=== PATIENT | female | born 1975 | race Two or more races ===

== ENCOUNTER 2021-03-18 23:32 | Emergency (ER) | payer MEDICAID, SELFPAY ==
--- NOTE | ~2021-03-18 | CT_ITS ---
EXAMINATION: CT ABDOMEN AND PELVIS WITHOUT CONTRAST CLINICAL INFORMATION: Suspicion for obstruction COMPARISON: None TECHNIQUE: Multidetector volumetric imaging was performed from the superior aspect of the liver through the pubic symphysis. Sagittal and coronal reformatted images were obtained on the technologist's workstation. This CT examination was performed using dose optimization techniques as appropriate, variously including the following: *Automated exposure control *Adjustment of mA and/or kV according to patient size (this includes techniques or standardized protocols for targeted exams where dose is matched to indication/reason for exam; i.e. extremities or head) *Use of iterative reconstruction technique DLP: 469 mGy-cm FINDINGS: LUNG BASES: The visualized lung bases are unremarkable. LIVER, GALLBLADDER, AND BILIARY TREE: The liver is normal in size, shape, and attenuation. No focal hepatic lesion or biliary ductal dilatation is present. The gallbladder is unremarkable with no evidence of radiopaque gallstones, gallbladder wall thickening, or obvious pericholecystic inflammatory changes. PANCREAS: Unremarkable. SPLEEN: Unremarkable. ADRENAL GLANDS: Unremarkable. KIDNEYS AND URETERS: The kidneys are normal in size, shape, and attenuation. No hydronephrosis, hydroureter, or obstructing calculi seen. Few scattered punctate renal calculi bilaterally No perinephric stranding. BLADDER: Minimally distended and grossly unremarkable. GASTROINTESTINAL TRACT: The small and large bowel are unremarkable without evidence for obstruction or wall thickening. The appendix is unremarkable. No free fluid or free air is seen. ABDOMINAL WALL: No significant hernia is appreciated. LYMPH NODES: Normal. VASCULAR: Mild scattered atherosclerotic calcifications. PELVIC VISCERA: Uterus appears prominent, which could represent underlying fibroids. OSSEOUS STRUCTURES: Unremarkable. CT/CT abdomen pelvis wo con IMPRESSION: 1. No acute findings identified. No evidence of bowel obstruction. 2. Prominent uterus suggesting underlying fibroids, which could be further assessed with ultrasound.
[2021-03-18 23:51] VITALS: BP 131/76; PULSE 92; RESP 16; TEMP 36.6; O2SAT 99; BMI 21.7
--- NOTE | 2021-03-19 | ECG_ITS ---
Test Reason : ABDOMINAL PAIN Blood Pressure : / mmHG Vent. Rate : 078 BPM Atrial Rate : 078 BPM P-R Int : 154 ms QRS Dur : 086 ms QT Int : 382 ms P-R-T Axes : 050 038 036 degrees QTc Int : 435 ms Normal sinus rhythm RSR' or QR pattern in V1 suggests right ventricular conduction delay Otherwise normal ECG No previous ECGs available Referred By: Scarlett Lima Electronically Signed By:DION MENDOZA MD
--- NOTE | 2021-03-19 00:01 | ED_ITS ---
HPI - Abdominal Pain General Chief Complaint: Abdominal Pain Stated Complaint: Abd pain Time Seen by Provider: 03/18/21 23:34 Source: patient Mode of arrival: ambulatory Limitations: no limitations History of Present Illness HPI narrative: Patient comes to emergency room complaining of abdominal pain. Patient states she feels very distended, bloated. Patient is known to have constipation but she has never had it this severe pain. Patient complaining of nausea, burping, passing gas. Patient denies vomiting or diarrhea. Denies fever chills, no urinary symptoms. Related Data Previous Rx's Medication Instructions Recorded polyethylene glycol 3350 17 gram 17 g PO BID #30 ea 03/19/21 oral powder packet (Miralax) Allergies Allergy/AdvReac Type Severity Reaction Status Date / Time simvastatin Allergy Unknown nausea, Unverified 09/27/18 00:00 vomiting and dizziness No Known Allergies Allergy Unverified 02/12/20 18:37 [No Known Allergies*] Review of Systems Review of Systems Constitutional : No Weight loss, No Fever, No Chills, No Night Sweats, No Fatigue, No Malaise ENT/Mouth : No Hearing loss, No Ear Pain, No Nasal Congestion, No Sinus Pain, No Hoarseness, No sore throat, No Rhinorrhea, No Swallowing Difficulty Eyes: No Eye Pain, No Swelling, No Redness, No Foreign Body, No Discharge, No Vision Changes Cardiovascular : No Chest Pain, No SOB, No Dyspnea on Exertion, No Orthopnea, No Edema, No Palpitations Respiratory : No Cough, No Sputum, No Wheezing, No Smoke Exposure, No Dyspnea Gastrointestinal : Complaining of Nausea, No Vomiting, No Diarrhea, complaining of chronic constipation, abdominal distension and abdominal pressure worse in the epigastric area Genitourinary : no irregular bleeding, No Dysuria, No Urinary Frequency, No Hematuria, No Urinary Incontinence, No Urgency, No Flank Pain, No Urinary Flow Changes, No Hesitancy Musculoskeletal : No joint pain, No Myalgias, No Joint Swelling Skin : No Skin Lesions, No rash Neuro : No Weakness, No Numbness, No Paresthesias, No Loss of Consciousness, No Dizziness, No Headache Psych : No Anxiety/Panic, No Depression, No SI/HI/AH/VH, No Social Issues, Heme/Lymph: No Bruising, No Bleeding,No Lymphadenopathy Endocrine : No Polyuria, No Polydipsia, No Temperature Intolerance Physical Exam Vital Signs: Vital Signs: Last Vital Signs Temp 98.4 F 03/19/21 01:24 Pulse 82 03/19/21 01:24 Resp 18 03/19/21 01:24 BP 115/66 03/19/21 01:24 Pulse Ox 97 03/19/21 01:24 Body Mass Index 21.7 Const: Other: Appearance: Alert. Oriented X3. No acute distress. Eyes: Pupils equal, round and reactive to light. ENT: Pharynx normal. Neck: Normal inspection. Neck supple. No lymph nodes noted. No crepitus CVS: Normal heart rate and rhythm. Pulses normal. Normal S1 and S2 Respiratory: No respiratory distress. Breath sounds normal. No Wheezing. No rales Abdomen: Soft ,, diffusely mildly tender, negative Pinto sign, distended, no guarding, no rebound Skin: Skin warm and dry. Normal skin color. Normal skin turgor. Extremities: No lower extremity edema. No Lacerations. No Rash Neuro: Oriented X 3. No motor deficit. No sensory deficit. Moving all extermities. No slurred speech. Course Course Course Narrative: I discussed the labs and imaging with the patient, no acute findings, discussed with the patient that she has possibly large fibroids, instructed to follow-up with her PCP/OBGYN. Patient states she has not taking any medication for constipation. MDM - Abdominal Pain Lab Data Result diagrams: 03/19/21 00:23 03/19/21 00:23 Labs: Lab Results 03/19/21 03/19/21 03/19/21 Range/Units 00:23 00:23 00:58 WBC 6.0 (4.8-10.8) X10*3/uL RBC 4.91 (4.20-5.50) X10*6/uL Hgb 15.1 (12.0-16.0) g/dl Hct 43.5 (37-47) % MCV 88.6 (80-98) fL MCH 30.8 (27.0-33.0) pg MCHC 34.7 (31.0-35.0) g/dl RDW 11.9 (11.0-16.0) % Plt Count 199 (160-400) X10*3/uL MPV 11.2 (9.4-12.3) fL Immature Gran % (Auto) 0.2 (0.0-0.4) % Neut % (Auto) 62.8 (45-73) % Lymph % (Auto) 26.0 (20-40) % [place] % (Auto) 9.5 (2-11) % Eos % (Auto) 1.2 (0-4) % Baso % (Auto) 0.3 (0-2) % Lymph # (Auto) 1.6 (1.2-4.9) X10*3/uL [place] # (Auto) 0.6 (0.1-1.2) X10*3/uL Eos # (Auto) 0.1 (0.0-0.4) X10*3/uL Baso # (Auto) 0.0 (0.0-0.2) X10*3/uL Abs Immat Gran (auto) 0.01 (0.00-0.03) X10*3/uL Absolute Neuts (auto) 3.8 (2.0-8.3) X10*3/uL Absolute Nucleated RBC 0.000 (0.0-0.012) X10*3/uL Nucleated RBC % (auto) 0.0 (0.0-0.2) /100WBC Sodium 137 (135-145) mmol/L Potassium 3.8 (3.3-5.1) mmol/L Chloride 105 (96-108) mmol/L Carbon Dioxide 22 (22-29) mmol/L Anion Gap 14 (12-20) BUN 15 (9-16) mg/dL Creatinine 0.72 (0.5-1.4) mg/dL Estim Creat Clear Calc 105.5 Estimated GFR > 60 Random Glucose 258 H (60-115) mg/dL Calcium 9.1 (8.4-10.2) mg/dL Total Bilirubin 0.9 (0.0-1.0) mg/dL Direct Bilirubin 0.3 (0.0-0.5) mg/dL AST 24 (5-31) U/L ALT 47 H (0-31) U/L Alkaline Phosphatase 74 (39-117) U/L Total Protein 7.1 (6.5-8.0) g/dL Albumin 4.4 (3.5-5.0) g/dL Lipase 61 (8-78) U/L Urine Color DK YELLOW Urine Appearance CLEAR Urine pH 6.0 (5.0-8.0) Ur Specific [place] >= 1.030 H (1.005-1.025) Urine Protein TRACE (NEG-TRACE) MG/DL Urine Glucose (UA) >=1000 H (NEG) MG/DL Urine Ketones 15 (NEG) MG/DL Urine Blood NEG (NEG) Urine Nitrite NEG (NEG) Ur Leukocyte Esterase NEG (NEG) Acetone, Qual Negative (Negative) Imaging Data CT scan - abdomen: Radiologist's impression: FINDINGS: LUNG BASES: The visualized lung bases are unremarkable.? LIVER, GALLBLADDER, AND BILIARY TREE: The liver is normal in size, shape, and attenuation. No focal hepatic lesion or biliary ductal dilatation is present. The gallbladder is unremarkable with no evidence of radiopaque gallstones, gallbladder wall thickening, or obvious pericholecystic inflammatory changes.? PANCREAS: Unremarkable.? SPLEEN: Unremarkable.? ADRENAL GLANDS: Unremarkable.? KIDNEYS AND URETERS: The kidneys are normal in size, shape, and attenuation. No hydronephrosis, hydroureter, or obstructing calculi seen. Few scattered punctate renal calculi bilaterally No perinephric stranding. BLADDER: Minimally distended and grossly unremarkable.? GASTROINTESTINAL TRACT: The small and large bowel are unremarkable without evidence for obstruction or wall thickening. The appendix is unremarkable. No free fluid or free air is seen. ABDOMINAL WALL: No significant hernia is appreciated.? LYMPH NODES: Normal. VASCULAR: Mild scattered atherosclerotic calcifications. PELVIC VISCERA: Uterus appears prominent, which could represent underlying fibroids.? OSSEOUS STRUCTURES: Unremarkable.? CT/CT abdomen pelvis wo con IMPRESSION: 1.? No acute findings identified. No evidence of bowel obstruction. 2.? Prominent uterus suggesting underlying fibroids, which could be further assessed with ultrasound. Discharge Plan Discharge Clinical Impression: Constipation, Abdominal distension Patient Disposition: Home, Self-Care Instructions: Constipation (ED) Prescriptions: New polyethylene glycol 3350 [Miralax] 17 gram powder in packet 17 g PO BID Qty: 30 RF: 0 PMFSH Past Medical History Medical History (Updated 03/19/21 @ 01:36 by Scarlett Lima MD) Diabetes mellitus Social History Social History Advance Directives: No Advance Directives Information Provided: No Patient : No
[2021-03-19 00:28] LABS: MANUAL DIFF FLAG NO
[2021-03-19 00:29] LABS: Basophils Percent Auto 0.3 % (0-2); Eosinophils Absolute Auto 0.1 X10*3/uL (0.0-0.4); Eosinophils Percent Auto 1.2 % (0-4); Hematocrit 43.5 % (37-47); Hemoglobin 15.1 g/dl (12.0-16.0); Imm Gran Abs Auto 0.01 X10*3/uL (0.00-0.03); Imm Gran Pct Auto 0.2 % (0.0-0.4); Lymphocytes Absolute Auto 1.6 X10*3/uL (1.2-4.9); Mean Corpuscular HGB Conc 34.7 g/dl (31.0-35.0); Mean Corpuscular Hemoglobin 30.8 pg (27.0-33.0); Mean Corpuscular Volume 88.6 fL (80-98); Mean Platelet Volume 11.2 fL (9.4-12.3); Monocytes Absolute Auto 0.6 X10*3/uL (0.1-1.2); Monocytes Percent Auto 9.5 % (2-11); Neutrophils Absolute Auto 3.8 X10*3/uL (2.0-8.3); Neutrophils Percent Auto 62.8 % (45-73); Platelet Count 199 X10*3/uL (160-400); Red Blood Count 4.91 X10*6/uL (4.20-5.50); Red Cell Distribution Width 11.9 % (11.0-16.0)
[2021-03-19 00:38] LABS: Acetone, serum QL Negative (Negative)
[2021-03-19 00:50] LABS: Alanine Aminotransferase 47 U/L (0-31); Albumin Level 4.4 g/dL (3.5-5.0); Alkaline Phosphatase 74 U/L (39-117); Anion Gap 14 (12-20); Aspartate Amino Transferase 24 U/L (5-31); Bilirubin Direct 0.3 mg/dL (0.0-0.5); Bilirubin Total 0.9 mg/dL (0.0-1.0); Blood Urea Nitrogen 15 mg/dL (9-16); Calcium 9.1 mg/dL (8.4-10.2); Carbon Dioxide 22 mmol/L (22-29); Chloride 105 mmol/L (96-108); Creatinine Clr Calc Pharmacy 105.5; Estimated Glomerular Filt Rate > 60; Glucose Random 258 mg/dL (60-115); Lipase 61 U/L (8-78); Potassium 3.8 mmol/L (3.3-5.1); Sodium 137 mmol/L (135-145); Total Protein 7.1 g/dL (6.5-8.0)
[2021-03-19 01:08] LABS: Appearance Urine CLEAR; Color Urine DK YELLOW; Glucose Urine UA >=1000 MG/DL (NEG); Leukocyte Esterase Urine NEG (NEG); Nitrite Urine NEG (NEG); Specific Gravity - Urine >= 1.030 (1.005-1.025); Urine Blood NEG (NEG); Urine Ketones 15 MG/DL (NEG); Urine Protein TRACE MG/DL (NEG-TRACE)
[2021-03-19 01:24] VITALS: BP 115/66; PULSE 82; RESP 18; TEMP 36.9; O2SAT 97
[2021-03-19 01:48] LABS: Mucus Urine 3+ /LPF; RBC Urine 0-2 /HPF (0); Squamous Epithelial Cell Urine 1+ /LPF; WBC Urine 0-2 /HPF (0-4)
== END 2021-03-19 02:00 | disposition home or self-care (01) ==
PROVIDERS: Emergency Provider Emergency Medicine; PCP Internal Medicine
DX: R14.0 Abdominal distension (gaseous) (principal); K59.00 Constipation, unspecified; Z79.899 Other long term (current) drug therapy
CPT/HCPCS: 36415; 74176; 80048; 80076; 81001; 82009; 83690; 85025; 93005; 99284

== ENCOUNTER 2021-04-29 12:13 | Emergency (ER) | payer MEDICAID, SELFPAY ==
[2021-04-29 13:18] VITALS: BP 117/74; PULSE 79; RESP 20; TEMP 36.2; O2SAT 99; BMI 22.3
== END 2021-04-29 17:05 | disposition left against medical advice (07) ==
PROVIDERS: Emergency Provider Emergency Medicine; PCP Internal Medicine
DX: R31.9 Hematuria, unspecified (principal)
CPT/HCPCS: 99282; 99283

== ENCOUNTER 2021-05-13 13:05 | Outpatient (REF) | payer MEDICAID, SELFPAY ==
[2021-05-13 14:56] LABS: Hematocrit 46.2 % (37.0-47.0); Hemoglobin 15.3 g/dl (12.0-16.0); Mean Corpuscular HGB Conc 33.1 g/dl (31.0-35.0); Mean Corpuscular Hemoglobin 30.1 pg (27.0-33.0); Mean Corpuscular Volume 90.8 fL (80.0-98.0); Mean Platelet Volume 11.2 fL (9.4-12.3); Platelet Count 263 X10*3/uL (160-400); Red Blood Count 5.09 X10*6/uL (4.20-5.50); Red Cell Distribution Width 12.1 % (11.0-16.0); White Blood Count 5.9 X10*3/uL (4.8-10.8)
[2021-05-13 15:36] LABS: Thyroid Stimulating Hormone 0.74 uIU/mL (0.32-4.0)
[2021-05-15 09:51] LABS: BV Int Neg Control Negative (Negative); BV Int Pos Control Positive (Positive)
[2021-05-15 11:40] LABS: CT PCR NOT DETECTED (Not Detect.); NG PCR NOT DETECTED (Not Detect.)
[2021-05-19 04:26] LABS: HPV mRNA E6/E7 rflx Not Detected (Not Detected)
== END 2021-05-13 13:06 | disposition home or self-care (01) ==
LOC: HO.LAB 13:05
PROVIDERS: PCP Internal Medicine; Visit Provider Advanced Practice Midwife
DX: Z01.411 Encounter for gynecological examination (general) (routine) with abnormal findings (principal); Z11.51 Encounter for screening for human papillomavirus (HPV); N93.9 Abnormal uterine and vaginal bleeding, unspecified; N94.6 Dysmenorrhea, unspecified; N92.0 Excessive and frequent menstruation with regular cycle; N92.1 Excessive and frequent menstruation with irregular cycle
CPT/HCPCS: 36415; 84443; 85027; 87480; 87491; 87510; 87591; 87624; 87660; 88142

== ENCOUNTER 2021-06-07 13:53 | Outpatient (REF) | payer MEDICAID, SELFPAY ==
--- NOTE | ~2021-06-07 | US_ITS ---
EXAMINATION: US PELVIC AND TRANSVAGINAL CLINICAL INFORMATION: Excessive and frequent menstruation. COMPARISON: Previous pelvic ultrasound October [address] of the abdomen and pelvis February 2021 TECHNIQUE: Ultrasound of the pelvis is performed using both transabdominal and transvaginal transducers along with Doppler. Transvaginal imaging is performed due to inadequate visualization transabdominally. FINDINGS: The uterus is anteverted and measures 11.4 x 6.5 x 8 cm in dimension. Uterine echotexture is heterogeneous. There is a 2.2 x 1.9 x 3.4 cm hypoechoic lesion in the anterior lower uterine segment. There are 2 smaller complex cystic lesions in the anterior uterine body near the endometrium measuring 1.4 x 1.2 x 1.3 cm and 0.7 x 0.7 x 0.8 cm. Appearance is questionable for fibroids with cystic degeneration versus adenomyoma and cysts related to adenomyosis. Endometrial thickness is normal measuring 1 cm. The right ovary measures 2.8 x 1.7 x 2 cm. There is a minimally complex right ovarian cyst measuring 1.3 x 1 x 1 cm with some dependent low level echoes. The left ovary is normal-appearing and measures 2.8 x 1.5 x 2.4 cm. There is no fluid in the pelvis. US/US pelvic and transvaginal IMPRESSION: Slightly enlarged heterogeneous uterus. Three solid and cystic lesions in the anterior uterine body and lower uterine segment, question representing fibroids versus adenomyoma/adenomyosis. Small 1.3 x 1 cm minimally complex right ovarian cyst.
== END 2021-06-07 13:54 | disposition home or self-care (01) ==
LOC: HO.HMGCX 13:53
PROVIDERS: PCP Internal Medicine; Visit Provider Advanced Practice Midwife
DX: N92.0 Excessive and frequent menstruation with regular cycle (principal); N93.9 Abnormal uterine and vaginal bleeding, unspecified
CPT/HCPCS: 76830; 76856

== ENCOUNTER 2021-06-10 08:23 | Outpatient (REF) | payer MEDICAID, SELFPAY | END 2021-06-10 08:24 | disposition home or self-care (01) | LOC: HO.LAB 08:23 | PROVIDERS: PCP Internal Medicine; Visit Provider Advanced Practice Midwife | DX: N93.9 Abnormal uterine and vaginal bleeding, unspecified (principal); N83.299 Other ovarian cyst, unspecified side; Z71.2 Person consulting for explanation of examination or test findings; Z32.02 Encounter for pregnancy test, result negative | CPT/HCPCS: 58100; 81025; 88305 ==

== ENCOUNTER 2021-08-09 14:08 | Outpatient (REF) | payer MEDICAID, SELFPAY ==
--- NOTE | ~2021-08-09 | US_ITS ---
EXAMINATION: US PELVIS CLINICAL INFORMATION: History of complex cyst. COMPARISON: Ultrasound pelvis 06/07/2021. TECHNIQUE: Ultrasound of the pelvis is performed using both transabdominal and transvaginal transducers along with Doppler. Transvaginal imaging is performed due to inadequate visualization transabdominally. FINDINGS: UTERUS: The uterus is anteverted, anteflexed and measures 12.7 x 6.7 x 8.5 cm. The double wall endometrial thickness is 1.0 cm. The uterus is smooth in contour and has normal myometrial echogenicity. There are several hypoechoic lesions. The largest lesion in the posterior lower uterine segment measures 3.0 x 2.6 x 2.5 cm. Previously noted 2.2 x 1.9 x 3.4 cm. Previously visualized two cystic lesions in the body of uterus are not visualized at this time. ADNEXA: Both ovaries are visualized. There is normal color flow to the adnexa. There is no ovarian torsion. There is a small amount of free fluid in the cul-de-sac. Right ovary measures 3.4 x 3.1 x 2.8 and volume 11.4 mL. There is an anechoic resolving corpus luteal cyst measuring 1.3 x 1.5 x 1.3 cm. Left ovary measures 2.9 x 1.7 x 2.4 cm and volume 7.2 mL. US/US pelvic and transvaginal IMPRESSION: Slight increase in the known lower uterine segment heterogeneous-appearing fibroid. Two cystic lesions in the uterus are not seen at this time. There is a resolving corpus luteal cyst right ovary. Left ovary is unremarkable. There is a small amount of free fluid in the cul-de-sac.
[2021-08-15 19:27] LABS: CA 125 New Method 31 U/mL (<35); CA-125 29 U/mL (<35)
== END 2021-08-09 14:09 | disposition home or self-care (01) ==
LOC: HO.US 14:08
PROVIDERS: PCP Internal Medicine; Visit Provider Advanced Practice Midwife
DX: N83.299 Other ovarian cyst, unspecified side (principal)
CPT/HCPCS: 36415; 76830; 76856; 86304

== ENCOUNTER → 2021-08-16 12:34 | Outpatient (BNVA) | payer MEDICAID, SELFPAY | PROVIDERS: PCP Internal Medicine; Referring Provider Internal Medicine; Visit Provider Nurse Practitioner Family | DX: K21.9 Gastro-esophageal reflux disease without esophagitis (principal); K59.01 Slow transit constipation | CPT/HCPCS: 83013; 99202 ==

== ENCOUNTER 2021-08-16 15:30 | Outpatient (REF) | payer MEDICAID, SELFPAY ==
[2021-08-17 11:29] LABS: H Pylori Breath Test Positive (Negative)
== END 2021-08-16 15:31 | disposition home or self-care (01) ==
LOC: HO.LNP 15:30
PROVIDERS: Visit Provider Nurse Practitioner Family
DX: N93.9 Abnormal uterine and vaginal bleeding, unspecified (principal); N83.299 Other ovarian cyst, unspecified side; Z71.2 Person consulting for explanation of examination or test findings
CPT/HCPCS: 83013

== ENCOUNTER → 2021-08-19 08:32 | Outpatient (BNVA) | payer MEDICAID, SELFPAY | PROVIDERS: PCP Internal Medicine; Visit Provider Advanced Practice Midwife | DX: Z30.430 Encounter for insertion of intrauterine contraceptive device (principal) | CPT/HCPCS: 58300; 81025 ==

== ENCOUNTER 2021-09-27 08:24 | Outpatient (REF) | payer MEDICAID, SELFPAY ==
[2021-09-27 09:06] LABS: Estimated Average Glucose 194 mg/dL; Hemoglobin A1c % 8.4 %
[2021-10-03 14:37] LABS: Vitamin D 25-OH, D2 11 ng/mL; Vitamin D 25-OH, D3 16 ng/mL; Vitamin D 25-OH, Total 27 ng/mL (30-100)
== END 2021-09-27 08:25 | disposition home or self-care (01) ==
LOC: HO.LAB 08:24
PROVIDERS: PCP Internal Medicine; Visit Provider Nurse Practitioner Family
DX: E11.9 Type 2 diabetes mellitus without complications (principal); E55.9 Vitamin D deficiency, unspecified
CPT/HCPCS: 36415; 82306; 83036

== ENCOUNTER → 2021-09-30 10:53 | Outpatient (BNVA) | payer MEDICAID, SELFPAY | PROVIDERS: PCP Internal Medicine; Referring Provider Internal Medicine; Visit Provider Nurse Practitioner Family | DX: Z12.11 Encounter for screening for malignant neoplasm of colon (principal); K21.9 Gastro-esophageal reflux disease without esophagitis; K58.1 Irritable bowel syndrome with constipation | CPT/HCPCS: 99212 ==

== ENCOUNTER 2022-01-31 08:48 | Day surgery (SDC) | payer MEDICAID, SELFPAY ==
--- NOTE | 2022-01-27 12:33 | P.CONAN_ITS ---
Documented by User: Lisa Sanchez NP 01/27/22 12:33 HPI - Anesthesia Eval Consult details Narrative: 46yo F for Upper Endoscopy and Colonoscopy PMF Active Problems Active Problems: All Active Problems (Updated 09/30/21 @ 12:00 by Telma Lambert, [facility]) Helicobacter pylori (H. pylori) (Acute) Complex ovarian cyst (Acute) Abnormal uterine bleeding (AUB) (Acute) Heavy menses (Acute) Past Medical History Medical History Abnormal uterine bleeding (AUB) Diabetes mellitus Gastroesophageal reflux disease Heavy menses Helicobacter pylori (H. pylori) Irritable bowel syndrome Family History Family History Father Diabetes HTN (hypertension) Mother Diabetes Paternal Grandfather Diabetes Maternal Grandfather Colon cancer Surgical History Surgical History H/O LEEP Hx of colonoscopy Social History Social History (Updated 09/30/21 @ 11:26 by Olamide Fonseca) Household Members: Children Alcohol intake: never Patient Tobacco Use Status: Never used Tobacco Use of substances other than those prescribed or required for medical reasons: No Are you DNR?: No Advance Directives: No Advance Directives Information Provided: Yes Patient : No (ucg neg) Meds Allergies Allergy/AdvReac Type Severity Reaction Status Date / Time simvastatin Allergy Unknown nausea, Verified 01/25/22 10:59 vomiting and dizziness Home Medications Medication Instructions Recorded Confirmed Last Taken Type atorvastatin 40 mg tablet 40 mg PO DAILY 05/13/21 01/25/22 Unknown History dulaglutide 3 mg/0.5 mL mg subcut QWEEK 05/13/21 Unknown History subcutaneous pen injector (Trulicity) empagliflozin 25 mg tablet 25 mg PO QAM 05/13/21 01/25/22 Unknown History (Jardiance) gabapentin 300 mg capsule 300 mg PO BID 05/13/21 01/25/22 Unknown History insulin glargine 100 unit/mL 10 unit subcut QPM 05/13/21 Unknown History subcutaneous solution (Lantus U-100 Insulin) lisinopril 2.5 mg tablet 2.5 mg PO DAILY 05/13/21 01/25/22 Unknown History levonorgestrel 20 mcg/24 hours (7 vaginal DAILY 08/16/21 Unknown History yrs) 52 mg intrauterine device (Mirena) Exam Exam Date and Time: January 27, 2022 123 Assessment and Plan Assessment Anesthesia Assessment: Chart Reviewed Documented by User: Pradeep Cabrera MD 01/31/22 10:03 [facility] Past Medical History Medical History Abnormal uterine bleeding (AUB) Diabetes mellitus Gastroesophageal reflux disease Heavy menses Helicobacter pylori (H. pylori) Irritable bowel syndrome Family History Family History Father Diabetes HTN (hypertension) Mother Diabetes Paternal Grandfather Diabetes Maternal Grandfather Colon cancer Family history of problems with anesthesia: No Surgical History Surgical History H/O LEEP Hx of colonoscopy History of Problems with Anesthesia: No Social History Social History (Updated 09/30/21 @ 11:26 by Olamide Fonseca) Household Members: Children Alcohol intake: never Patient Tobacco Use Status: Never used Tobacco Use of substances other than those prescribed or required for medical reasons: No Are you DNR?: No Advance Directives: No Advance Directives Information Provided: Yes Patient : No (ucg neg) Meds Allergies Allergy/AdvReac Type Severity Reaction Status Date / Time simvastatin Allergy Unknown nausea, Verified 01/25/22 10:59 vomiting and dizziness Home Medications Medication Instructions Recorded Confirmed Last Taken Type atorvastatin 40 mg tablet 40 mg PO DAILY 05/13/21 01/25/22 Unknown History dulaglutide 3 mg/0.5 mL mg subcut QWEEK 05/13/21 Unknown History subcutaneous pen injector (Trulicity) empagliflozin 25 mg tablet 25 mg PO QAM 05/13/21 01/25/22 Unknown History (Jardiance) gabapentin 300 mg capsule 300 mg PO BID 05/13/21 01/25/22 Unknown History insulin glargine 100 unit/mL 10 unit subcut QPM 05/13/21 Unknown History subcutaneous solution (Lantus U-100 Insulin) lisinopril 2.5 mg tablet 2.5 mg PO DAILY 05/13/21 01/25/22 Unknown History levonorgestrel 20 mcg/24 hours (7 vaginal DAILY 08/16/21 Unknown History yrs) 52 mg intrauterine device (Mirena) Exam Airway Mallampati Class: II TM Dist: >3cm Neck ROM: Full Loose/Missing/Broken Teeth: No Heart: rrr Lungs: clear Assessment and Plan Final Anesthetic Review Family History of Problems with Anesthesia: No History of Problems with Anesthesia: No NPO: Yes ASA Class: II Final Preanesthetic Review: No Changes in Pt Med Stat, Meds/Allgs Chart Reviewed, Consent Obtained/Reviewed and Anes Risks/Benef Reviewed Patient Risk: Intermediate Procedure Risk: Low Anesthetic Plan Anesthetic Plan: MAC: Disposition: Standard PACU
--- NOTE | 2022-01-31 09:14 | MHC.SHP ---
Pre-Procedural Eval Section A Date of Service: 01/31/22 Section B Chief Complaint: IBS,reflux disease,screening Relevant Family History (Specify if Yes): No Relevant Social History: None Present Medications: see Short Stay Collaborative assessment Medical History: Significant History (Abnormal uterine bleeding (AUB) Diabetes mellitus Gastroesophageal reflux disease Heavy menses Helicobacter pylori (H. pylori) Irritable bowel syndrome) History of Previous Operations: Relevant previous surgery/procedure and date(s) (LEEP, colonoscopy) Allergies: Allergies Allergy/AdvReac Type Severity Reaction Status Date / Time simvastatin Allergy Unknown nausea, Verified 01/25/22 10:59 vomiting and dizziness Review of Systems Sugical H&P ROS: Negative: Constitution, Cardiovascular, Respiratory, Neurological, Psychiatric, Hem-Onc, Allergic/Immunologic, Gastrointestinal, Genitourinary, Musculoskeletal, Integumentary, Endocrine and Eyes/Ears/Nose/Throat Exam Surgical H&P Exam: Normal: HEENT, Normal: Heart, Normal: Lungs, Normal: Extremities, Normal: Abdomen, Normal: Skin and Normal: Neurological Plan Diagnosis/Plan: Unchanged I have reviewed the history and physical and performed a pertinent physical examination on my patient. No changes have occurred unless specified.
[2022-01-31 09:27] LABS: UPreg QC Valid YES; Urine Pregnancy NEGATIVE (NEGATIVE)
[2022-01-31 09:35] VITALS: BP 121/70; PULSE 88; RESP 18; TEMP 36.2; O2SAT 99; BMI 24.1
[2022-01-31 09:36] VITALS: BMI 24.1
[2022-01-31] MEDS: Lactated Ringers 1,000 ML 100 ML IVCONT (09:53)
[2022-01-31 10:00] LABS: Glucose, Whole Blood 148 mg/dL (60-115)
--- NOTE | 2022-01-31 10:03 | P.OP_ITS ---
Operative Note Operative Note Date of Service: 01/31/22 Narrative: Operative Information Procedure Description: EGD, Colonoscopy Indication: GERD, abdominal pain Anesthesia: MAC FLEXIBLE TRANSORAL UPPER GASTROINTESTINAL ENDOSCOPY AND COLONOSCOPY PROCEDURE NOTE UPPER ENDOSCOPY Consent: Indications for the procedure and potential complications of bleeding, perforation, reaction to medications and missed diagnosis were discussed with the patient and informed consent was obtained. Instrument: Olympus GIF H 190 J mid size upper endoscope Monitoring: Vital signs and clinical assessment, continuous EKG monitoring, Pulse oximetry, Carbon Dioxide monitoring and blood pressure monitoring were done throughout the procedure. Procedure: The patient was placed in the left lateral decubitis position and pre-procedure medications were administered and a bite block was placed. The endoscope was inserted into the mouth and advanced under direct vision to the third part of duodenum. A careful inspection was made as the upper endoscope was withdrawn including a retroflexed examination of the proximal stomach; Findings and interventions are described below. Findings: Larynx:normal Esophagus: GE junction at 39 cm, diaphragm hiatus at 39 cm, normal mucosa Stomach: Patchy erythema. Biopsies were obtained. Grade 2 flap valve on retroflexed examination of the cardia. Duodenum: PAtchy erythema, bx taken Intervention: Biopsies as noted above COLONOSCOPY Instrument: Olympus variable stiffness pediatric scope 190L Colonoscopy Monitoring: Vital signs and clinical assessment, continuous EKG monitoring, Pulse oximetry, Carbon Dioxide monitoring and blood pressure monitoring were done throughout the procedure. Colon withdrawal time was [] minutes. Procedure: The patient was placed in the left lateral decubitis position and pre-procedure medications were administered. After a digital rectal examination of the ano-rectum, the video colonoscope was inserted into the rectum and advanced through the colon to the cecum/TI. The colonoscope was slowly withdrawn in a retrograde panoramic fashion and the colon mucosa was carefully examined including a retroflexed view of the rectum. Findings and interventions are described below. Procedure Difficulty:moderate due to looping, pressure applied Findings: Terminal Ileum-normal, bx taken ranomd colon bx taken Cecum:normal Ascending Colon: normal Transverse Colon -normal Descending Colon:normal Sigmoid Colon: normal Rectum: Retroflexion with small internal hemorrhoids, grade I Anorectum - normal Colon preparation: [place] Bowel Preparation Scale Right colon; 1 Transverse colon: 1-2 Left colon; 1 (0 = Unprepared colon segment with mucosa not seen due to solid stool that cannot be cleared. 1 = Portion of mucosa of the colon segment seen, but other areas of the colon segment not well seen due to staining, residual stool and/or opaque liquid. 2 = Minor amount of residual staining, small fragments of stool and/or opaque liquid, but mucosa of colon segment seen well. 3 = Entire mucosa of colon segment seen well with no residual staining, small fragments of stool or opaque liquid) Impression and Post Procedure Diagnosis: Endoscopy Findings: gastritis Colonoscopy Findings: poor prep internal hemorrhoids Plan: Await Pathology results Repeat Colonoscopy in 6-12 months or earlier if clinically indicated, check for compliance with prep, if took correctly then next time 2 d of clear liquids if possible High fiber diet leaflet avoid straining at stool, epsom salts and sitz bath, anusol supps or cream Above findings were reviewed with the patient and relevant handouts were provided if indicated.
[2022-01-31 10:50] VITALS: BP 109/68; PULSE 91; RESP 16; TEMP 36.1; O2SAT 97
[2022-01-31 11:05] VITALS: BP 116/72; PULSE 85; RESP 16; O2SAT 97
[2022-01-31 11:19] VITALS: BP 108/68; PULSE 86; RESP 16; TEMP 36.2; O2SAT 96
[2022-01-31 11:34] VITALS: BP 106/68; PULSE 77; RESP 15; O2SAT 96
== END 2022-01-31 12:17 | disposition home or self-care (01) ==
PROVIDERS: Nurse Practitioner; PCP Internal Medicine; Visit Provider Internal Medicine Gastroenterology
PROC: (CPT 45380; principal; 2022-01-31 10:20)
DX: Z12.11 Encounter for screening for malignant neoplasm of colon (principal); K64.0 First degree hemorrhoids; K58.1 Irritable bowel syndrome with constipation; K21.9 Gastro-esophageal reflux disease without esophagitis; K29.50 Unspecified chronic gastritis without bleeding; B96.81 Helicobacter pylori [H. pylori] as the cause of diseases classified elsewhere; K44.9 Diaphragmatic hernia without obstruction or gangrene; N92.0 Excessive and frequent menstruation with regular cycle; E11.9 Type 2 diabetes mellitus without complications; Z79.4 Long term (current) use of insulin; Z79.899 Other long term (current) drug therapy; Z88.8 Allergy status to other drugs, medicaments and biological substances; Z86.16 Personal history of COVID-19
CPT/HCPCS: 45380; 43239; 81025; 82947; 88305; 88342

== ENCOUNTER → 2022-02-14 08:57 | Outpatient (BNVA) | payer MEDICAID, SELFPAY | PROVIDERS: PCP Internal Medicine; Visit Provider Nurse Practitioner Family | DX: K21.9 Gastro-esophageal reflux disease without esophagitis (principal); K58.1 Irritable bowel syndrome with constipation; A04.8 Other specified bacterial intestinal infections; Z98.890 Other specified postprocedural states | CPT/HCPCS: 99212 ==

== ENCOUNTER → 2022-04-04 08:54 | Outpatient (BNVA) | payer MEDICAID, SELFPAY | PROVIDERS: PCP Internal Medicine; Visit Provider Nurse Practitioner Family | DX: A04.8 Other specified bacterial intestinal infections (principal); K58.1 Irritable bowel syndrome with constipation; K21.9 Gastro-esophageal reflux disease without esophagitis | CPT/HCPCS: 99212 ==

== ENCOUNTER 2022-06-22 09:00 | Outpatient (REF) | payer MEDICAID, SELFPAY ==
[2022-06-22 10:39] LABS: Hemoglobin 14.9 g/dl (12.0-16.0); Mean Corpuscular HGB Conc 33.9 g/dl (31.0-35.0); Mean Corpuscular Hemoglobin 30.5 pg (27.0-33.0); Mean Platelet Volume 11.2 fL (9.4-12.3); Platelet Count 248 X10*3/uL (160-400); Red Blood Count 4.89 X10*6/uL (4.20-5.50); Red Cell Distribution Width 12.4 % (11.0-16.0); White Blood Count 4.4 X10*3/uL (4.8-10.8)
[2022-06-22 11:32] LABS: Thyroid Stimulating Hormone 0.68 uIU/mL (0.32-4.0)
[2022-06-22 12:20] LABS: CT PCR NOT DETECTED (Not Detect.); NG PCR NOT DETECTED (Not Detect.)
[2022-06-23 12:18] LABS: BV Int Neg Control Negative (Negative); BV Int Pos Control Positive (Positive)
[2022-06-24 09:04] LABS: CA-125 22 U/mL (<35)
== END 2022-06-22 09:01 | disposition home or self-care (01) ==
LOC: HO.LAB 09:00
PROVIDERS: PCP Nurse Practitioner Primary Care; Visit Provider Advanced Practice Midwife
DX: Z30.432 Encounter for removal of intrauterine contraceptive device (principal); N83.299 Other ovarian cyst, unspecified side; N92.1 Excessive and frequent menstruation with irregular cycle
CPT/HCPCS: 0353U; 58301; 81025; 84443; 85027; 86304; 87480; 87510; 87660

== ENCOUNTER 2022-06-22 09:40 | Outpatient (REF) | payer MEDICAID, SELFPAY | END 2022-06-22 09:41 | disposition home or self-care (01) | LOC: HO.LNP 09:40 | PROVIDERS: Visit Provider Advanced Practice Midwife | DX: Z13.89 Encounter for screening for other disorder (principal) ==

== ENCOUNTER 2022-06-25 | Outpatient (REF) | payer MEDICAID, SELFPAY | END 2022-06-25 00:01 | disposition home or self-care (01) | LOC: HO.LNP | PROVIDERS: Visit Provider Nurse Practitioner Family | DX: K21.9 Gastro-esophageal reflux disease without esophagitis (principal) | CPT/HCPCS: 87338 ==

== ENCOUNTER → 2022-06-27 08:47 | Outpatient (BNVA) | payer MEDICAID, SELFPAY | PROVIDERS: PCP Nurse Practitioner Primary Care; Visit Provider Nurse Practitioner Family | DX: K21.9 Gastro-esophageal reflux disease without esophagitis (principal); K58.1 Irritable bowel syndrome with constipation; A04.8 Other specified bacterial intestinal infections | CPT/HCPCS: 99212 ==

== ENCOUNTER 2022-12-04 10:27 | Outpatient (REF) | payer MEDICAID, SELFPAY ==
--- NOTE | ~2022-12-04 | MM_ITS ---
EXAMINATION: MM SCREENING DIGITAL BREAST TOMOSYNTHESIS, BILATERAL CLINICAL INFORMATION: Screening. Asymptomatic. The lifetime risk of breast cancer based on the Tyrer-Cuzick Model is 14%. COMPARISON: Mammography: This study is compared with prior exams dating back to 2017. TECHNIQUE: Digital breast tomosynthesis is performed in both the craniocaudal and mediolateral oblique views along with computer-aided detection (CAD). Synthesized 2D images are generated from the tomosynthesis. FINDINGS: There are scattered areas of fibroglandular density (ACR BI-RADS breast composition Category b). There are no significant masses, abnormal calcifications, or other abnormalities. MM/MM tomosynthesis screening BI IMPRESSION: No mammographic evidence of malignancy. ASSESSMENT: BI-RADS BI-RADS 1 - Negative RECOMMENDATION: Routine annual mammography screening. 1 year F/U This examination should not preclude the clinical evaluation of a suspicious palpable abnormality. This patient's information was entered into a reminder system with a target due date for their next mammogram.
== END 2022-12-04 10:28 | disposition home or self-care (01) ==
LOC: HO.MAMMO 10:27
PROVIDERS: PCP Nurse Practitioner Primary Care; Visit Provider Nurse Practitioner Primary Care
DX: Z12.31 Encounter for screening mammogram for malignant neoplasm of breast (principal)
CPT/HCPCS: 77063; 77067

== ENCOUNTER → 2022-12-04 10:30 | Outpatient (BNV) | payer MEDICAID, SELFPAY | PROVIDERS: PCP Nurse Practitioner Primary Care; Visit Provider Radiology Diagnostic Radiology | DX: Z12.31 Encounter for screening mammogram for malignant neoplasm of breast (principal) | CPT/HCPCS: 77063; 77067 ==

== ENCOUNTER 2023-04-05 08:36 | Outpatient (REF) | payer MEDICAID, SELFPAY ==
[2023-04-05 11:47] LABS: Anion Gap 11 (12-20); Blood Urea Nitrogen 15 mg/dL (9-16); Calcium 8.9 mg/dL (8.4-10.2); Carbon Dioxide 24 mmol/L (22-29); Chloride 108 mmol/L (96-108); Cholesterol 293 mg/dL (<200); Estimated Glomerular Filt Rate > 60; Glucose Random 173 mg/dL (60-115); HDL Cholesterol 55 mg/dL (>40); LDL Cholesterol Calculated 216 mg/dL (<100); Potassium 4.1 mmol/L (3.3-5.1); Sodium 139 mmol/L (135-145); Triglycerides 110 mg/dL (<150)
[2023-04-05 11:57] LABS: Creatinine Urine 84.26 mg/dL; Microalbum/Creatinine Ratio Ur 11.8 ug/mg cr (<30)
== END 2023-04-05 08:37 | disposition home or self-care (01) ==
LOC: HO.HHCL 08:36
PROVIDERS: Visit Provider Nurse Practitioner Primary Care
DX: E11.69 Type 2 diabetes mellitus with other specified complication (principal); E78.5 Hyperlipidemia, unspecified
CPT/HCPCS: 36415; 80048; 80061; 82043; 82570

== ENCOUNTER 2023-05-03 08:13 | Emergency (ER) | payer MEDICAID, SELFPAY ==
--- NOTE | ~2023-05-03 | CT_ITS ---
EXAMINATION: CT ABDOMEN AND PELVIS WITH CONTRAST CLINICAL INFORMATION: Right lower quadrant pain. COMPARISON: 03/19/2021 TECHNIQUE: Multidetector volumetric images were obtained from the superior aspect of the liver through the pubic symphysis following administration 85 mL of Omnipaque 350 intravenous contrast. Sagittal and coronal reformatted images were obtained on the technologist's workstation. Oral contrast: No This CT examination was performed using dose optimization techniques as appropriate, variously including the following: *Automated exposure control *Adjustment of mA and/or kV according to patient size (this includes techniques or standardized protocols for targeted exams where dose is matched to indication/reason for exam; i.e. extremities or head) *Use of iterative reconstruction technique DLP: 470 mGy-cm FINDINGS: LUNG BASES: The visualized lung bases are unremarkable. LIVER, GALLBLADDER, AND BILIARY TREE: The liver is decreased in attenuation. No focal hepatic lesion or biliary ductal dilatation is present. The gallbladder is unremarkable with no evidence of radiopaque gallstones, gallbladder wall thickening, or obvious pericholecystic inflammatory changes. PANCREAS: Unremarkable. SPLEEN: Unremarkable. ADRENAL GLANDS: Unremarkable. KIDNEYS AND URETERS: The kidneys are normal in size, shape, and attenuation. No hydronephrosis, hydroureter, or calculi seen. No perinephric stranding. BLADDER: Unremarkable. GASTROINTESTINAL TRACT: The small and large bowel are unremarkable. The appendix is unremarkable. ABDOMINAL WALL: No significant hernia is appreciated. LYMPH NODES: No bulky lymphadenopathy. VASCULAR: Normal caliber abdominal aorta. PELVIC VISCERA: Enlarged globular heterogeneous uterus with pedunculated fibroid measuring 3.3 x 3.5 x 3.9 cm. OSSEOUS STRUCTURES: No destructive bone lesions. CT/CT abdomen pelvis w IV con IMPRESSION: Finding suggestive of uterine adenomyosis. Further characterization with MRI pelvis is recommended. Subserosal fibroid measures 3.3 x 3.5 x 3.9 cm. Hepatic steatosis.
[2023-05-03 08:22] VITALS: BP 143/73; PULSE 103; RESP 18; TEMP 35.6; O2SAT 99; BMI 24.3
[2023-05-03 08:40] LABS: MANUAL DIFF FLAG NO
[2023-05-03 08:43] LABS: Appearance Urine Clear; Color Urine Yellow; Glucose Urine UA >=1000 mg/dL (Negative); Leukocyte Esterase Urine Negative (Negative); Nitrite Urine Negative (Negative); PH 5.5 (5.0-9.0); Specific Gravity - Urine >= 1.030 (1.005-1.025); UMIC TRIGGER UACC YES; Urine Blood Negative (Negative); Urine Ketones 40 mg/dL (Negative); Urine Protein Negative (Neg-Trace)
[2023-05-03 08:44] LABS: UPreg QC Valid YES; Urine Pregnancy NEGATIVE (NEGATIVE)
[2023-05-03 08:48] LABS: Bacteria Urine None Seen (None Seen); Hyaline Casts Urine 0-2 /LPF (0-2); RBC Urine 0-2 /HPF (0-2); WBC Urine 0-5 /HPF (0-5)
[2023-05-03 08:48] LABS: Basophils Percent Auto 0.2 % (0-2); Eosinophils Absolute Auto 0.1 X10*3/uL (0.0-0.4); Eosinophils Percent Auto 1.2 % (0-4); Hematocrit 46.4 % (37.0-47.0); Hemoglobin 15.3 g/dl (12.0-16.0); Imm Gran Abs Auto 0.01 X10*3/uL (0.00-0.03); Imm Gran Pct Auto 0.2 % (0.0-0.4); Lymphocytes Absolute Auto 0.8 X10*3/uL (1.2-4.9); Mean Corpuscular Hemoglobin 29.3 pg (27.0-33.0); Mean Corpuscular Volume 88.9 fL (80.0-98.0); Mean Platelet Volume 11.1 fL (9.4-12.3); Monocytes Absolute Auto 0.4 X10*3/uL (0.1-1.2); Monocytes Percent Auto 6.7 % (2-11); Neutrophils Absolute Auto 4.6 x10*3/uL (2.0-8.3); Neutrophils Percent Auto 78.7 % (45-73); Platelet Count 233 X10*3/uL (160-400); Red Blood Count 5.22 X10*6/uL (4.20-5.50); Red Cell Distribution Width 12.9 % (11.0-16.0); White Blood Count 5.8 X10*3/uL (4.8-10.8)
[2023-05-03 08:57] LABS: Alanine Aminotransferase 48 U/L (0-31); Albumin Level 4.3 g/dL (3.5-5.0); Alkaline Phosphatase 67 U/L (39-117); Anion Gap 12 (12-20); Aspartate Amino Transferase 44 U/L (5-31); Bilirubin Direct 0.2 mg/dL (0.0-0.5); Bilirubin Total 0.7 mg/dL (0.0-1.0); Blood Urea Nitrogen 15 mg/dL (9-16); Calcium 8.8 mg/dL (8.4-10.2); Carbon Dioxide 24 mmol/L (22-29); Chloride 106 mmol/L (96-108); Creatinine Clr Calc Pharmacy 84.7; Estimated Glomerular Filt Rate > 60; Glucose Random 196 mg/dL (60-115); Lipase 18 U/L (8-78); Potassium 3.8 mmol/L (3.3-5.1); Sodium 138 mmol/L (135-145); Total Protein 7.6 g/dL (6.5-8.0)
[2023-05-03 14:00] VITALS: PULSE 88
--- NOTE | 2023-05-03 14:11 | ED.ABDPAIN ---
HPI - Abdominal Pain General Chief Complaint: Abdominal Pain Stated Complaint: Abdominal pain Time Seen by Provider: 05/03/23 13:41 Source: patient Mode of arrival: ambulatory Limitations: language barrier (Patient's 1st language is Trinidadian, she speaks some Swedish, radio station manager used) History of Present Illness HPI narrative: 48-year-old female past medical history of diabetes, GERD, IBS, H pylori who presents emergency department for evaluation of epigastric pain x2 days. She states that the pain is been constant over the past 2 days, she does not remember if the pain came on suddenly or gradually. She states she feels bloated and she is burping up gas that smells foul. She states the pain is 8/10. She states she had similar pain in the past and was diagnosed with H pylori and was treated with antibiotics approximately 8 months prior. She is currently taking pantoprazole daily. One week prior, patient states she had an episode of room spinning suicide with nausea which lasted 24 hours and then resolved. Related Data Home Medications Medication Instructions Recorded Confirmed atorvastatin 40 mg tablet 40 mg PO DAILY 05/13/21 01/25/22 dulaglutide 3 mg/0.5 mL mg subcut QWEEK 05/13/21 subcutaneous pen injector (Trulicity) empagliflozin 25 mg tablet 25 mg PO QAM 05/13/21 01/25/22 (Jardiance) gabapentin 300 mg capsule 300 mg PO BID 05/13/21 01/25/22 insulin glargine 100 unit/mL 10 unit subcut QPM 05/13/21 subcutaneous solution (Lantus U-100 Insulin) lisinopril 2.5 mg tablet 2.5 mg PO DAILY 05/13/21 01/25/22 levonorgestrel 21 mcg/24 hours (8 vaginal DAILY 08/16/21 yrs) 52 mg intrauterine device (Mirena) Previous Rx's Medication Instructions Recorded sennosides 8.6 mg tablet (Natural 17.2 mg (2 x 8.6 mg) PO BEDTIME 02/14/22 Senna Laxative) constipation #180 tabs metronidazole 500 mg tablet 500 mg PO BID 7 days #14 tabs 06/26/22 pantoprazole 40 mg tablet,delayed 40 mg PO DAILY #90 tabs 06/27/22 release sucralfate 1 gram tablet 1 g PO BEDTIME #30 tabs 06/27/22 Allergies Allergy/AdvReac Type Severity Reaction Status Date / Time simvastatin Allergy Unknown nausea, Verified 05/03/23 08:25 vomiting and dizziness Review of Systems Review of Systems Yes all other systems are reviewed and are negative [facility] Past Medical History Medical History (Updated 05/03/23 @ 16:03 by Jaycob Zayas MD) Helicobacter pylori (H. pylori) Irritable bowel syndrome Gastroesophageal reflux disease Abnormal uterine bleeding (AUB) Heavy menses Diabetes mellitus Surgical History History of esophagogastroduodenoscopy (EGD) Hx of colonoscopy H/O LEEP Family History Family History Father Diabetes HTN (hypertension) Mother Diabetes Paternal Grandfather Diabetes Maternal Grandfather Colon cancer Social History Social History Household Members: Children Alcohol intake: never Patient Tobacco Use Status: Never used Tobacco Smoked in Last 30 Days: No Use of substances other than those prescribed or required for medical reasons: No Advance Directives: No Advance Directives Information Provided: Yes Physical Exam ED Vital Signs: Vital Signs - 24 hr 05/03/23 08:22 05/03/23 14:00 Temperature 96.0 F L Pulse Rate 103 H 88 Respiratory Rate 18 Blood Pressure 143/73 H Pulse Oximetry 99 Oxygen Delivery Method Room Air BMI result Body Mass Index 24.3 Vital signs revealed an elevated pulse of 103 otherwise unremarkable. Exam General: Awake, alert in no distress Head: Normocephalic, atraumatic EENT: PERRL, Lids normal, sclera normal, conjunctiva normal, nose normal , ears normal, throat without erythema or exudates Neck: Supple, no adenopathy, no trachea midline or C-spine tenderness Lung: breath sounds symmetric, no wheezing, rales or rhonchi Chest: symmetric movement, nontender Heart: regular rate and rhythm, normal S1, S2 no murmurs or rubs Abdomen: soft, mild epigastric tenderness, moderate right lower quadrant tenderness, normoactive bowel sounds, no rebound Back: no vertebral tenderness, no CVAT Extremities: no deformities, moves all extremities symmetrically Neuro: Awake, alert, oriented, normal speech, moves all extremities symmetrically Psych: Pleasant, cooperative Medical Decision Making Medical Decision Making [facility] Narrative: 48-year-old female past medical history of diabetes, GERD, IBS, H pylori who presents emergency department for evaluation of a of 10, con epigastric pain x2 days associated bloated sensation, burping up follows smelling gas. Patient examination revealed moderate right lower quadrant tenderness in only mild epigastric tenderness. Following evaluation was ordered: CBC, BMP, liver panel, lipase, urine test, urinalysis, CT scan of the abdomen pelvis with IV contrast Patient was treated with Toradol 15 mg IV, normal saline 1 L IV and Zofran 4 mg IV 16:01 Patient's laboratory evaluation was unremarkable. Patient did get improvement with the above treatment At the end of my shift, patient's CT scan of the abdomen pelvis with IV contrast his pending, therefore the patient's care was turned over to my colleague, Dr. Karen Roque Differential Diagnosis Differential Diagnoses: The differential diagnosis associated with the presentation includes Differential diagnosis includes was not limited to gastritis, pancreatitis, appendicitis, flare-up of IBS Admission/Observation Consideration of admission/observation: Escalation of care including admission/observation considered Lab Data [facility] Lab Attestation statement: I reviewed the patient's lab results. My interpretation patient's laboratory evaluation as follows: CBC was normal. Glucose elevated 196. AST and ALT elevated 44 and 48, lipase was normal. Urine test was negative. Urinalysis was negative. 05/03/23 08:33 05/03/23 08:33 Labs: Lab Results 05/03/23 05/03/23 Range/Units 08:33 08:35 WBC 5.8 (4.8-10.8) X10*3/uL RBC 5.22 (4.20-5.50) X10*6/uL Hgb 15.3 (12.0-16.0) g/dl Hct 46.4 (37.0-47.0) % MCV 88.9 (80.0-98.0) fL MCH 29.3 (27.0-33.0) pg MCHC 33.0 (31.0-35.0) g/dl RDW 12.9 (11.0-16.0) % Plt Count 233 (160-400) X10*3/uL MPV 11.1 (9.4-12.3) fL Immature Gran % (Auto) 0.2 (0.0-0.4) % Neut % (Auto) 78.7 H (45-73) % Lymph % (Auto) 13.0 L (20-40) % [place] % (Auto) 6.7 (2-11) % Eos % (Auto) 1.2 (0-4) % Baso % (Auto) 0.2 (0-2) % Lymph # (Auto) 0.8 L (1.2-4.9) X10*3/uL [place] # (Auto) 0.4 (0.1-1.2) X10*3/uL Eos # (Auto) 0.1 (0.0-0.4) X10*3/uL Baso # (Auto) 0.0 (0.0-0.2) X10*3/uL Abs Immat Gran (auto) 0.01 (0.00-0.03) X10*3/uL Absolute Neuts (auto) 4.6 (2.0-8.3) x10*3/uL Absolute Nucleated RBC 0.000 (0.0-0.012) X10*3/uL Nucleated RBC % (auto) 0.0 (0.0-0.2) /100WBC Sodium 138 (135-145) mmol/L Potassium 3.8 (3.3-5.1) mmol/L Chloride 106 (96-108) mmol/L Carbon Dioxide 24 (22-29) mmol/L Anion Gap 12 (12-20) BUN 15 (9-16) mg/dL Creatinine 0.73 (0.5-1.4) mg/dL Estim Creat Clear Calc 84.7 Estimated GFR > 60 Random Glucose 196 H (60-115) mg/dL Calcium 8.8 (8.4-10.2) mg/dL Total Bilirubin 0.7 (0.0-1.0) mg/dL Direct Bilirubin 0.2 (0.0-0.5) mg/dL AST 44 H (5-31) U/L ALT 48 H (0-31) U/L Alkaline Phosphatase 67 (39-117) U/L Total Protein 7.6 (6.5-8.0) g/dL Albumin 4.3 (3.5-5.0) g/dL Lipase 18 (8-78) U/L Urine Color Yellow Urine Appearance Clear Urine pH 5.5 (5.0-9.0) Ur Specific [place] >= 1.030 H (1.005-1.025) Urine Protein Negative (Neg-Trace) mg/dL Urine Glucose (UA) >=1000 H (Negative) mg/dL Urine Ketones 40 (Negative) mg/dL Urine Blood Negative (Negative) Urine Nitrite Negative (Negative) Ur Leukocyte Esterase Negative (Negative) Urine RBC 0-2 (0-2) /HPF Urine WBC 0-5 (0-5) /HPF Ur Squamous Epith Cells 3-5 (0-2) /HPF Urine Bacteria None Seen (None Seen) Hyaline Casts 0-2 (0-2) /LPF Urine Test NEGATIVE (NEGATIVE) Medications Administered Discontinued Medications Generic Name Dose Route Start Last Admin Trade Name Freq PRN Reason Stop Dose Admin Sodium Chloride 1,000 mls @ 999 mls/hr 05/03/23 14:11 05/03/23 14:27 Ns IV 05/03/23 15:11 999 mls/hr .Q1H1M STA Administration Iohexol 85 ml 05/03/23 15:40 05/03/23 15:41 Iohexol 350 Mg/Ml 100 Ml Infus..Btl IV 05/03/23 15:41 85 ml ONCE ONE Administration Ketorolac Tromethamine 15 mg 05/03/23 14:11 05/03/23 14:27 Ketorolac Tromethamine 15 Mg/Ml Vial IVPUSH 05/03/23 14:12 15 mg ONCE STA Administration Ondansetron HCl 4 mg 05/03/23 14:11 05/03/23 14:27 Ondansetron Hcl 4 Mg/2 Ml Vial IVPUSH 05/03/23 14:12 4 mg ONCE ONE Administration Discharge Plan Discharge Clinical Impression: Abdominal pain Qualifiers: Abdominal location: right lower quadrant Qualified Code(s): R10.31 - Right lower quadrant pain Patient Disposition: Still a Patient Prescriptions: No Action metronidazole 500 mg tablet 500 mg PO BID 7 Days Qty: 14 0RF Rx Instructions: Take with food, Avoid alcohol and vinegar products pantoprazole 40 mg tablet,delayed release (DR/EC) 40 mg PO DAILY Qty: 90 2RF Rx Instructions: take one tablet half an hour before breakfast sucralfate 1 gram tablet 1 g PO BEDTIME Qty: 30 4RF atorvastatin 40 mg tablet 40 mg PO DAILY lisinopril 2.5 mg tablet 2.5 mg PO DAILY gabapentin 300 mg capsule 300 mg PO BID Lantus U-100 Insulin 100 unit/mL solution 10 unit subcut QPM Trulicity 3 mg/0.5 mL pen injector subcut QWEEK Jardiance 25 mg tablet 25 mg PO QAM Mirena 20 mcg/24 hours (7 yrs) 52 mg intrauterine device vaginal DAILY sennosides [Natural Senna Laxative] 8.6 mg tablet 17.2 mg PO BEDTIME Qty: 180 3RF
[2023-05-03] MEDS: ondansetron HCL 4 MG/2 ML VIAL IVPUSH (14:27)
[2023-05-03] MEDS: 0.9 % Sodium Chloride 1,000 ML 999 ML IV (14:27)
[2023-05-03] MEDS: Ketorolac Tromethamine 15 MG/ML VIAL IVPUSH (14:27)
[2023-05-03] MEDS: iohexoL 350 MG/ML 100 ML INFUS..BTL 85 ML IV (15:41)
== END 2023-05-03 17:05 | disposition home or self-care (01) ==
PROVIDERS: Emergency Provider Emergency Medicine Emergency Medical Services; PCP Nurse Practitioner Primary Care
DX: R10.31 Right lower quadrant pain (principal); E11.9 Type 2 diabetes mellitus without complications; Z79.4 Long term (current) use of insulin; Z79.899 Other long term (current) drug therapy
CPT/HCPCS: 36415; 74177; 80048; 80076; 81001; 81025; 83690; 85025; 96374; 96375; 99284; J1885; J2405; Q9967

== ENCOUNTER 2023-09-11 09:36 | Outpatient (REF) | payer MEDICAID, SELFPAY ==
--- NOTE | ~2023-09-11 | MR_ITS ---
EXAMINATION: MR PELVIS WITHOUT AND WITH CONTRAST CLINICAL INFORMATION: Enlarged uterus, uterine leiomyoma COMPARISON: Ultrasound of pelvis on 11/18/2014, CT scan of abdomen and pelvis on 05/03/2023 EXAMINATION: MRI pelvis . INDICATION: Pelvic mass lesion. TECHNIQUE: Examination was performed in a high field strength MRI scanner. Pre-contrast multiplanar multisequence MR imaging of the pelvis was performed without IV contrast enhancement. Post-contrast axial T1 weighted fat suppressed images of the pelvis were obtained after IV injection of 7 mL Gadavist. FINDINGS: Uterus is anteflexed, with normal endometrium. However, there is abnormal thickening of the anterior and posterior junctional zones, measuring 1.7 cm in the anterior junctional zone, 1.4 cm in the posterior junctional zone. Exophytic T2 hypointense left posterior lower uterine segment mass lesion is seen measuring 2.6 cm in AP diameter, 4.0 cm in width, 2.2 cm in vertical height. Additional smaller less well defined T2 hypointense isoenhancing myometrial mass lesions are seen in the uterine fundus. No adnexal mass lesion could be identified. Urinary bladder is well filled with urine. Pelvic fat plane is clean. No pelvic ascites is seen. No abnormally enlarged iliac or inguinal lymph nodes are found. The pelvis and bilateral hips are intact. Bilateral femoral heads and necks show normal signal right anterior femoral head T2 hyperintense subcortical lesion measuring 0.9 cm in diameter No abnormal joint effusion can be seen. The visualized bony pelvis show normal signal. Bilateral sacroiliac joints also appear unremarkable. MR/MR pelvis wo/w con IMPRESSION: 1. Exophytic left posterior lower uterine segment mass lesion measuring 2.6 x 4.0 x 2.2 cm, likely representing a uterine fibroid. 2. Abnormal thickening of the anterior and posterior junctional zones, consistent with adenomyosis. 3. 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
[2023-09-11] MEDS: gadobutroL 7.5 ML VIAL IVPUSH (10:56)
== END 2023-09-11 09:37 | disposition home or self-care (01) ==
LOC: HO.MRI 09:36
PROVIDERS: PCP Nurse Practitioner Primary Care; Visit Provider Nurse Practitioner Primary Care
DX: N85.2 Hypertrophy of uterus (principal); D25.9 Leiomyoma of uterus, unspecified
CPT/HCPCS: 72197; A9585

== ENCOUNTER 2023-09-18 08:04 | Outpatient (AMB) | payer MEDICAID, SELFPAY ==
--- NOTE | 2023-09-18 08:08 | A.OFFVIS_ITS ---
Vital Signs 09/18/23 08:10 Height 5 ft 5 in Weight 146 lb BMI 24.3 BP 120/74 Intake Visit Reasons: [employer] annual exam Brick Loader Required: Yes Brick Loader Language: Baked And Graphite Inspector Name: Carissa FERRARI Information Interpreted: non-clinical & clinical Classroom Instructor: Classroom Instructor Present (Carissa FERRARI) Accompanied by: Self / Same As Patient Allergies simvastatin Allergy (Unknown, Verified 09/18/23 08:16) nausea, vomiting and dizziness Is last menstrual period known: Yes Last menstrual period: 09/11/23 HPI Comments Details: Presenting for annual exam. Complaining of heavy irregular menstrual cycles associated with passage of blood clots and pelvic cramping. Last Pap/HPV was negative in 05/17, the patient has history of LEXII 2 in 2014 status post LEEP Last Mammogram was BI-RADS 1 in 12/17 CT scan of pelvis was done emergency room in 05/19 showed the following: PELVIC VISCERA: Enlarged globular heterogeneous uterus with pedunculated fibroid measuring 3.3 x 3.5 x 3.9 cm Finding suggestive of uterine adenomyosis. Further characterization with MRI pelvis is recommended. Subserosal fibroid measures 3.3 x 3.5 x 3.9 cm MRI of pelvis was ordered and done but the report is not available Last colonoscopy was in 2021 the recommendation was to repeat in 6-12 months [facility] Medical History Helicobacter pylori (H. pylori) Irritable bowel syndrome Gastroesophageal reflux disease Abnormal uterine bleeding (AUB) Heavy menses Diabetes mellitus Surgical History History of esophagogastroduodenoscopy (EGD) Hx of colonoscopy H/O LEEP Family History Father Diabetes HTN (hypertension) Mother Diabetes Paternal Grandfather Diabetes Maternal Grandfather Colon cancer Social History Household Members: Spouse and Children Housing: House Alcohol intake: never Patient Tobacco Use Status: Never used Tobacco Current occupational status: unemployed Sexually active: Yes Sexual orientation: Straight/Heterosexual Gender identity: Female Female Reproductive History Menstrual Age of Menarche: 10 Date of last menstrual period: 09/11/23 Total pregnancies: 6 Full term: 3 Number of Living Children: 3 Ab spontaneous: 2 (one stillborn) Date of last pap smear: 05/16/21 Date of Mammogram: 12/04/22 Review of Systems Const All systems reviewed & are unremarkable except as noted in HPI and below Card Reports as per HPI Resp Reports as per HPI GI Reports as per HPI and Reports no additional complaints Reports as per HPI Physical Exam Vital Signs: BMI result Body Mass Index 24.3 Const General: cooperative, healthy appearing and comfortable Chest Chest palpation & inspection: normal inspection of the chest and normal palpation of entire chest wall Breast/axilla inspection: normal inspection of the breasts and normal inspection of the axillae Breast/axilla palpation: normal palpation of the breasts, normal palpation of the axillae and no axillary lymphadenopathy Resp Effort & Inspection: normal respiratory effort Auscultation: clear to auscultation bilaterally Percussion: percussion normal Cardio Palpation: normal PMI Rate: regular rate Rhythm: regular rhythm Heart sounds: no murmurs and no rubs Peripheral pulses: Peripheral pulses 2+ throughout GI Inspection: Yes normal to inspection Palpation (GI): Soft to palpation, nontender, no guarding, not rigid and No hepatosplenomegaly present Percussion: Yes normal to percussion Auscultation: normal bowel sounds Rectal Exam - Female: deferred General: Yes bladder normal to palpation External Female Exam: No lesion Speculum Exam - Vagina: normal appearance of the vagina, normal palpation, normal vaginal discharge and not erythematous Speculum Exam - Cervix: normal appearance of the cervix and normal palpation Bimanual exam- vagina & uterus: normal bimanual exam, normal palpation, uterine size normal, bladder normal to palpation, consistency normal and normal p alpation Bimanual Exam- Adnexa, other: normal adnexae, no masses and no tenderness Assessment & Plan Assessment & Plan (1) Well woman exam: Comment: History of LEXII 2 status post LEEP in 2014 Code(s): Z01.419 - Encounter for gynecological examination (general) (routine) without abnormal findings Category: Medical Plan: Cotesting done Instructions given the patient to schedule next screening Mammogram in 12/18. Counseled the patient about the recommended dietary allowance of 1000 mg of Calcium & 600 IU of vitamin D. The patient has a scheduled appointment with GI for repeat screening colonoscopy The patient was instructed to perform monthly self-breast exams and to schedule an annual exam in a year; All questions answered and the patient verbalized understanding. Instructed the patient to schedule annual exam in a year (2) Uterine myoma: Code(s): D25.9 - Leiomyoma of uterus, unspecified Category: Medical Plan: Discussed with the patient the results of the ultrasound and the size of the myomas. Discussed with the patient risk of myosarcoma and symptoms that are caused by myomas including but not limited to pelvic pain, pressure symptoms, abnormal uterine bleeding. In addition discussed with the patient options of treatment for myomas including: Serial ultrasounds periodically to follow-up on the size of the myoma while targeting the treatment against fibroids related symptoms ( control pills, Mirena IUD, progesterone treatment, GnRH agonist/antagonist, uterine artery embolization or endometrial ablation) versus surgical treatment including hysterectomy and or myomectomy. All pros and cons, risks and benefits of all options were discussed with the patient. The patient understands that delay in surgical treatment in case of myosarcoma can affect her prognosis, after further discussion, the patient decided to think about it and get back to us next visit (3) Abnormal uterine bleeding (AUB): Code(s): N93.9 - Abnormal uterine and vaginal bleeding, unspecified Category: Medical Plan: Co testing done, GC and chlamydia taken CBC, prolactin, FSH/LH, TSH, HCG ordered. Discussed with the patient the different causes of abnormal bleeding including thyroid disorders, uterine and ovarian pathology, endometrial hyperplasia, carcinoma and other potential causes. Discussed with the patient the work up including CBC (to r/o anemia), TSH, prolactin, FSH/LH, pelvic imaging, endometrial biopsy to r/o endometrial pathology. All questions answered and the patient verbalized understanding. Instructed the patient to schedule an appointment for an endometrial biopsy in 2 weeks. Orders: Orders HCG Quantitative Today N93.9 - Abnormal uterine and vaginal bleeding, unspecified Complete Blood Count no Diff Today N93.9 - Abnormal uterine and vaginal bleeding, unspecified TSH reflex Free T4 Today N93.9 - Abnormal uterine and vaginal bleeding, unspecified Prolactin Today N93.9 - Abnormal uterine and vaginal bleeding, unspecified MM screening mammo BI Today Z12.31 - Encounter for screening mammogram for malignant neoplasm of breast Lutenizing Hormone Today N93.9 - Abnormal uterine and vaginal bleeding, unspecified Follicle Stimulating Hormone Today N93.9 - Abnormal uterine and vaginal bleeding, unspecified
[2023-09-18 08:10] VITALS: BP 120/74; BMI 24.3
== END 2023-09-18 09:06 | disposition home or self-care (01) ==
PROVIDERS: PCP Nurse Practitioner Primary Care; Visit Provider Obstetrics & Gynecology
DX: Z01.419 Encounter for gynecological examination (general) (routine) without abnormal findings (principal); D25.9 Leiomyoma of uterus, unspecified; N93.9 Abnormal uterine and vaginal bleeding, unspecified
CPT/HCPCS: 99396

== ENCOUNTER 2023-09-18 08:04 | Outpatient (REF) | payer MEDICAID, SELFPAY ==
[2023-09-18 10:40] LABS: Hematocrit 46.1 % (37.0-47.0); Hemoglobin 15.6 g/dl (12.0-16.0); Mean Corpuscular HGB Conc 33.8 g/dl (31.0-35.0); Mean Corpuscular Hemoglobin 30.4 pg (27.0-33.0); Mean Corpuscular Volume 89.7 fL (80.0-98.0); Mean Platelet Volume 11.7 fL (9.4-12.3); Platelet Count 206 X10*3/uL (160-400); Red Blood Count 5.14 X10*6/uL (4.20-5.50); Red Cell Distribution Width 13.1 % (11.0-16.0); White Blood Count 3.8 X10*3/uL (4.8-10.8)
[2023-09-18 12:11] LABS: HCG Quantitative < 2 mIU/mL; TSH reflex Free T4 0.69 uIU/mL (0.32-4.0)
[2023-09-18 14:22] LABS: CT PCR NOT DETECTED (Not Detect.); NG PCR NOT DETECTED (Not Detect.)
[2023-09-19 10:49] LABS: Follicle Stimulating Hormone 24.4 mIU/mL; Lutenizing Hormone 11.2 mIU/mL; Prolactin 4.6 ng/mL
== END 2023-09-18 08:05 | disposition home or self-care (01) ==
LOC: HO.LAB 08:04
PROVIDERS: PCP Nurse Practitioner Primary Care; Visit Provider Obstetrics & Gynecology
DX: Z01.419 Encounter for gynecological examination (general) (routine) without abnormal findings (principal); N93.9 Abnormal uterine and vaginal bleeding, unspecified; R31.29 Other microscopic hematuria; D25.9 Leiomyoma of uterus, unspecified
CPT/HCPCS: 0353U; 83001; 83002; 84146; 84443; 84702; 85027; 87086; 87147; 87624; 88142; 99396

== ENCOUNTER 2023-09-18 08:50 | Outpatient (REF) | payer MEDICAID, SELFPAY ==
[2023-09-25 06:49] LABS: HPV mRNA E6/E7 rflx Not Detected (Not Detected)
== END 2023-09-18 08:51 | disposition home or self-care (01) ==
LOC: HO.LNP 08:50
PROVIDERS: Visit Provider Obstetrics & Gynecology
DX: Z01.419 Encounter for gynecological examination (general) (routine) without abnormal findings (principal); R31.29 Other microscopic hematuria; N93.9 Abnormal uterine and vaginal bleeding, unspecified
CPT/HCPCS: 87624; 88142

== ENCOUNTER 2023-09-19 13:37 | Outpatient (AMB) | payer MEDICAID, SELFPAY ==
[2023-09-19 13:38] VITALS: BP 138/71; PULSE 100; BMI 25.2
--- NOTE | 2023-09-19 13:38 | A.OFFVIS_ITS ---
Vital Signs 09/19/23 13:38 Height 5 ft 5 in Weight 151 lb 10.848 oz BMI 25.2 BP 138/71 Blood Pressure Location Lt brachial Position Sitting Pulse 100 Intake Visit Reasons: f/u for CIC , GERD Intake Note: Patient here for GERD. Patient c/o: abd inflammation after eating. Acid reflux pain with foods. Constipation tried duloclax (2pills) without improvement. Takes pantoprazole daily, sucralfate as needed. Combination Window Installer Required: Yes Accompanied by: Self / Same As Patient Allergies simvastatin Allergy (Unknown, Verified 09/19/23 13:44) nausea, vomiting and dizziness HPI HPI f/u for CIC , GERD: Details: LAST VISIT: Helicobacter pylori (H. pylori) History of H pylori. Current test is pending. Patient can take pantoprazole in the morning and sucralfate at bedtime. If positive will treat empirically. Will send patient also for upper endoscopy Gastroesophageal reflux disease History of H pylori. Patient continues to have epigastric burning postprandially and dyspepsia. Discussed with patient avoiding dietary triggers and late night snacking. Staying upright for minimal 3 hours after meals discussed with patient. Continue pantoprazole half an hour before breakfast and sucralfate at bedtime Irritable bowel syndrome Continue taking Senokot. Discussed with patient low FODMAP diet. List of food recommended as well as list of food to avoid given to patient. Patient had colonoscopy in January of 2022 and had suboptimal prep. We will book patient for upper endoscopy and colonoscopy. I will see patient in 2 months to discuss help to prep for the procedure and re-evaluate treatment for GERD. Patient is agreeable to this plan and verbalizes understanding of instructions. She was given the opportunity to ask questions and all questions answered. ? Thank you for allowing me to participate in her care Plan Medications Changed From pantoprazole take one tablet half an hour before breakfast 40 mg PO BID 60 tabs 2RF K21.9 To pantoprazole take one tablet half an hour before breakfast 40 mg PO DAILY 90 tabs 2RF K21.9 Refilled sucralfate 1 g PO BEDTIME 30 tabs 4RF R19.7 Discontinued docusate sodium Discontinued Reason: Patient no longer taking 100 mg PO BEDTIME 90 caps 3RF K59.00 TODAY'S VISIT Patient is here today for follow-up and to discuss going for colonoscopy and upper endoscopy. Patient had no H pylori. Takes pantoprazole in the morning and reports to have occasional postprandial epigastric pain with dyspepsia without dysphagia or odynophagia. Patient takes sucralfate on as-needed basis at bedtime. Patient is on Trulicity and Jardiance. Patient is also taking Lantus at night time. Patient denies any issues with anesthesia in the past. No history of sleep apnea. Not on any anticoagulation medication. Endoscopy and upper endoscopy was done in January 2022 and recommendation was to repeat colonoscopy in 6-12 months due to suboptimal prep PFSH Medical History Helicobacter pylori (H. pylori) Irritable bowel syndrome Gastroesophageal reflux disease Abnormal uterine bleeding (AUB) Heavy menses Diabetes mellitus Surgical History History of esophagogastroduodenoscopy (EGD) Hx of colonoscopy H/O LEEP Family History Father Diabetes HTN (hypertension) Mother Diabetes Paternal Grandfather Diabetes Maternal Grandfather Colon cancer Social History Household Members: Spouse and Children Housing: House Alcohol intake: never Patient Tobacco Use Status: Never used Tobacco Current occupational status: unemployed Sexual orientation: Straight/Heterosexual Gender identity: Female Female Reproductive History Menstrual Age of Menarche: 10 Review of Systems Const Denies weight gain and Denies weight loss ENT Reports no additional complaints, Denies dysphagia and Denies odynophagia Card Reports no additional complaints Resp Reports no additional complaints GI Reports abdominal pain (epigastric), Denies belching, Denies melena, Denies bloating, Reports constipation, Denies dysphagia, Denies excessive flatus, Reports dyspepsia, Reports heartburn, Denies diarrhea, Denies loose stools, Denies nausea, Denies odynophagia and Denies vomiting Reports no additional complaints Musc Reports no additional complaints Neuro Reports no additional complaints Psych Reports no additional complaints Endo Reports no additional complaints Physical Exam Vital Signs: Last Vital Signs Pulse 100 09/19/23 13:38 BP 138/71 09/19/23 13:38 BMI result Body Mass Index 25.2 Const General: healthy appearing, no acute distress and well developed Nutritional Appearance: well nourished Orientation/consciousness: patient oriented x3 Resp Effort & Inspection: normal respiratory effort, able to speak in complete sentences, no tracheal deviation and symmetric chest movement Auscultation: clear to auscultation bilaterally Cardio Rate: regular rate GI Inspection: Yes normal to inspection and No distended Palpation (GI): Soft to palpation, not firm, nontender and No hepatosplenomegaly present Auscultation: normal bowel sounds General: Yes no CVA tenderness Back/Spine/Pelvis Back: no CVA tenderness Skin General skin exam: elasticity normal, turgor normal and dry skin Neuro General: patient oriented x3 Psych Appearance: grossly normal Mental Status: mental status grossly normal Assessment & Plan Assessment & Plan (1) Helicobacter pylori (H. pylori): Code(s): A04.8 - Other specified bacterial intestinal infections Category: Medical (2) Gastroesophageal reflux disease: Code(s): K21.9 - Gastro-esophageal reflux disease without esophagitis Category: Medical Qualifiers: Esophagitis presence: esophagitis presence not specified Qualified Code(s): K21.9 - Gastro-esophageal reflux disease without esophagitis (3) Irritable bowel syndrome: Code(s): K58.9 - Irritable bowel syndrome without diarrhea Category: Medical Qualifiers: Irritable bowel syndrome type: with constipation Qualified Code(s): K58.1 - Irritable bowel syndrome with constipation (4) Screen for colon cancer: Code(s): Z12.11 - Encounter for screening for malignant neoplasm of colon Plan Continue pantoprazole and sucralfate at bedtime. Avoid dietary triggers and late night snacking negative for H pylori, however patient will be sent for upper endoscopy to further evaluate. She continues to have symptoms. Colonoscopy repeat due to suboptimal prep. Dulcolax tablets every evening. Patient was encouraged to increase fluid intake and activity to promote better bowel motility. Patient can take stool softener as needed. What to expect before during and after procedure discussed with patient. Discussed with her clear liquid diet and good bowel prep. I will see her after the procedure, sooner on as needed basis. Patient is agreeable to this plan and verbalizes understanding of instructions. She was given the opportunity to ask questions and all questions answered. Thank you for allowing me to participate in her care Medications: New polyethylene glycol 3350 (Miralax) As directed by gastroenterology department at [facility] 238 grams PO ONCE 238 grams 0RF Z12.11 - Encounter for screening for malignant neoplasm of colon bisacodyl (Dulcolax (bisacodyl)) 10 mg (2 x 5 mg) PO BEDTIME 180 tabs 4RF Coding Level of Care Code Est Pt Level 3 (43535) Diagnoses Helicobacter pylori (H. pylori) A04.8 Gastroesophageal reflux disease, unspecified whether esophagitis present K21.9 Esophagitis presence: esophagitis presence not specified Irritable bowel syndrome with constipation K58.1 Irritable bowel syndrome type: with constipation Screen for colon cancer Z12.11 Time Spent (min) 30 Comment 20 minutes spent with patient and additional 10 minutes spent reviewing her records
== END 2023-09-19 14:50 | disposition home or self-care (01) ==
PROVIDERS: PCP Nurse Practitioner Primary Care; Visit Provider Nurse Practitioner Family
DX: A04.8 Other specified bacterial intestinal infections (principal); K21.9 Gastro-esophageal reflux disease without esophagitis; K58.1 Irritable bowel syndrome with constipation; Z12.11 Encounter for screening for malignant neoplasm of colon
CPT/HCPCS: 99213

== ENCOUNTER → 2023-09-19 13:37 | Outpatient (BNVA) | payer MEDICAID, SELFPAY | PROVIDERS: PCP Nurse Practitioner Primary Care; Visit Provider Nurse Practitioner Family | DX: Z12.11 Encounter for screening for malignant neoplasm of colon (principal); K21.9 Gastro-esophageal reflux disease without esophagitis; K58.1 Irritable bowel syndrome with constipation; A04.8 Other specified bacterial intestinal infections | CPT/HCPCS: 99212 ==

== ENCOUNTER 2023-10-11 09:01 | Outpatient (AMB) | payer MEDICAID, SELFPAY ==
[2023-10-11 09:14] VITALS: BP 118/74; BMI 24.9
--- NOTE | 2023-10-11 09:14 | A.OFFVIS_ITS ---
Vital Signs 10/11/23 09:14 Height 5 ft 5 in Weight 149 lb 14.629 oz BMI 24.9 BP 118/74 Intake Visit Reasons: EMB/urine dip Manager Market Intelligence Required: Yes Manager Market Intelligence Language: Vascular Radiologist Name: Carissa FERRARI Information Interpreted: non-clinical & clinical Senior Marketing Manager: Senior Marketing Manager Present (Carissa FERRARI) Accompanied by: Self / Same As Patient Allergies simvastatin Allergy (Unknown, Verified 10/11/23 09:26) nausea, vomiting and dizziness Is last menstrual period known: Yes Last menstrual period: 09/18/23 HPI Comments Details: Presenting for EMB and repeat urine dip for microscopic hematuria. Urine culture grew more than 100 K GBS, the patient was treated with amoxicillin 500 mg p.o. t.i.d. for 7 days . The patient is complaining of vulvovaginal burning/itching/irritation last few days Pelvic MRI done on 09/11/2023 showed the following: IMPRESSION: 1. Exophytic left posterior lower uterine segment mass lesion measuring 2.6 x 4.0 x 2.2 cm, likely representing a uterine fibroid. 2. Abnormal thickening of the anterior and posterior junctional zones, consistent with adenomyosis. 3. 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 [facility] Medical History Helicobacter pylori (H. pylori) Irritable bowel syndrome Gastroesophageal reflux disease Abnormal uterine bleeding (AUB) Heavy menses Diabetes mellitus Surgical History History of esophagogastroduodenoscopy (EGD) Hx of colonoscopy H/O LEEP Family History Father Diabetes HTN (hypertension) Mother Diabetes Paternal Grandfather Diabetes Maternal Grandfather Colon cancer Social History Household Members: Spouse and Children Housing: House Alcohol intake: never Patient Tobacco Use Status: Never used Tobacco Current occupational status: unemployed Sexual orientation: Straight/Heterosexual Gender identity: Female Female Reproductive History Menstrual Age of Menarche: 10 Date of last menstrual period: 09/18/23 Review of Systems Const All systems reviewed & are unremarkable except as noted in HPI and below Reports as per HPI and Reports no additional complaints GI Reports no additional complaints Reports no additional complaints Physical Exam Vital Signs: BMI result Body Mass Index 24.9 Office Procedures Endometrial Biopsy Details: The patient was counseled regarding the indication and benefits of endometrial sampling to rule out endometrial pathology including not limited to endometrial hyperplasia or endometrial cancer and others; The alternatives (Either do nothing vs. hysteroscopy D&C) & the risks were discussed with the patient including but not limited: pain, uterine perforation, bleeding, infection, possible injury to bladder, bowel, ureter, possible need for blood transfusion with all its possible risks. The patient verbalized understanding all questions answered and signed consent. Urine test done in the office was negative The patient was placed into the dorsal lithotomy position; a speculum was inserted in the vagina. Using aseptic technique for the procedure, the cervix was cleansed with Betadine. The anterior lip of the cervix was grasped with a single tooth tenaculum. The uterus was sounded to 7 cm with a 4 mm Pipelle was used. Tissues samples were obtained and placed in formalin, in a patient labeled container and sent to the pathology department. At the end of the procedure, there was minimal bleeding noted The patient tolerated the procedure well and was discharged in good condition with the following instructions: Nothing in the vagina until the bleeding stops. No sex until the bleeding stops, to call if any of the following occurs: fever (>100.4), flu-like symptoms, abdominal pain, heavy bleeding, four smelling vaginal discharge. The patient was instructed to schedule a Follow up appointment in 2 weeks to discuss pathology results of the biopsy and treatment options. This note was generated with a voice recognition program. Some errors may have been overlooked during the review of this note. Sometimes these errors may affect the content or meaning of a given sentence. [id number] Biopsy Assessment & Plan Assessment & Plan (1) Abnormal uterine bleeding (AUB): Code(s): N93.9 - Abnormal uterine and vaginal bleeding, unspecified Category: Medical Plan: EMB done, see procedure note (2) Femoral abnormality: Comment: Right anterior femoral head lesion by MRI Code(s): Q74.2 - Other congenital malformations of lower limb(s), including pelvic girdle Category: Medical Plan: Discussed with the patient the finding on MRI showing a right anterior femoral head lesion, recommended to contact her PCP JENIFER for further management. A copy of the MRI report was given to the patient. All questions answered, the patient verbalized understanding and agreed with the plan (3) Microscopic hematuria: Code(s): R31.29 - Other microscopic hematuria Category: Medical Plan: Repeat urine dip showed microscopic hematuria, last CT scan was done in 05/19 will refer to Urology for further management. Instructed the patient to call our office back in case a referral appointment is not scheduled, missed or canceled so that we will assist on rescheduling another appointment, the patient verbalized understanding agreed with the plan. (4) Vulvovaginitis: Code(s): N76.0 - Acute vaginitis Category: Medical Plan: GC/CT, Bacterial Vaginosis panel taken, Terazol 0.8% q.h.s. for 3 days was sent to the patient's pharmacy. The patient was instructed to call if symptoms don't improve in 48 hours. Orders: Orders AMB Endometrial Biopsy Today N93.9 - Abnormal uterine and vaginal bleeding, unspecified Referrals Urology Referral R31.29 - Other microscopic hematuria Medications: New terconazole 0.8% 1 appful vaginal BEDTIME 3 days 20 grams 0RF Coding Level of Care Code Est Pt Level 3 (68216) Procedure Only Diagnoses Abnormal uterine bleeding (AUB) N93.9 Femoral abnormality Q74.2 Microscopic hematuria R31.29 Vulvovaginitis N76.0 CPT Codes Endometrial Biopsy - CPT: 93463-[id number] Biopsy ([id number])
== END 2023-10-11 09:38 | disposition home or self-care (01) ==
LOC: HO.HWS 09:01
PROVIDERS: PCP Nurse Practitioner Primary Care; Referring Provider Nurse Practitioner Primary Care; Visit Provider Obstetrics & Gynecology
DX: N93.9 Abnormal uterine and vaginal bleeding, unspecified (principal); Q74.2 Other congenital malformations of lower limb(s), including pelvic girdle; R31.29 Other microscopic hematuria; N76.0 Acute vaginitis
CPT/HCPCS: 58100; 99213

== ENCOUNTER 2023-10-11 09:01 | Outpatient (REF) | payer MEDICAID, SELFPAY ==
[2023-10-11 16:44] LABS: Bacterial Vaginosis PCR NEGATIVE (Negative); Candida Group PCR DETECTED (Not Detect); Candida glab krusei PCR DETECTED (Not Detect); Trichomonas vaginalis PCR NOT DETECTED (Not Detect)
[2023-10-11 17:28] LABS: CT PCR NOT DETECTED (Not Detect.); NG PCR NOT DETECTED (Not Detect.)
== END 2023-10-11 09:02 | disposition home or self-care (01) ==
LOC: HO.LNP 09:01
PROVIDERS: PCP Nurse Practitioner Primary Care; Visit Provider Obstetrics & Gynecology
DX: N93.9 Abnormal uterine and vaginal bleeding, unspecified (principal); N76.0 Acute vaginitis; Q74.2 Other congenital malformations of lower limb(s), including pelvic girdle; R31.29 Other microscopic hematuria
CPT/HCPCS: 0352U; 0353U; 58100; 81002; 88305; 99212

== ENCOUNTER → 2023-10-24 13:25 | Outpatient (RCR) | payer MEDICAID, SELFPAY | END | disposition home or self-care (01) | LOC: HO.OT 08-31 10:56 | PROVIDERS: PCP Nurse Practitioner Primary Care; Visit Provider Nurse Practitioner Primary Care | DX: M77.11 Lateral epicondylitis, right elbow (principal) | CPT/HCPCS: 97035; 97110; 97165 ==

== ENCOUNTER 2023-11-16 09:00 | Outpatient (RCR) | payer MEDICAID, SELFPAY | END 2024-09-12 08:53 | disposition home or self-care (01) | LOC: HO.PT 09:00 | PROVIDERS: PCP Nurse Practitioner Primary Care; Visit Provider Orthopaedic Surgery Orthopaedic Trauma | DX: M75.41 Impingement syndrome of right shoulder (principal); M19.011 Primary osteoarthritis, right shoulder | CPT/HCPCS: 97110; 97140; 97161; 97535 ==

== ENCOUNTER 2023-11-26 08:41 | Outpatient (AMB) | payer MEDICAID, SELFPAY ==
--- NOTE | 2023-11-26 08:41 | A.OFFVIS_ITS ---
Vital Signs 11/26/23 08:42 Height 5 ft 5 in Weight 149 lb BMI 24.8 BP 108/64 Blood Pressure Location Lt brachial Position Sitting Intake Visit Reasons: EMB Results Allergies simvastatin Allergy (Unknown, Verified 11/26/23 08:42) nausea, vomiting and dizziness HPI Comments Details: The patient is presenting for follow-up to discuss the results of her abnormal uterine bleeding workup and options of treatment. The following workup was done.: H&H= 15.6/46.1 TSH, prolactin, hCG, GC and chlamydia were negative. FSH 24.4/LH 11.2 Endometrial biopsy pathology showed the following: Mixed pattern inactive and secretory endometrium with focal pseudodecidual stromal changes; negative for atypia or hyperplasia Co testing was done was negative. Mammogram was negative. Pelvic MRI showed the following: Pelvic MRI done on 09/11/2023 showed the following: IMPRESSION: 1. Exophytic left posterior lower uterine segment mass lesion measuring 2.6 x 4.0 x 2.2 cm, likely representing a uterine fibroid. 2. Abnormal thickening of the anterior and posterior junctional zones, consistent with adenomyosis. 3. 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 Mammogram scheduled 12/10/23 [facility] Medical History Helicobacter pylori (H. pylori) Irritable bowel syndrome Gastroesophageal reflux disease Abnormal uterine bleeding (AUB) Heavy menses Diabetes mellitus Surgical History History of esophagogastroduodenoscopy (EGD) Hx of colonoscopy H/O LEEP Family History Father Diabetes HTN (hypertension) Mother Diabetes Paternal Grandfather Diabetes Maternal Grandfather Colon cancer Social History Household Members: Spouse and Children Housing: House Alcohol intake: never Patient Tobacco Use Status: Never used Tobacco Current occupational status: unemployed Sexual orientation: Straight/Heterosexual Gender identity: Female Female Reproductive History Menstrual Age of Menarche: 10 Review of Systems Const All systems reviewed & are unremarkable except as noted in HPI and below Reports as per HPI and Reports no additional complaints GI Reports no additional complaints Reports no additional complaints Physical Exam Vital Signs: Last Vital Signs BP 108/64 11/26/23 08:42 BMI result Body Mass Index 24.8 Assessment & Plan Assessment & Plan (1) Uterine myoma: Code(s): D25.9 - Leiomyoma of uterus, unspecified Category: Medical Plan: Discussed with the patient the findings on pelvic ultrasound & the risk of myosarcoma; discussed with the patient the options of treatment including expectant management versus hysterectomy; the pros and cons, risks benefits of each approach were discussed with the patient including the fact that in cases of myosarcoma, surgical treatment can lead to early diagnosis and positively affects the prognosis; after further discussion, the patient decided to proceed with expectant management. Will repeat pelvic ultrasound periodically. Instructions given to patient to call in case any of the following occurs: pressure symptoms, abnormal uterine bleeding, pelvic pain; and to schedule a six-months ultrasound (order placed) and a follow-up appointment . All questi ons answered, the patient verbalized understanding and agreed with the plan . (2) Abnormal uterine bleeding (AUB): Code(s): N93.9 - Abnormal uterine and vaginal bleeding, unspecified Category: Medical Plan: Discussed with the patient the results of the work up done and options of treatment including but not limited to BCP's, cyclic Progesterone, Mirena IUD, endometrial ablation and hysterectomy. All pros, cons, risks and benefits of each option were discussed with the patient and the patient decided to go ahead with cyclic Provera, so a more detailed discussion re: Progesterone treatment including mechanism of action, benefits (regular menses, endometrial protection form unopposed estrogen and reduction in the risk of endometrial hyperplasia and/or cancer ...), risks (Thrombosis, mood changes, weight gain, breast soreness, ? increased breast ca, others). Instructions were given to use a back- up method for contraception since this is not a method control, take the medication 1 tablet daily starting day 15-24 and to schedule a 3 months follow- up appointment; patient verbalized understanding and agreed with the plan. (3) Microscopic hematuria: Code(s): R31.29 - Other microscopic hematuria Category: Medical Plan: The patient was referred to Urology has an appointment on 12/12/2023, is aware of the appointment (4) Femoral abnormality: Comment: Right anterior femoral head lesion by MRI Code(s): Q74.2 - Other congenital malformations of lower limb(s), including pelvic girdle Category: Medical Plan: The patient has an orthopedic consultation apt on 11/27, the patient is aware. Orders: Orders US pelvic and transvaginal 6 Months N93.9 - Abnormal uterine and vaginal bleeding, unspecified Medications: New medroxyprogesterone (Provera) start Provera 1 tablet daily from day 15-24 cyclically every months, day 1 being 1st day of menses 10 mg PO DAILY 10 days 30 tabs 0RF Coding Level of Care Code Est Pt Level 3 (49057) Diagnoses Uterine myoma D25.9 Abnormal uterine bleeding (AUB) N93.9 Microscopic hematuria R31.29 Femoral abnormality Q74.2
[2023-11-26 08:42] VITALS: BP 108/64; BMI 24.8
== END 2023-11-26 09:36 | disposition home or self-care (01) ==
PROVIDERS: PCP Nurse Practitioner Primary Care; Visit Provider Obstetrics & Gynecology
DX: D25.9 Leiomyoma of uterus, unspecified (principal); N93.9 Abnormal uterine and vaginal bleeding, unspecified; R31.29 Other microscopic hematuria; Q74.2 Other congenital malformations of lower limb(s), including pelvic girdle
CPT/HCPCS: 99213

== ENCOUNTER → 2023-11-26 08:41 | Outpatient (BNVA) | payer MEDICAID, SELFPAY | PROVIDERS: PCP Nurse Practitioner Primary Care; Visit Provider Obstetrics & Gynecology | DX: D25.9 Leiomyoma of uterus, unspecified (principal); N93.9 Abnormal uterine and vaginal bleeding, unspecified; R31.29 Other microscopic hematuria; Q74.2 Other congenital malformations of lower limb(s), including pelvic girdle | CPT/HCPCS: 99212 ==

== ENCOUNTER 2023-12-12 12:44 | Outpatient (AMB) | payer MEDICAID, SELFPAY ==
--- NOTE | 2023-12-12 12:59 | A.OFFVIS_ITS ---
Intake Visit Reasons: Microscopic hematuria Intake Note: Patient is present for micoscopic hematuria Urology Medication:none Antibiotic Allergy:none Blood Thinner:none Parimutuel Ticket Checker Required: Yes Parimutuel Ticket Checker Name: Rosio-#[id number] Information Interpreted: non-clinical & clinical Allergies simvastatin Allergy (Unknown, Verified 12/12/23 13:00) nausea, vomiting and dizziness Medication List - Last Reconciled 12/12/23 by Jose A Baptiste MD atorvastatin 40 mg PO DAILY bisacodyl (Dulcolax (bisacodyl)) 10 mg (2 x 5 mg) PO BEDTIME empagliflozin (Jardiance) 25 mg PO QAM insulin glargine (Lantus U-100 Insulin) 10 units subcut QPM lisinopril 2.5 mg PO DAILY medroxyprogesterone (Provera) 10 mg PO DAILY 10 days pantoprazole 40 mg PO DAILY polyethylene glycol 3350 (Miralax) 238 grams PO ONCE sennosides (Natural Senna Laxative) 17.2 mg (2 x 8.6 mg) PO BEDTIME solifenacin (Vesicare) 10 mg PO DAILY HPI Comments Details: Radha is a 48-year-old female who is here as a new patient evaluation for microscopic hematuria. Radha was referred by Gynecology. The patient complains of urinary frequency and urgency. She has urinary leakage associated with coughing. She wears a pad daily. The patient complains of left-sided back pain. And is concerned about her kidneys. In review of her chart she had a CT abdomen and pelvis in 05/16/2023 kidneys were normal. I will check a renal ultrasound and discussed follow-up office cystoscopy. Urine will be sent for cytology. I will trial VESIcare 10 mg daily. [facility] Medical History Helicobacter pylori (H. pylori) Irritable bowel syndrome Gastroesophageal reflux disease Abnormal uterine bleeding (AUB) Heavy menses Diabetes mellitus Surgical History History of esophagogastroduodenoscopy (EGD) Hx of colonoscopy H/O LEEP Family History Father Diabetes HTN (hypertension) Mother Diabetes Paternal Grandfather Diabetes Maternal Grandfather Colon cancer Social History Household Members: Spouse and Children Housing: House Alcohol intake: never Patient Tobacco Use Status: Never used Tobacco Current occupational status: unemployed Sexual orientation: Straight/Heterosexual Gender identity: Female Female Reproductive History Menstrual Age of Menarche: 10 Review of Systems Const All systems reviewed & are unremarkable except as noted in HPI and below Reports no additional complaints Eyes Reports no additional complaints ENT Reports no additional complaints Card Reports no additional complaints Resp Reports no additional complaints GI Reports no additional complaints Reports as per HPI Musc Reports no additional complaints Skin/Breast Reports system reviewed and no additional complaints, except as documented Neuro Reports no additional complaints Psych Reports no additional complaints Endo Reports no additional complaints Edu/Lymph Reports no additional complaints Aller/Immun Reports no additional complaints Physical Exam Const General: cooperative, healthy appearing and no acute distress Orientation/consciousness: patient oriented x3 HEENT Head: Yes normal to inspection, Yes normocephalic and Yes atraumatic Eyes Conjunctivae: conjunctivae normal Neck Neck: Yes normal visual inspection and Yes trachea midline Chest Chest palpation & inspection: normal inspection of the chest Resp Effort & Inspection: normal respiratory effort Cardio Rate: regular rate GI Inspection: Yes normal to inspection Palpation (GI): Soft to palpation Skin General skin exam: no rashes or lesions noted Neuro General: patient oriented x3 Extrem General: No edema Psych Appearance: grossly normal Results AMB Urinalysis, Automated UA Leukoctes 0 [place]/uL Last Edit by LELAND North on 12/12/23 13:14 UA Nitrite Negative Last Edit by LELAND North on 12/12/23 13:14 UA Urobilinogen 0.2 mg/dL Last Edit by LELAND North on 12/12/23 13:1 4 UA Protein 0 mg/dL Last Edit by LELAND North on 12/12/23 13:14 UA pH 5.5 Last Edit by LELAND North on 12/12/23 13:14 UA Blood 0 [place]/uL Last Edit by LELAND North on 12/12/23 13:14 UA Specific [place] 1.020 Last Edit by LELAND North on 12/12/23 13: 14 UA Ketone Positive Last Edit by LELAND North on 12/12/23 13:14 UA Bilirubin 0 mg/dL Last Edit by LELAND North on 12/12/23 13:14 UA Glucose 1000 mg/dL Last Edit by LELAND North on 12/12/23 13:14 Results Reviewed Results Reviewed: Laboratory Last Values Urine pH (Auto) 5.5 12/12/23 13:13 Specific [place] (Auto) 1.020 12/12/23 13:13 Urine Protein (Auto) 0 mg/dL 12/12/23 13:13 Glucose (UA)(Auto) 1000 mg/dL 12/12/23 13:13 Urine Ketones (Auto) Positive 12/12/23 13:13 Urine Blood (Auto) 0 [place]/uL 12/12/23 13:13 Urine Nitrite (Auto) Negative 12/12/23 13:13 Urine Bilirubin (Auto) 0 mg/dL 12/12/23 13:13 Urine Urobilinogen (Auto) 0.2 mg/dL 12/12/23 13:13 Leukocyte Esterase (Auto) 0 [place]/uL 12/12/23 13:13 Date of Service: 05/03/23 CT ABDOMEN AND PELVIS WITH CONTRAST CLINICAL INFORMATION: Right lower quadrant pain. COMPARISON: 03/19/2021 TECHNIQUE: Multidetector volumetric images were obtained from the superior aspect of the liver through the pubic symphysis following administration 85 mL of Omnipaque 350 intravenous contrast. Sagittal and coronal reformatted images were obtained on the technologist's workstation. Oral contrast: No This CT examination was performed using dose optimization techniques as appropriate, variously including the following: *Automated exposure control *Adjustment of mA and/or kV according to patient size (this includes techniques or standardized protocols for targeted exams where dose is matched to indication/reason for exam; i.e. extremities or head) *Use of iterative reconstruction technique DLP: 470 mGy-cm FINDINGS: LUNG BASES: The visualized lung bases are unremarkable. LIVER, GALLBLADDER, AND BILIARY TREE: The liver is decreased in attenuation. No focal hepatic lesion or biliary ductal dilatation is present. The gallbladder is unremarkable with no evidence of radiopaque gallstones, gallbladder wall thickening, or obvious pericholecystic inflammatory changes. PANCREAS: Unremarkable. SPLEEN: Unremarkable. ADRENAL GLANDS: Unremarkable. KIDNEYS AND URETERS: The kidneys are normal in size, shape, and attenuation. No hydronephrosis, hydroureter, or calculi seen. No perinephric stranding. BLADDER: Unremarkable. GASTROINTESTINAL TRACT: The small and large bowel are unremarkable. The appendix is unremarkable. ABDOMINAL WALL: No significant hernia is appreciated. LYMPH NODES: No bulky lymphadenopathy. VASCULAR: Normal caliber abdominal aorta. PELVIC VISCERA: Enlarged globular heterogeneous uterus with pedunculated fibroid measuring 3.3 x 3.5 x 3.9 cm. OSSEOUS STRUCTURES: No destructive bone lesions. IMPRESSION: Finding suggestive of uterine adenomyosis. Further characterization with MRI pelvis is recommended. Subserosal fibroid measures 3.3 x 3.5 x 3.9 cm. Hepatic steatosis. Assessment & Plan Assessment & Plan (1) Microscopic hematuria: Code(s): R31.29 - Other microscopic hematuria Category: Medical (2) Urinary frequency: Code(s): R35.0 - Frequency of micturition Category: Medical (3) YA (stress urinary incontinence, female): Code(s): N39.3 - Stress incontinence (female) (male) Category: Medical Plan Microscopic hematuria. Urine for cytology, renal ultrasound, follow-up office cystoscopy Urinary frequency. Trial of VESIcare 10 mg daily. Orders: Orders US renal BI Today R31.29 - Other microscopic hematuria AMB Urinalysis Automated Today Z13.9 - Encounter for screening, unspecified Medications: New solifenacin (Vesicare) 10 mg PO DAILY 30 tabs 3RF urinary frequency Patient Instructions: The patient had an opportunity to ask questions regarding treatment plan. The patient expressed understanding and agreement with the above treatment plan. The patient is aware they should contact our office by phone for worsening of their current condition or the appearance of new symptoms. Compliance is encouraged with any medications and followup testing that is ordered. It is a privilege to be allowed the opportunity to participate in the urologic care of your patient. If you have any questions or concerns regarding treatment for the above conditions please do not hesitate to contact me. The office telephone contact is [phone]. This note is constructed in part using voice recognition software. While every effort has been made to ensure accuracy higher level teaching assistant errors may have been included. Yours sincerely, Jose A Baptiste MD Coding Level of Care Code New Pt Level 4 (42325) Diagnoses Microscopic hematuria R31.29 Urinary frequency R35.0 YA (stress urinary incontinence, female) N39.3
== END 2023-12-12 13:48 | disposition home or self-care (01) ==
PROVIDERS: PCP Nurse Practitioner Primary Care; Visit Provider Urology
DX: R31.29 Other microscopic hematuria (principal); R35.0 Frequency of micturition; N39.3 Stress incontinence (female) (male); Z13.9 Encounter for screening, unspecified
CPT/HCPCS: 99204

== ENCOUNTER 2023-12-12 12:44 | Outpatient (REF) | payer MEDICAID, SELFPAY ==
[2023-12-12 16:54] LABS: Urine Cytology See Pathology rpt
== END 2023-12-12 12:45 | disposition home or self-care (01) ==
LOC: CF 12:44
PROVIDERS: PCP Nurse Practitioner Primary Care; Visit Provider Urology
DX: R31.29 Other microscopic hematuria (principal); R35.0 Frequency of micturition; N39.0 Urinary tract infection, site not specified; N39.3 Stress incontinence (female) (male)
CPT/HCPCS: 81003; 88112; 99202

== ENCOUNTER 2023-12-14 11:32 | Outpatient (REF) | payer MEDICAID, SELFPAY | END 2023-12-14 11:33 | disposition home or self-care (01) | LOC: HO.MAMMO 11:32 | PROVIDERS: PCP Nurse Practitioner Primary Care; Visit Provider Obstetrics & Gynecology | DX: Z12.31 Encounter for screening mammogram for malignant neoplasm of breast (principal) | CPT/HCPCS: 77063; 77067 ==

== ENCOUNTER → 2023-12-14 11:45 | Outpatient (BNV) | payer MEDICAID, SELFPAY | PROVIDERS: PCP Nurse Practitioner Primary Care; Visit Provider Radiology Diagnostic Radiology | DX: Z12.31 Encounter for screening mammogram for malignant neoplasm of breast (principal) | CPT/HCPCS: 77063; 77067 ==

== ENCOUNTER 2024-01-11 09:37 | Outpatient (REF) | payer MEDICAID, SELFPAY ==
--- NOTE | ~2024-01-11 | US_ITS ---
EXAMINATION: US KIDNEYS BILATERAL CLINICAL INFORMATION: Other microscopic hematuria. COMPARISON: CT abdomen and pelvis 05/03/2023. CT abdomen and pelvis 03/19/2021. TECHNIQUE: Real-time imaging of the kidneys FINDINGS: RIGHT KIDNEY: 12.8 x 6.0 x 6.3 cm (SAG x AP x TRV). The kidney is normal in size, contour, and echogenicity. Renal cortical thickness is normal. No focal parenchymal lesions or hydronephrosis. Possible 2 mm nonobstructing calculus versus vascular calcification in the lower pole. LEFT KIDNEY: 13.8 x 6.0 x 4.3 cm (SAG x AP x TRV). The kidney is normal in size, contour, and echogenicity. Renal cortical thickness is normal. No focal parenchymal lesions or hydronephrosis. 0.9 cm simple cyst in the mid kidney. No imaging follow-up is recommended. There are 3 nonobstructing calculi seen in the upper, mid, and lower kidney ranging 2-4 mm in size. US/US renal BI IMPRESSION: Small nonobstructing calculi in the left kidney and possible small nonobstructing calculus versus vascular calcification in the right kidney. No hydronephrosis. Electronically signed by: Morris Garcia MD 01/30/2024 10:33 AM EDT
== END 2024-01-11 09:38 | disposition home or self-care (01) ==
LOC: HO.US 09:37
PROVIDERS: PCP Nurse Practitioner Primary Care; Visit Provider Urology
DX: R31.29 Other microscopic hematuria (principal)
CPT/HCPCS: 76775

== ENCOUNTER 2024-01-23 13:12 | Outpatient (AMB) | payer MEDICAID, SELFPAY ==
--- NOTE | 2024-01-23 13:32 | A.OFFVIS_ITS ---
Intake Visit Reasons: cysto/US(US 01/10) Intake Note: Patient is present for Cystoscopy Urology Medication:vesicare Antibiotic Allergy:simvastatin Blood Thinner:none Lot:[id number] 07/12/2026Exp: Parts Product Analyst Required: No Allergies simvastatin Allergy (Unknown, Verified 01/23/24 13:34) nausea, vomiting and dizziness Medication List - Last Reconciled 01/23/24 by Jose A Baptiste MD atorvastatin 40 mg PO DAILY bisacodyl (Dulcolax (bisacodyl)) 10 mg (2 x 5 mg) PO BEDTIME empagliflozin (Jardiance) 25 mg PO QAM insulin glargine (Lantus U-100 Insulin) 10 units subcut QPM lisinopril 2.5 mg PO DAILY medroxyprogesterone (Provera) 10 mg PO DAILY 10 days pantoprazole 40 mg PO DAILY polyethylene glycol 3350 (Miralax) 238 grams PO ONCE sennosides (Natural Senna Laxative) 17.2 mg (2 x 8.6 mg) PO BEDTIME solifenacin (Vesicare) 10 mg PO DAILY HPI Comments Details: 01/23/24--Here for cysto. Ultrasound results reviewed with the patient. Renal ultrasound 01/11/2024--images reviewed left kidney small cyst, small kidney stones left lower pole 3 mm upper pole 4 mm. The patient states she has i mprovement in urinary symptoms on the VESIcare. She states she has been taking VESIcare 10 mg every other day. Cystoscopy findings: No suspicious bladder lesions. Kidney stones are small we will continue to monitor. Follow-up in 6 months. Review of chart: 12/12/23--Radha is a 48-year-old female who is here as a new patient evaluation for microscopic hematuria. Radha was referred by Gynecology. The patient complains of urinary frequency and urgency. She has urinary leakage associated with coughing. She wears a pad daily. The patient complains of left-sided back pain. And 0 8 it is not is concerned about her kidneys. In review of her chart she had a CT abdomen and pelvis in 05/16/2023 kidneys were normal. I will check a renal ultrasound and discussed follow-up office cystos copy. Urine will be sent for cytology. I will trial VESIcare 10 mg daily. [facility] Medical History Helicobacter pylori (H. pylori) Irritable bowel syndrome Gastroesophageal reflux disease Abnormal uterine bleeding (AUB) Heavy menses Diabetes mellitus Surgical History History of esophagogastroduodenoscopy (EGD) Hx of colonoscopy H/O LEEP Family History Father Diabetes HTN (hypertension) Mother Diabetes Paternal Grandfather Diabetes Maternal Grandfather Colon cancer Social History Household Members: Spouse and Children Housing: House Alcohol intake: never Patient Tobacco Use Status: Never used Tobacco Current occupational status: unemployed Sexual orientation: Straight/Heterosexual Gender identity: Female Female Reproductive History Menstrual Age of Menarche: 10 Review of Systems Const All systems reviewed & are unremarkable except as noted in HPI and below Reports no additional complaints Eyes Reports no additional complaints ENT Reports no additional complaints Card Reports no additional complaints Resp Reports no additional complaints GI Reports no additional complaints Reports as per HPI Musc Reports no additional complaints Skin/Breast Reports system reviewed and no additional complaints, except as documented Neuro Reports no additional complaints Psych Reports no additional complaints Endo Reports no additional complaints Edu/Lymph Reports no additional complaints Aller/Immun Reports no additional complaints Office Procedures Cystoscopy Consent Discussed risk and benefit or proposed procedure with the patient. Information consent for procedure given to the patient. Discussed technical aspects, risks, benefits and alternatives in full. Addressed all of the patient's questions and concerns regarding the procedure. The patient demonstrated knowledge and understanding. They wish to proceed with this procedure. Preparation The patient was prepped in the usual manner. A senior ui developer was present and in the room. Genitalia was prepped with betadine solution in a sterile manner. Lidocaine Jelly 2% was placed into the urethra and 16Fr flexible Olympus cystoscope was inserted into the meatus after adequate lubrication. Procedure Time out per protocol performed. Bladder Inspection Bladder Inspection: The bladder was inspected in its entirety with utilization retroflexion displaying: Tumor(s): no suspicious bladder lesions visualized Trabeculation: NA Mucosal Erthema: NA Orifices: normal shape and position Urethra: normal Cystoscopy findings: WNL, no suspicious bladder lesions visualized [id number] DISPOSABLE SCOPE URO-G FLEXIBLE SCOPE Procedure code (CPT) selection complete Office Meds lidocaine HCl 2 % mucosal jelly in applicator Performing Provider: Jose A Baptiste MD [place] [facility] [facility] Administered by: Shalom Hugo LPN on 01/23/24 13:51 Dose Route Admin Location Dispensed Lot Number Expiration Date ND Rackman 10 mL intra-urethral 10 mL naproxen 500 mg tablet Performing Provider: Jose A Baptiste MD [place] [facility] [place] [facility] Administered by: Shalom Hugo LPN on 01/23/24 13:51 Dose Route Admin Location Dispensed Lot Number Expiration Date NDC Rackman 500 mg PO 1 tab ciprofloxacin HCl 500 mg tablet Performing Provider: Jose A Baptiste MD [place] [facility] [place] [facility] Administered by: Shalom Hugo LPN on 01/23/24 13:51 Dose Route Admin Location Dispensed Lot Number Expiration Date NDC Rackman 500 mg PO 1 tab Results AMB Urinalysis, Automated UA Leukoctes 0 [place]/uL Last Edit by LELAND North on 01/23/24 13:45 UA Nitrite Negative Last Edit by LELAND North on 01/23/24 13:45 UA Urobilinogen 0.2 mg/dL Last Edit by LELAND North on 01/23/24 13:4 5 UA Protein 0 mg/dL Last Edit by LELAND North on 01/23/24 13:45 UA pH 5.0 Last Edit by LELAND North on 01/23/24 13:45 UA Blood 0 [place]/uL Last Edit by LELAND North on 01/23/24 13:45 UA Specific [place] 1.015 Last Edit by LELAND North on 01/23/24 13: 45 UA Ketone Negative Last Edit by LELAND North on 01/23/24 13:45 UA Bilirubin 0 mg/dL Last Edit by LELAND North on 01/23/24 13:45 UA Glucose 1000 mg/dL Last Edit by LELAND North on 01/23/24 13:45 Results Reviewed Results Reviewed: Laboratory Last Values Urine pH (Auto) 5.0 01/23/24 13:45 Specific [place] (Auto) 1.015 01/23/24 13:45 Urine Protein (Auto) 0 mg/dL 01/23/24 13:45 Glucose (UA)(Auto) 1000 mg/dL 01/23/24 13:45 Urine Ketones (Auto) Negative 01/23/24 13:45 Urine Blood (Auto) 0 [place]/uL 01/23/24 13:45 Urine Nitrite (Auto) Negative 01/23/24 13:45 Urine Bilirubin (Auto) 0 mg/dL 01/23/24 13:45 Urine Urobilinogen (Auto) 0.2 mg/dL 01/23/24 13:45 Leukocyte Esterase (Auto) 0 [place]/uL 01/23/24 13:45 Renal ultrasound 01/11/2024--images reviewed left kidney small cyst, small kidney stones left lower pole 3 mm upper pole 4 mm Date of Service: 05/03/23 CT ABDOMEN AND PELVIS WITH CONTRAST CLINICAL INFORMATION: Right lower quadrant pain. COMPARISON: 03/19/2021 TECHNIQUE: Multidetector volumetric images were obtained from the superior aspect of the liver through the pubic symphysis following administration 85 mL of Omnipaque 350 intravenous contrast. Sagittal and coronal reformatted images were obtained on the technologist's workstation. Oral contrast: No This CT examination was performed using dose optimization techniques as appropriate, variously including the following: *Automated exposure control *Adjustment of mA and/or kV according to patient size (this includes techniques or standardized protocols for targeted exams where dose is matched to indication/reason for exam; i.e. extremities or head) *Use of iterative reconstruction technique DLP: 470 mGy-cm FINDINGS: LUNG BASES: The visualized lung bases are unremarkable. LIVER, GALLBLADDER, AND BILIARY TREE: The liver is decreased in attenuation. No focal hepatic lesion or biliary ductal dilatation is present. The gallbladder is unremarkable with no evidence of radiopaque gallstones, gallbladder wall thickening, or obvious pericholecystic inflammatory changes. PANCREAS: Unremarkable. SPLEEN: Unremarkable. ADRENAL GLANDS: Unremarkable. KIDNEYS AND URETERS: The kidneys are normal in size, shape, and attenuation. No hydronephrosis, hydroureter, or calculi seen. No perinephric stranding. BLADDER: Unremarkable. GASTROINTESTINAL TRACT: The small and large bowel are unremarkable. The appendix is unremarkable. ABDOMINAL WALL: No significant hernia is appreciated. LYMPH NODES: No bulky lymphadenopathy. VASCULAR: Normal caliber abdominal aorta. PELVIC VISCERA: Enlarged globular heterogeneous uterus with pedunculated fibroid measuring 3.3 x 3.5 x 3.9 cm. OSSEOUS STRUCTURES: No destructive bone lesions. IMPRESSION: Finding suggestive of uterine adenomyosis. Further characterization with MRI pelvis is recommended. Subserosal fibroid measures 3.3 x 3.5 x 3.9 cm. Hepatic steatosis. Assessment & Plan Assessment & Plan (1) Microscopic hematuria: Code(s): R31.29 - Other microscopic hematuria Category: Medical (2) Urinary frequency: Code(s): R35.0 - Frequency of micturition Category: Medical (3) YA (stress urinary incontinence, female): Code(s): N39.3 - Stress incontinence (female) (male) Category: Medical (4) Kidney stone on left side: Code(s): N20.0 - Calculus of kidney Category: Medical Plan The patient states she has improvement in urinary symptoms on the VESIcare. She states she has been taking VESIcare 10 mg every other day. Cystoscopy findings: No suspicious bladder lesions. Kidney stones are small we will continue to monitor. Follow-up in 6 months. Orders: Orders AMB Urinalysis Automated Today Z13.9 - Encounter for screening, unspecified AMB Cystoscopy Today N39.0 - Urinary tract infection, site not specified, N39.3 - Stress incontinence (female) (male), R31.29 - Other microscopic hematuria, R35.0 - Frequency of micturition US renal BI 6 Months N20.0 - Calculus of kidney Patient Instructions: The patient had an opportunity to ask questions regarding treatment plan. The patient expressed understanding and agreement with the above treatment plan. The patient is aware they should contact our office by phone for worsening of their current condition or the appearance of new symptoms. Compliance is encouraged with any medications and followup testing that is ordered. It is a privilege to be allowed the opportunity to participate in the urologic care of your patient. If you have any questions or concerns regarding treatment for the above conditions please do not hesitate to contact me. The office telephone contact is [phone]. This note is constructed in part using voice recognition software. While every effort has been made to ensure accuracy athletic training internship errors may have been included. Yours sincerely, Jose A Baptiste MD Coding Level of Care Code Est Pt Level 3 (34036) Diagnoses Microscopic hematuria R31.29 Urinary frequency R35.0 YA (stress urinary incontinence, female) N39.3 Kidney stone on left side N20.0 CPT Codes Cystoscopy - CPT: [id number] ([id number])
== END 2024-01-23 14:21 | disposition home or self-care (01) ==
PROVIDERS: PCP Nurse Practitioner Primary Care; Visit Provider Urology
DX: N39.3 Stress incontinence (female) (male) (principal); R35.0 Frequency of micturition; R31.29 Other microscopic hematuria; N39.0 Urinary tract infection, site not specified; N20.0 Calculus of kidney; Z13.9 Encounter for screening, unspecified
CPT/HCPCS: 52000

== ENCOUNTER → 2024-01-23 13:12 | Outpatient (BNVA) | payer MEDICAID, SELFPAY | PROVIDERS: PCP Nurse Practitioner Primary Care; Visit Provider Urology | DX: R31.29 Other microscopic hematuria (principal); R35.0 Frequency of micturition; N39.3 Stress incontinence (female) (male); N20.0 Calculus of kidney; Z79.899 Other long term (current) drug therapy | CPT/HCPCS: 52000; 81003 ==

== ENCOUNTER 2024-01-30 08:29 | Outpatient (REF) | payer MEDICAID, SELFPAY ==
[2024-01-30 11:48] LABS: Cholesterol 215 mg/dL (<200); HDL Cholesterol 52 mg/dL (>40); LDL Cholesterol Calculated 140 mg/dL (<100); Triglycerides 118 mg/dL (<150)
[2024-01-30 12:16] LABS: HIV AB/AG Nonreactive (Nonreactive); HIV Num 1 0.05 S/CO (0.00-0.99); ~HepC Num1 0.09 S/CO (0.00-0.79); ~Hepatitis C Antibody Nonreactive (Nonreactive)
[2024-01-31 19:03] LABS: Rubella IgG Antibody 1.42 Index
[2024-02-01 09:48] LABS: RPR Rapid Plasma Reagin NON-REACTIVE (NON-REACTIVE)
== END 2024-01-30 08:30 | disposition home or self-care (01) ==
LOC: HO.HHCL 08:29
PROVIDERS: Visit Provider Nurse Practitioner Primary Care
DX: Z00.00 Encounter for general adult medical examination without abnormal findings (principal); E11.69 Type 2 diabetes mellitus with other specified complication; E78.5 Hyperlipidemia, unspecified; Z11.3 Encounter for screening for infections with a predominantly sexual mode of transmission
CPT/HCPCS: 36415; 80061; 86592; 86735; 86762; 86765; 86803; 87389

== ENCOUNTER 2024-02-26 08:58 | Outpatient (AMB) | payer MEDICAID, SELFPAY ==
--- NOTE | 2024-02-26 08:59 | A.OFFVIS_ITS ---
Vital Signs 02/26/24 09:03 Height 5 ft 5 in Weight 147 lb 11.355 oz BMI 24.6 BP 98/60 Intake Visit Reasons: 3 month med follow up Technical Applications Scientist Required: Yes Technical Applications Scientist Language: Chute Greaser Services: Technical Applications Scientist Present (in person) Technical Applications Scientist Name: Carissa FERRARI Information Interpreted: non-clinical & clinical Accompanied by: Self / Same As Patient Allergies simvastatin Allergy (Unknown, Verified 02/26/24 09:06) nausea, vomiting and dizziness HPI Comments Details: Presenting for follow-up, on Provera 10 mg p.o. q.d. day 15-24 cyclicly, periods are regular light. No complaints mammogram was BI-RADS 1 in 12/18 [facility] Medical History Helicobacter pylori (H. pylori) Irritable bowel syndrome Gastroesophageal reflux disease Abnormal uterine bleeding (AUB) Heavy menses Diabetes mellitus Surgical History History of esophagogastroduodenoscopy (EGD) Hx of colonoscopy H/O LEEP Family History Father Diabetes HTN (hypertension) Mother Diabetes Paternal Grandfather Diabetes Maternal Grandfather Colon cancer Social History Household Members: Spouse and Children Housing: House Alcohol intake: never Patient Tobacco Use Status: Never used Tobacco Current occupational status: unemployed Sexual orientation: Straight/Heterosexual Gender identity: Female Female Reproductive History Menstrual Age of Menarche: 10 Review of Systems Const All systems reviewed & are unremarkable except as noted in HPI and below Reports as per HPI and Reports no additional complaints GI Reports no additional complaints Reports no additional complaints Assessment & Plan Assessment & Plan (1) Abnormal uterine bleeding (AUB): Code(s): N93.9 - Abnormal uterine and vaginal bleeding, unspecified Category: Medical Plan: Provera 10 mg p.o. q.d. day 1524 refilled. Instructions given the patient to call in case of recurrence of irregular menstrual cycles. All questions answered, the patient verbalized understanding Medications: Refilled medroxyprogesterone (Provera) start Provera 1 tablet daily from day 15-24 cyclically every months, day 1 being 1st day of menses 10 mg PO DAILY 10 days 30 tabs 3RF Coding Level of Care Code Est Pt Level 3 (19774) Diagnoses Abnormal uterine bleeding (AUB) N93.9
[2024-02-26 09:03] VITALS: BP 98/60; BMI 24.6
== END 2024-02-26 09:08 | disposition home or self-care (01) ==
PROVIDERS: PCP Nurse Practitioner Primary Care; Visit Provider Obstetrics & Gynecology
DX: N93.9 Abnormal uterine and vaginal bleeding, unspecified (principal)
CPT/HCPCS: 99213

== ENCOUNTER → 2024-02-26 08:58 | Outpatient (BNVA) | payer MEDICAID, SELFPAY | PROVIDERS: PCP Nurse Practitioner Primary Care; Visit Provider Obstetrics & Gynecology | DX: N93.9 Abnormal uterine and vaginal bleeding, unspecified (principal); Z79.899 Other long term (current) drug therapy | CPT/HCPCS: 99212 ==

== ENCOUNTER 2024-06-17 06:10 | Day surgery (SDC) | payer MEDICAID, SELFPAY ==
[2024-02-04 14:43] VITALS: BMI 25.3
--- NOTE | 2024-02-05 09:33 | HO.ANESPROP2 ---
HPI - Anesthesia Eval Consult details Narrative: 48yo F for Upper Endoscopy and Colonoscopy Anesthesia Pre-Procedure Meds Is the patient on any of the following meds?: GLP1/DPP4 and SGLT2 Inhib PMFSH Active Problems Active Problems: All Active Problems Kidney stone on left side (Acute) YA (stress urinary incontinence, female) (Acute) Urinary frequency (Acute) Vulvovaginitis (Acute) Microscopic hematuria (Acute) Femoral abnormality (Acute) UTI (urinary tract infection) (Acute) Uterine myoma (Acute) Well woman exam (Acute) Irritable bowel syndrome (Acute) Gastroesophageal reflux disease (Acute) Helicobacter pylori (H. pylori) (Acute) Complex ovarian cyst (Acute) Abnormal uterine bleeding (AUB) (Acute) Heavy menses (Acute) Past Medical History Medical History Helicobacter pylori (H. pylori) Irritable bowel syndrome Gastroesophageal reflux disease Abnormal uterine bleeding (AUB) Heavy menses Diabetes mellitus Family History Family History Father Diabetes HTN (hypertension) Mother Diabetes Paternal Grandfather Diabetes Maternal Grandfather Colon cancer Family history of problems with anesthesia: No Surgical History Surgical History History of esophagogastroduodenoscopy (EGD) Hx of colonoscopy H/O LEEP History of Problems with Anesthesia: No Social History Social History Household Members: Spouse and Children Housing: House Alcohol intake: never Patient Tobacco Use Status: Never used Tobacco Current occupational status: unemployed Sexual orientation: Straight/Heterosexual Gender identity: Female Meds Allergies Allergy/AdvReac Type Severity Reaction Status Date / Time simvastatin Allergy Unknown nausea, Verified 01/23/24 13:34 vomiting and dizziness Home Medications ?Medication ?Instructions ?Recorded ?Confirmed ?Last Taken ?Type atorvastatin 40 mg tablet 40 mg PO DAILY 05/13/21 02/04/24 Unknown History empagliflozin 25 mg tablet 25 mg PO QAM 05/13/21 02/04/24 Unknown History (Jardiance) insulin glargine 100 unit/mL 20 unit subcut QPM 05/13/21 02/04/24 Unknown History subcutaneous solution (Lantus U-100 Insulin) lisinopril 2.5 mg tablet 2.5 mg PO DAILY 05/13/21 02/04/24 Unknown History dulaglutide 4.5 mg/0.5 mL 4.5 mg subcut QWEEK 02/04/24 02/04/24 Unknown History subcutaneous pen injector (Trulicity) Exam Height,Weight and Vital Signs: Height 5 ft 5 in Weight 68.946 kg Assessment and Plan Assessment Anesthesia Assessment: Chart Reviewed Final Anesthetic Review Family History of Problems with Anesthesia: No History of Problems with Anesthesia: No
--- NOTE | 2024-06-16 09:46 | P.CONAN_ITS ---
Documented by User: Lisa Sanchez NP 06/16/24 09:47 HPI - Anesthesia Eval Consult details Narrative: 49yo F for Upper Endoscopy and Colonoscopy Anesthesia Pre-Procedure Meds Is the patient on any of the following meds?: GLP1/DPP4 and SGLT2 Inhib PMFSH Active Problems Active Problems: All Active Problems Kidney stone on left side (Acute) YA (stress urinary incontinence, female) (Acute) Urinary frequency (Acute) Vulvovaginitis (Acute) Microscopic hematuria (Acute) Femoral abnormality (Acute) UTI (urinary tract infection) (Acute) Uterine myoma (Acute) Well woman exam (Acute) Irritable bowel syndrome (Acute) Gastroesophageal reflux disease (Acute) Helicobacter pylori (H. pylori) (Acute) Complex ovarian cyst (Acute) Abnormal uterine bleeding (AUB) (Acute) Heavy menses (Acute) Past Medical History Medical History (Updated 06/17/24 @ 06:51 by Gissell Mccarty RN) Elevated cholesterol Helicobacter pylori (H. pylori) Irritable bowel syndrome Gastroesophageal reflux disease Abnormal uterine bleeding (AUB) Heavy menses Diabetes mellitus Family History Family History Father Diabetes HTN (hypertension) Mother Diabetes Paternal Grandfather Diabetes Maternal Grandfather Colon cancer Family history of problems with anesthesia: No Surgical History Surgical History History of esophagogastroduodenoscopy (EGD) Hx of colonoscopy H/O LEEP History of Problems with Anesthesia: No Social History Social History Household Members: Spouse and Children Housing: House Alcohol intake: never Patient Tobacco Use Status: Never used Tobacco Use of substances other than those prescribed or required for medical reasons: No Are you DNR?: No Advance Directives: No Advance Directives Information Provided: Yes Current occupational status: unemployed Sexual orientation: Straight/Heterosexual Gender identity: Female Meds Allergies Allergy/AdvReac Type Severity Reaction Status Date / Time simvastatin Allergy Unknown nausea, Verified 06/17/24 06:52 vomiting and dizziness Home Medications ?Medication ?Instructions ?Recorded ?Confirmed ?Last Taken ?Type atorvastatin 40 mg tablet 40 mg PO DAILY 05/13/21 06/17/24 Unknown History empagliflozin 25 mg tablet 25 mg PO QAM 05/13/21 06/17/24 06/13/24 History (Jardiance) insulin glargine 100 unit/mL 20 unit subcut QPM 05/13/21 06/17/24 Unknown History subcutaneous solution (Lantus U-100 Insulin) lisinopril 2.5 mg tablet 2.5 mg PO DAILY 05/13/21 06/17/24 Unknown History glipizide 5 mg tablet, extended 5 mg PO DAILY 06/17/24 06/17/24 06/13/24 History release 24 hr semaglutide 0.25 mg or 0.5 mg (2 0.5 mg subcut QWEEK 06/17/24 06/17/24 06/03/24 History mg/3 mL) subcutaneous pen injector (Ozempic) Exam Height,Weight and Vital Signs: Height 5 ft 5 in Weight 68.946 kg Assessment and Plan Assessment Anesthesia Assessment: Chart Reviewed Final Anesthetic Review Family History of Problems with Anesthesia: No History of Problems with Anesthesia: No Documented by User: Farhad Alanis MD 06/17/24 07:51 [facility] Past Medical History Medical History (Updated 06/17/24 @ 06:51 by Gissell Mccarty, RN) Elevated cholesterol Helicobacter pylori (H. pylori) Irritable bowel syndrome Gastroesophageal reflux disease Abnormal uterine bleeding (AUB) Heavy menses Diabetes mellitus Family History Family History Father Diabetes HTN (hypertension) Mother Diabetes Paternal Grandfather Diabetes Maternal Grandfather Colon cancer Surgical History Surgical History History of esophagogastroduodenoscopy (EGD) Hx of colonoscopy H/O LEEP Social History Social History Household Members: Spouse and Children Housing: House Alcohol intake: never Patient Tobacco Use Status: Never used Tobacco Use of substances other than those prescribed or required for medical reasons: No Are you DNR?: No Advance Directives: No Advance Directives Information Provided: Yes Current occupational status: unemployed Sexual orientation: Straight/Heterosexual Gender identity: Female Meds Allergies Allergy/AdvReac Type Severity Reaction Status Date / Time simvastatin Allergy Unknown nausea, Verified 06/17/24 06:52 vomiting and dizziness Home Medications ?Medication ?Instructions ?Recorded ?Confirmed ?Last Taken ?Type atorvastatin 40 mg tablet 40 mg PO DAILY 05/13/21 06/17/24 Unknown History empagliflozin 25 mg tablet 25 mg PO QAM 05/13/21 06/17/24 06/13/24 History (Jardiance) insulin glargine 100 unit/mL 20 unit subcut QPM 05/13/21 06/17/24 Unknown History subcutaneous solution (Lantus U-100 Insulin) lisinopril 2.5 mg tablet 2.5 mg PO DAILY 05/13/21 06/17/24 Unknown History glipizide 5 mg tablet, extended 5 mg PO DAILY 06/17/24 06/17/24 06/13/24 History release 24 hr semaglutide 0.25 mg or 0.5 mg (2 0.5 mg subcut QWEEK 06/17/24 06/17/24 06/03/24 History mg/3 mL) subcutaneous pen injector (Ozempic) Exam Airway Mallampati Class: II TM Dist: <=3cm Neck ROM: Full Loose/Missing/Broken Teeth: No Heart: ok Lungs: ok Assessment and Plan Assessment Anesthesia Assessment: Anesthesia Plan Discussed Final Anesthetic Review NPO: Yes ASA Class: II Final Preanesthetic Review: No Changes in Pt Med Stat, Meds/Allgs Chart Reviewed, Consent Obtained/Reviewed and Anes Risks/Benef Reviewed Patient Risk: Low Procedure Risk: Intermediate Anesthetic Plan Anesthetic Plan: Agree w/ Assess. and Plan and TIVA Disposition: Standard PACU
--- NOTE | 2024-06-17 06:21 | P.HPSUR_ITS ---
Pre-Procedural Eval Section A - 24 Hr Update-Section A only Date of Service: 06/17/24 Section B - Complete if H&P > 30 days Chief Complaint: gerd,screening Relevant Family History (Specify if Yes): Yes Relevant Social History: None Present Medications: see Short Stay Collaborative assessment Medical History: Significant History (Helicobacter pylori (H. pylori) Irritable bowel syndrome Gastroesophageal reflux disease Abnormal uterine bleeding (AUB) Heavy menses Diabetes mellitus) History of Previous Operations: Relevant previous surgery/procedure and date(s) (History of esophagogastroduodenoscopy (EGD) Hx of colonoscopy H/O LEEP) Allergies: Allergies Allergy/AdvReac Type Severity Reaction Status Date / Time simvastatin Allergy Unknown nausea, Verified 02/26/24 09:06 vomiting and dizziness Review of Systems Sugical H&P ROS: Negative: Constitution, Cardiovascular, Respiratory, Neurological, Psychiatric, Hem-Onc, Allergic/Immunologic, Gastrointestinal, Genitourinary, Musculoskeletal, Integumentary, Endocrine and Eyes/Ears/Nose/ Throat Exam Surgical H&P Exam: Normal: HEENT, Normal: Heart, Normal: Lungs, Normal: Extremities, Normal: Abdomen, Normal: Skin and Normal: Neurological Plan Diagnosis/Plan: Unchanged I have reviewed the history and physical and performed a pertinent physical examination on my patient. No changes have occurred unless specified. Time Spent With Patient Time: Total time managing care of this patient today ____ minutes.
[2024-06-17 06:35] LABS: UPreg QC Valid YES; Urine Pregnancy NEGATIVE (NEGATIVE)
[2024-06-17 06:39] VITALS: BP 124/66; PULSE 74; RESP 16; TEMP 36.1; O2SAT 96
[2024-06-17 06:40] LABS: Glucose, Whole Blood 168 mg/dL (60-115)
[2024-06-17] MEDS: Lactated Ringers 1,000 ML 100 ML IVCONT (06:40)
[2024-06-17 06:52] VITALS: BMI 24.5
--- NOTE | 2024-06-17 07:53 | HO.OPN-COLON ---
Colonoscopy Operative Note Operative Note Date of Service: 06/17/24 Narrative: Operative Information Procedure Description: EGD, Colonoscopy Indication: GERD adn colon cancer screening Anesthesia: MAC FLEXIBLE TRANSORAL UPPER GASTROINTESTINAL ENDOSCOPY AND COLONOSCOPY PROCEDURE NOTE UPPER ENDOSCOPY Consent: Indications for the procedure and potential complications of bleeding, perforation, reaction to medications and missed diagnosis were discussed with the patient and informed consent was obtained. Instrument: Olympus GIF H 190 J mid size upper endoscope Monitoring: Vital signs and clinical assessment, continuous EKG monitoring, Pulse oximetry, Carbon Dioxide monitoring and blood pressure monitoring were done throughout the procedure. Procedure: The patient was placed in the left lateral decubitis position and pre-procedure medications were administered and a bite block was placed. The endoscope was inserted into the mouth and advanced under direct vision to the third part of duodenum. A careful inspection was made as the upper endoscope was withdrawn including a retroflexed examination of the proximal stomach; Findings and interventions are described below. Findings: Larynx:normal Esophagus: GE junction at 37 cm, diaphragm hiatus at 37 cm, possible single island of barretts, bx taken Stomach: Patchy erythema. Biopsies were obtained. Grade 2 flap valve on retroflexed examination of the cardia. Duodenum: Normal bulb and descending duodenum, Intervention: Biopsies as noted above, COLONOSCOPY Instrument: Olympus variable stiffness pediatric scope 190L Colonoscopy Monitoring: Vital signs and clinical assessment, continuous EKG monitoring, Pulse oximetry, Carbon Dioxide monitoring and blood pressure monitoring were done throughout the procedure. Colon withdrawal time was 10 minutes. Procedure: The patient was placed in the left lateral decubitis position and pre-procedure medications were administered. After a digital rectal examination of the ano-rectum, the video colonoscope was inserted into the rectum and advanced through the colon to the cecum/TI. The colonoscope was slowly withdrawn in a retrograde panoramic fashion and the colon mucosa was carefully examined including a retroflexed view of the rectum. Findings and interventions are described below. Procedure Difficulty:moderate Findings: Terminal Ileum-normal Cecum:normal Right sided retroflexion- normal Ascending Colon: normal Transverse Colon -normal Descending Colon:normal Sigmoid Colon: normal Rectum: Retroflexion with small internal hemorrhoids, grade I Anorectum - normal Colon preparation: Lyons Bowel Preparation Scale Right colon; 2 Transverse colon: 3 Left colon; 3 (0 = Unprepared colon segment with mucosa not seen due to solid stool that cannot be cleared. 1 = Portion of mucosa of the colon segment seen, but other areas of the colon segment not well seen due to staining, residual stool and/or opaque liquid. 2 = Minor amount of residual staining, small fragments of stool and/or opaque liquid, but mucosa of colon segment seen well. 3 = Entire mucosa of colon segment seen well with no residual staining, small fragments of stool or opaque liquid) Impression and Post Procedure Diagnosis: Endoscopy Findings: gastritis Colonoscopy Findings: internal hemorrhoids Plan: Await Pathology results Repeat Colonoscopy in 10 years or earlier if clinically indicated High fiber diet leaflet avoid straining at stool, epsom salts and sitz bath, anusol supps or cream If h pylori pos then treat Above findings were reviewed with the patient and relevant handouts were provided if indicated.
[2024-06-17 08:19] VITALS: BP 87/42; PULSE 88; RESP 17; TEMP 36.1; O2SAT 96
[2024-06-17 08:35] VITALS: BP 107/65; PULSE 77; RESP 16; TEMP 36.1; O2SAT 98
== END 2024-06-17 09:07 | disposition home or self-care (01) ==
PROVIDERS: Nurse Practitioner; PCP Nurse Practitioner Primary Care; Visit Provider Internal Medicine Gastroenterology
PROC: (CPT 45378; principal; 2024-06-17 07:30)
DX: Z12.11 Encounter for screening for malignant neoplasm of colon (principal); K64.0 First degree hemorrhoids; K29.70 Gastritis, unspecified, without bleeding; K21.9 Gastro-esophageal reflux disease without esophagitis; E11.9 Type 2 diabetes mellitus without complications; E78.5 Hyperlipidemia, unspecified; K58.1 Irritable bowel syndrome with constipation; Z79.4 Long term (current) use of insulin; Z79.85 Long-term (current) use of injectable non-insulin antidiabetic drugs; Z79.02 Long term (current) use of antithrombotics/antiplatelets; Z79.899 Other long term (current) drug therapy
CPT/HCPCS: 45378; 43239; 81025; 82947; 88305; 88342; J2003; J2704; J3010

== ENCOUNTER → 2024-06-17 06:10 | Outpatient (BNV) | payer MEDICAID, SELFPAY | PROVIDERS: PCP Nurse Practitioner Primary Care; Visit Provider Internal Medicine Gastroenterology | DX: Z12.11 Encounter for screening for malignant neoplasm of colon (principal); K64.0 First degree hemorrhoids; K21.9 Gastro-esophageal reflux disease without esophagitis; K29.70 Gastritis, unspecified, without bleeding | CPT/HCPCS: 43239; 45378 ==

== ENCOUNTER → 2024-07-01 11:51 | Outpatient (BNVA) | payer MEDICAID, SELFPAY | PROVIDERS: PCP Nurse Practitioner Primary Care; Visit Provider Nurse Practitioner Family | DX: K59.01 Slow transit constipation (principal); K58.1 Irritable bowel syndrome with constipation; K21.9 Gastro-esophageal reflux disease without esophagitis; A04.8 Other specified bacterial intestinal infections | CPT/HCPCS: 99212 ==

== ENCOUNTER 2024-07-25 09:05 | Outpatient (REF) | payer MEDICAID, SELFPAY ==
--- NOTE | ~2024-07-25 | US_ITS ---
CLINICAL HISTORY: N20.0 - Calculus of kidney US renal with Color Doppler Comparison: None Findings: Right kidney normal size and echotexture, 11.7 cm length. No hydronephrosis calculus or mass. Normal color flow. Mild pelvicaliectasis. Probable vascular reflectors. Left kidney normal size and echotexture, 13.4 cm length. Mild hydronephrosis Normal color flow. Incidental parapelvic cyst midpole measuring 10 x 10 x 9 mm. Nonobstructing caliceal stones lower pole measuring 2 x 2 x 1 mm and midpole measuring 2 x 2 x 2 mm. Bilateral ureteral jets were demonstrated within the urinary bladder which excludes complete obstructive uropathy. Impression: 1. Mild pelvicaliectasis on the right without definite calculi. 2. Nephrolithiasis on the left. Mild left hydronephrosis. Incidental parapelvic cyst left kidney. 3. Ureteral jets were demonstrated in the urinary bladder which excludes complete obstructive uropathy. This document has been electronically signed by: Maximo Mora MD on 07/25/2024 11:24:39
--- OUTSIDE RECORDS SUMMARY | 2024-07-25 09:37 | XMS_ITS | Encounter Summary ---
Author Organization [employer] Address [address] [place] [address] Care Team Providers Care Roundhouse Supervisor Name Role Phone Shawn Deidre MCLAIN Primary Care Provider [phone] Reason for Visit * Reason Onset Date Comments Results 07/24/2024 Encounter Details Date Type Department Care Team ([facility] st Contact Info) Description 07/24/[address] [facility] [address] [place] [address] Marcia Villegas RN Results Social History Tobacco Use Types Packs/Day Years Used Date Smoking Tobacco: Never Passive Smoke Exposure: Never Smokeless Tobacco: Never Alcohol Use Standard Drinks/Week Comments Never 0 (1 standard drink = 0.6 oz pur e alcohol) Depression Answer Date Recorded Patient Health Questionnaire-9 Score 2 01/22/2024 Patient Health Questionnaire-9 Score 2 01/22/2024 Last PHQ-9: Questionnaire Data Not on file 0 01/22/2024 Housing Stability Answer Date Recorded What is your housing situation today? I have erik nuñez 03/26/[address] you li ve. Do you have problems with any of the following? None of the above 03/26/2023 Food Insecurity Answer Date Recorded Within the past 12 months, y ou worried that your food would run out before you got money to buy more: Never True 03/26/2023 Within the past 12 months,th e food you bought just didn't last and you didn't have enough money to get more: Never True Transportation Answer Date Recorded In the past 12 months, has l ack of transportation kept you from medical appts, meetings, work or from getting things needed for daily living? No 01/04/2024 Utilities Answer Date Recorded In the past 12 months, has t he electric, gas, oil or water company threatened to shut off services in your home? No 03/26/2023 Depression Answer Date Recorded Patient Health Questionnaire-2 Score 0 01/22/2024 Internet Access Answer Date Recorded Internet Access Q1 Yes 01/28/2024 Internet Access Q2 Not on file 01/28/2024 Comments Unknown Sex and Gender Information Value Date Recorded Sex Assigned at Female 03/27/2022 10:26 AM EDT Legal Sex Female 10:26 AM EDT Gender Identity Female 03/27/2022 10:26 AM EDT Sexual Orientation Choose not to disclose 2021 10:26 AM EDT documented as of this encounter Miscellaneous Notes * Telephone Encounter - Marcia Villegas RN - 07/24/2024 9:51 AM EST TC placed to pt with S glass technologist #[id number] to inform and advise on PCP message below. Pt confirms that she has been taking the prescribed Atorvastatin (Lipitor) 40 MG daily. Pt also educated on lifestyle recommendations and dietary changes to help with cholesterol levels. Pt agreeable and also r/sappt with PCP for DM F/U. Appt is now scheduled for 09/05/2024 at 215. ----- Message from Deidre Escobar sent at 07/23/2024 3:07 PM EST ----- Please confirm with patient that she is taking her statin medication at bedtime as recommended. Please also reinforce lifestyle changes like high-fiber diet, diet low in saturated fat, and increase exercise. She missed her March appointment for follow-up so please schedule DM follow-up if not onrecall. Thank you documented in this encounter Plan of Treatment Upcoming Encounters Date Type Department Care Team (Late st Contact Info) Description 09/05/2024 2:15 PM EDT Office Visit [facility] [address] [place] [address] Deidre Escobar ANP [address] [place] [address] documented as of this encounter Visit Diagnoses Not on filedocumented in this encounter Additional Health Concerns Assessment Noted Time PHQ-9 Depression Total Score: 2 01/22/20 24 12:03 PM EDT documented as of this encounter Care Teams Roundhouse Supervisor Relationship Specialty Start Date End Date Deidre Escobar ANP [address] [place] [address] PCP - General Family Medicine 06/01/22 documented as of this encounter
--- OUTSIDE RECORDS SUMMARY | 2024-07-25 09:37 | XMS_ITS | Clinical Summary ---
Author Organization [email or web address] Address [address] [place] [address] Care Team Providers Care Solar Sales Energy Advisor Name Role Phone Ramiro Lowe RAYNE Primary Care Provider [phone] Allergies No known active allergies Medications glucose blood (FREESTYLE LITE) test stripIndications :Hyperlipidemia associated with type 2 diabetes mellitus (CMS/HCC) (CMS/[facility]) Test blood sugar three times daily 100 each 9 022 Active TRUEplus Lancets 33G miscIndications: Type 2 diabetes mellitus with hyperlipidemia (CMS/HCC) (CMS/[facility]) TEST BLOOD SUGAR THREE TIMES DAILY 100 each 11 023 Active Blood Glucose Monitoring Suppl (FreeStyle Lite) w/Device kitIndications:T ype 2 diabetes mellitus with hyperlipidemia (CMS/HCC) (CMS/HCC) 1 each if needed in the morning, at noon, in the evening, and at bedtime (symptoms). 1 kit 023 Active omeprazole (PriLOSEC) [address] capsuleIndicatio ns:Gastroesophag eal reflux disease, unspecified whether esophagitis present TAKE 1 CAPSULE BY MOUTH EVERY DAY BEFORE A MEAL 90 capsule 023 Active ibuprofen 600 MG tabletIndication s:Acute pain of right shoulder Take 1 tablet as needed with food up to TID for pain 90 tablet 023 Active atorvastatin (Lipitor) 40 MG tabletIndication s:Type 2 diabetes mellitus with hyperlipidemia (CMS/HCC) (CMS/HCC),High cholesterol Take 1 tablet (40 mg) by mouth Once daily. 90 tablet 3 02/12/2 024 Active insulin pen needle (Pentips) 32G x 4 mm miscIndications: Type 2 diabetes mellitus with hyperlipidemia (CMS/HCC) ([facility]),Type 2 diabetes mellitus with other specified complication, with long-term current use of insulin ([facility]) USE EVERY DAY 100 each 3 Active LORazepam (Ativan) 1 MG tabletIndication s:Anxiety Take 0.5-1 tab as needed 30 minutes before procedure. May repeat once after 30 minutes if insufficient response 4 tablet Active Continuous Glucose Vocational Ed Instructor (FreeStyle Robby 2 Monroe) deviceIndication s:Type 2 diabetes mellitus with hyperlipidemia (CMS/HCC) ([facility]) Scan sensor every 8 hours 1 each Active Continuous Glucose Sensor (FreeStyle Robby 2 Sensor) miscIndications: Type 2 diabetes mellitus with hyperlipidemia (CMS/HCC) ([facility]) Apply 1 sensor every 14 days 2 each Active glucose blood (FreeStyle Precision Abdelrahman Test) test stripIndications :Type 2 diabetes mellitus with hyperlipidemia (CMS/HCC) ([facility]) Use to test blood sugar 3 times daily 100 each 12 024 2024 Active Jardiance 25 MGIndications:Ty pe 2 diabetes mellitus with hyperlipidemia (CMS/HCC) ([facility]) TAKE 1 TABLET BY MOUTH EVERY MORNING 30 tablet 5 Active solifenacin (VESIcare) 10 MG tablet Take 10 mg by mouth Once per day. Active pantoprazole (ProtoNix) 40 MG EC tablet TAKE 1 TABLET BY MOUTH EVERY DAY 30 MINUTES BEFORE BREAKFAST Active medroxyPROGESTER one (Provera) 10 MG tablet TAKE 1 TABLET BY MOUTH EVERY DAY FOR 10 DAYS STARTING ON DAY 1 OF MENSES Active dulaglutide (Trulicity) 4.5 MG/0.5ML solution pen-injector Inject under the skin 1 (one) time per week. Active glipiZIDE XL (Glucotrol XL) 5 MG 24 hr tabletIndication s:Type 2 diabetes mellitus with hyperlipidemia (CMS/HCC) ([facility]) TAKE 1 TABLET BY MOUTH ONCE DAILY WITH A MEAL DO NOT BREAK, CRUSH, DISSOLVE OR CHEW 90 tablet 1 11/25/2 024 Active Lantus SoloStar 100 UNIT/ML penIndications:T ype 2 diabetes mellitus with hyperlipidemia (CMS/HCC) (CMS/HCC) INJECT 20 UNITS SUBCUTANEOUSLY AT BEDTIME 15 mL 3 024 Active lisinopril 2.5 MG tabletIndication s:Type 2 diabetes mellitus with hyperlipidemia (CMS/HCC) (CMS/HCC),Essent ial hypertension TAKE 1 TABLET BY MOUTH EVERY DAY 90 tablet 1 024 Active Ozempic, 0.25 or 0.5 MG/DOSE, 2 MG/3ML solution pen-injectorIndi cations:Type 2 diabetes mellitus with hyperlipidemia (CMS/HCC) (CMS/HCC) INJECT 0.5 MG SUBCUTANEOUSLY EVERY 7 DAYS IN THE ABDOMEN, THIGHS, OR UPPER ARM, ROTATE INJECTION SITES. 3 mL 2 024 Active DULoxetine (Cymbalta) [address] capsuleIndicatio ns:Fibromyalgia TAKE 1 CAPSULE BY MOUTH EVERY DAY 30 capsule 1 025 Active atorvastatin (Lipitor) 40 MG tabletIndication s:High cholesterol Take 1 tablet (40 mg) by mouth in the morning. 90 tablet 023 Discontinued(R eorder (will not trigger notification to Pharmacy)) DULoxetine (Cymbalta) [address] capsuleIndicatio ns:Fibromyalgia TAKE 1 CAPSULE BY MOUTH EVERY DAY 30 capsule 1 024 2024 Discontinued Active Problems Problem Noted Date Diagnosed Date Fibromyalgia 08/15/2022 Type 2 diabetes mellitus with hyperlipidemia (CM S/HCC) 08/15/2022 Essential hypertension 06/15/2022 Encounters Date Type Department Care Team Description 07/24/2024 Telephone [facility] [address] [place] [address] Marcia Villegas RN Results 07/02/2024 Refill [facility] [address] [place], [place] [phone] Ramiro Lowe ANP Fibromyalgia 06/17/2024 Orders Only GENERIC EXTERNAL DATA DEPARTMENT Provider, Generic External Data 05/23/2024 Refill [facility] [address] [place] [address] Ramiro Lowe ANP Type 2 diabetes mellitus with hyperlipidemia (CMS/HCC) (CMS/HCC) 05/02/2024 Refill [facility] [address] [place] [address] Nina Zepeda, DO Fibromyalgia 05/02/2024 Refill [facility] [address] [place] [address] Ramiro Lowe ANP Type 2 diabetes mellitus with hyperlipidemia ([facility]/HCC) ([facility]); Essential hypertension; Fibromyalgia 04/28/2024 Refill [facility] [address] [place], [place] [phone] Ramiro Lowe ANP Type 2 diabetes mellitus with hyperlipidemia ([facility]/HCC) ([facility]) from Last 3 Months Immunizations Name Administration Dates Next Due Influenza injectable quadriv alent IIV4 with preservative 04/25/2018 Influenza injectable quadrivalent preservative f ree 02/23/2023,04/18/2021 Influenza, IIV3, injectable 05/13/2015 Moderna Covid-19 Vaccine 12+ 10/20/2020,09/23/19 21 Pneumococcal Polysaccharide PPSV23 04/25/2018 Td (adult), 5 Lf tetanus tox oid, preservative free, adsorbed 05/13/2015,05/24/2014 Social History Tobacco Use Types Packs/Day Years Used Date Smoking Tobacco: Never Passive Smoke Exposure: Never Smokeless Tobacco: Never Tobacco Cessation:Counseling Given: Not Answered Alcohol Use Standard Drinks/Week Comments Never 0 (1 standard drink = 0.6 oz pur e alcohol) Depression Answer Date Recorded Patient Health Questionnaire-9 Score 2 01/22/2024 Patient Health Questionnaire-9 Score 2 01/22/2024 Last PHQ-9: Questionnaire Data Not on file 0 01/22/2024 Housing Stability Answer Date Recorded What is your housing situation today? I have erikdave nuñez 03/26/[address] you [...] not to disclose 2021 10:26 AM EDT Last Filed Vital Signs Vital Sign Reading Time Taken Comments Blood Pressure 100/70 01/22/2024 10:40 AM EDT Pulse 89 01/22/2024 10:40 AM EDT Temperature 36.4 ??C (97.6 ??F) 01/22/2024 10:40 AM E DT Respiratory Rate 20 01/22/2024 10:40 AM EDT Oxygen Saturation 99% 01/22/2024 10:40 AM EDT Inhaled Oxygen Concentration - - Weight 67.8 kg (149 lb 6.4 oz) 01/22/2024 10:40 AM EDT Height 165.1 cm (5' 5 ) 01/22/2024 10:40 AM EDT Body Mass Index 24.86 01/22/2024 10:40 AM EDT Plan of Treatment Upcoming Encounters Date Type Department Care Team (Late st Contact Info) Description 09/05/2024 2:15 PM EDT Office Visit [facility] [address] [place] [address] Ramiro Lowe, RAYNE [address] [place] [address] Health Maintenance Due Date Last Done Comments CT Colonography 1975 FIT DNA/Cologuard 1975 FIT 1975 FOBT 1975 Sigmoidoscopy 1975 Alcohol/Substance Use Screening 1987 Family Planning (PISQ) 1990 Hepatitis B Vaccines (1 of 3 - 19+ 3-dose series) 1994 DTaP/Tdap/Td Vaccines (1 - Tdap) 05/14/2015 05/13/2015, 05/24/2014 Pneumococcal Vaccine: Pediatrics (0 to 5 Years) and At-Risk Patients (6 to 49) Years) (2 of 2 - PCV) 04/25/2019 04/25/2018 Colonoscopy 11/15/2023 11/14/2022 Colorectal Cancer Screening 11/15/2023 COVID-19 Vaccine (3 - season) 2024 10/20/2020, 09/22/2020 Influenza Vaccine (#1) 2024 , 04/18/2021, 04/25/2018, Additional history exists Diabetes: Foot Exam 02/24/2024 02/23/2023 Diabetes: Urine Protein Screening 04/05/2024 04/05/2023, 03/04/2021 Diabetes: Hemoglobin A1C 04/23/2024 024, 10/25/2023, 07/09/2023, Additional history exists Mammogram 12/13/2024 12/14/2023, 11/25, 12/04/2022 SDOH Screening 01/03/2025 01/04/2024 Depression Screening 01/21/2025 01/22/2024, 01/22/20 24 Lipid Panel 01/29/2025 01/30/2024, 11/0 01/2023, 03/04/2021 Zoster Vaccines (1 of 2) 2025 Eye Exam 02/21/2025 02/22/2024, 01/27, 02/22/2024, Additional history exists Tobacco Screening 02/27/2025 02/28/2024 Cervical Cancer Screening 05/13/2026 HPV/Cotest 05/13/2026 05/13/2021, 05/13/2021 Pap Smear 05/13/2026 05/13/2021 RSV Patients and Patients Aged 60 years or older (1 - 1-dose 75+ series) 2050 HIV Screening Completed 01/30/2024, 03/04/2021 Hepatitis C Screening Completed 01/30/2024 HIB Vaccines Aged Out No longer eligi ble based on patient's age to complete this topic HPV Vaccines Aged Out No longer eligi ble based on patient's age to complete this topic Hepatitis A Vaccines Aged Out No long er eligible based on patient's age to complete this topic IPV Vaccines Aged Out No longer eligi ble based on patient's age to complete this topic Meningococcal Vaccine Aged Out No abhilash emre eligible based on patient's age to complete this topic RSV under 20 months Aged Out No longe r eligible based on patient's age to complete this topic Rotavirus Vaccines Aged Out No longer eligible based on patient's age to complete this topic Procedures Procedure Name Priority Date/Time Associated Diagnosis Comments HEMATOXYLIN AND EOSIN STAIN Routine 06/17/2024 7:50 AM EST GLUCOSE, WHOLE BLOOD Routine 06/17/2024 6:35 AM EST HCG, QL, URINE Routine 06/17/2024 6:18 AM EST HEPATITIS C AB W/REFL TO HCV RNA, QN, PCR Routine 01/30/2024 8:38 AM EDT Routine screening for STI (sexually transmitted infection) HIV 1/2 ANTIGEN/ANTIBODY, FOURTH GENERATION W/RFL Routine 01/30/2024 8:38 AM EDT Routine screening for STI (sexually transmitted infection) LIPID PANEL, STANDARD Routine 01/30/2024 8:38 AM EDT Type 2 diabetes mellitus with hyperlipidemia (CMS/HCC) (CMS/HCC) POCT GLYCATED HEMOGLOBIN, TOTAL Routine 01/22/2024 1:51 PM EDT Type 2 diabetes mellitus with hyperlipidemia (CMS/HCC) (CMS/HCC) BI MAMMOGRAM SCREENING TOMOSYNTHESIS BILATERAL Routine 12/14/2023 11:53 AM EDT ALBUMIN, RANDOM URINE W/CREATININE Routine 04/05/2023 8:43 AM EST Type 2 diabetes mellitus with hyperlipidemia (CMS/HCC) HM COLONOSCOPY Routine 11/14/2022 2:16 PM EDT LEIGHANN HISTORICAL HPV E6/E7 RFLX PARTHA 16 18/45 Routine 05/13/2021 2:07 PM EST HM PAP/HPV Routine 05/13/2021 from Last 3 Months or Most Recently Relevant to Health Maintenance Results * Hematoxylin and Eosin Stain (06/17/2024 7:50 AM EST) 06/17/2024 7:50 AM EST 06/17/2024 8:35 AM EST Narrative [facility] - 06/19/2024 4:25 PM EST ----- ------- Name: Radha Wellington ? Age/Sex: 49/F ? : 1975 Unit#: [id number] ?? Attend Dr: Mitzy Valderrama MD ?Re06/17/24 ?Status: DEP SDC ? Location: HO.SSS ?Disch: ? ----- ------- SPEC : [id number] ?RECD: 06/17/24 ? STATUS: ??SOUT ? REQ NUM: [id number] ? HEATHER: 06/17/24 ? SUBM DR: Mitzy Valderrama MD ? ENTERED: ??06/17/24 ?SP TYPE: Surgical ? OTHR DR: RAMIRO LOWE PRODUCTION DRILLING MACHINE OPERATOR ? ORDERED: ??HE Stain/9, Gross Micro L4/3, H. pylori ? Diagnosis ?? A. ??Stomach, biopsy: ??Gastric body mucosa with minimal chronic inactive gastritis; ?? negative for H. pylori, intestinal metaplasia and dysplasia. ? B. ??Gastroesophageal junction, biopsy: ??Squamous mucosa with few submucosal glands and no ?? specific change; no columnar mucosa present. ? C. ??Esophagus, distal, biopsy: ??Squamous mucosa with no specific change; no columnar ?? mucosa present. ?Clinical History Pre-Op Dx: ??GERD, screening Post-Op Dx: Gastritis, possible short segment Hamilton's, hemorrhoids ?Microscopic Description Microscopic sections reviewed. ??Immunostain for H. pylori on A is negative with appropriate control. ? Material Received ?? A. Stomach biopsies ?? B. GE junction biopsies ?? C. Distal esophagus biopsies ? Gross Description Received in three parts. Part A: ??Received in formalin labeled ?stomach biopsies? are 3 guido irregular tissue fragments ranging from minute to 0.15 cm, submitted in toto in a cassette labeled A. Part B: ??Received in formalin labeled ?GE junction biopsies? are 2 pale, lr-guido irregular tissue fragments measuring less than 0.1 and 0.2 cm, submitted in toto in a cassette labeled B. Part C: ??Received in formalin labeled ?distal esophagus biopsies? are 2 lr-white rectangular tissue fragments each measuring 0.3 cm, submitted in toto in a cassette labeled C. CEDS ? CONTINUED ON NEXT PAGE ----- ------- Name: Radha Wellington ? Age/Sex: 49/F ? : 1975 Unit#: [id number] ?? Attend Dr: Mitzy Valderrama MD ?Re06/17/24 ?Status: DEP SDC ? Location: HO.SSS ?Disch: ? ----- ------- SPEC : [id number] ?RECD: 06/17/24-834 ? STATUS: ??SOUT ? REQ NUM: [id number] ? HEATHER: 06/17/24-0750 ? SUBM DR: Mitzy Valderrama MD ? ENTERED: ??06/17/24-844 ?SP TYPE: Surgical ? OTHR DR: RAMIRO LOWE NP ? ORDERED: ??HE Stain/9, Gross Micro L4/3, H. pylori ? Gross Description ?(Continued) Special studies ordered and performed: Immunostain for H. pylori on A1. Copies To: ?? Mitzy Valderrama MD ?? [facility] ?? [address] ?? [place] [address] ?? [phone] ?? RAMIRO LOWE NP ?? [facility] ?? [address] [place] [address] ?? [place] [address] ?? [phone] ----- ------- Signed (signature on file) Chichi Corning 06/19/24 3245 ? ----- ------- ? END OF REPORT ? us Generic External Data Provider LAB BLOOD ORDERAB LES Final Result Performing Organization Address [facility] de Phone Number [facility] [address] [place] [phone] * (ABNORMAL) Glucose, Whole Blood (06/17/2024 6:35 AM EST) Glucose, Whole Blood 168(H) 60 - 115 mg/dL [facility] Comment:METER #: [id number] 06/17/2024 6:35 AM EST 06/17/2024 6:40 AM EST Generic External Data Provider LAB BLOOD ORDERAB LES Final Result Performing Organization Address [facility] de Phone Number [facility] [address] [place] [address] [phone] * HCG, Qualitative, Urine (06/17/2024 6:18 AM EST) Urine NEGATIVE NEGATIVE [facility] Comment:This test was develo ped to detect early . Falsenegative results may occur after the 5th - 7th week ofpregnancy when using this test method. If clinicallyindicated, consider a serum hCG. 06/17/2024 6:18 AM EST 06/17/2024 6:26 AM EST Generic External Data Provider LAB URINE ORDERAB LES Final Result Performing Organization Address [facility] de Phone Number [facility] [address] [place] [address] [phone] * Hepatitis C Antibody with Reflex to HCV, RNA, Quantitative, Real-Time PCR (01/30/2024 8:38 AM EDT) [facility] Hepatitis C Antibody Nonreactive Nonreactive [facility] Comment:Antibodies to HCV no t detected; does not exclude early acuteHCV infection. Blood Venous blood specimen / Unknown 01/30/2024 8:38 AM EDT 01/30/2024 10:56 AM EDT Ramiro Lowe [facility] LAB BLOOD ORDERABLES Final Resul t Performing Organization Address [facility] Co de Phone Number [facility] [address] [place] [phone] * HIV-1/2 Antigen and Antibodies, Fourth Generation, with Reflexes (01/30/2024 8:38 AM EDT) [facility] HIV AB/AG Nonreactive Nonreactive [facility] Comment:HIV-1 p24 Ag and/or HIV-1/HIV-2 Ab not detected.A test result that is nonreactive does not exclude thepossibility of exposure to or infection with HIV-1 and/orHIV-2. Nonreactive results in this assay for individualswith prior exposure to HIV-1 and/or HIV-2 may be due toantigen and antibody levels that are below the limit ofdetection of this assay.The [employer] HIV Ag/Ab Combo assay result andsupplemental assay results should be interpreted inconjunction with the patient's clinical presentation,history and other laboratory results. If the results areinconsistent with clinical evidence, additional testing issuggested to confirm the result. Blood Venous blood specimen / Unknown 01/30/2024 8:38 AM EDT 01/30/2024 10:56 AM EDT us Ramiro Lowe [facility] LAB BLOOD ORDERABLES Final Resul t Performing Organization Address City/[facility]/ZIP Co de Phone Number [facility] [address] [place] [phone] * (ABNORMAL) Lipid Panel, Standard (01/30/2024 8:38 AM EDT) Triglycerides 118 <150 mg/dL [facility] Comment:Desirable Triglyceri de: less than 150 mg/dLBorderline High Triglyceride 150-199 mg/dLHigh Triglyceride: 200-499 mg/dLVery High Triglyceride: greater than or equal to 5OO mg/dL Cholesterol 215(H) <200 mg/dL [facility] Comment:Desirable Cholestero l: less than 200 mg/dLBorderline High Cholesterol: 200-239 mg/dLHigh Cholesterol: greater than 239 mg/dL LDL Cholesterol Calculated 140(H) <100 mg/dL [facility] Comment:Desirable LDL: less than 100 mg/dLNear Optimal/Above Optimal LDL: 110- 129 mg/dLBorderline High LDL: 130-159 mg/dLHigh LDL: 160-189 mg/dLVery High LDL: greater than or equal to 190 mg/dL HDL Cholesterol 52 >40 mg/dL [facility] Comment:Desirable HDL: great er than 40 mg/dL Note: This HDL assay may give artificially low results in patients with liver disease. Blood Venous blood specimen / Unknown 01/30/2024 8:38 AM EDT 01/30/2024 10:56 AM EDT us Ramiro MCLAIN LAB BLOOD ORDERABLES Final Resul t [facility] [address] [place] [phone] * (ABNORMAL) POCT HGB A1C (01/22/2024 1:51 PM EDT) Hemoglobin A1C 8.6(A) 4.0 - 6.0 % QC Media Lot # [id number] Lot# Expiration Date Blood 01/22/2024 1:51 PM EDT us Ramiro Lowe ANP POINT OF CARE TEST ENTER/EDIT OR DERABLES Final Result * BI Mammogram Screening Tomosynthesis Bilateral (12/14/2023 11:53 AM EDT) Anatomical Region Laterality Modality Breast Bilateral Mammography 12/14/2023 11:5 3 AM EDT Narrative 01/08/2024 2:50 PM EDT ? [facility] ? [address] ?[place] [address] ? Mammography Report ? Signed ? Patient: Amish,Radha ?MR#: [id number] ?? [id number] ? : 1975 ?Acct:[id number] ? Age/Sex: 48 / F ?ADM Date: 12/14/23 ? Loc: HO.MAMMO ? Attending Dr: Aaron De Jesus MD ? Ordering Physician: Aaron De Jesus MD ?Results: 1Negativ ?? e ? Date of Service: 12/14/23 ?Follow Up: 1 Year From Orig ?? inal Mammogram ? Procedure(s): MM tomosynthesis screening BI ?? Accession Number(s): [id number] ? cc: RAMIRO LOWE NP; Aaron De Jesus MD ? EXAMINATION: ?? MM SCREENING DIGITAL BREAST TOMOSYNTHESIS, BILATERAL ? CLINICAL INFORMATION: ? Screening. Asymptomatic. ? COMPARISON: ?? Mammography: This study is compared with prior exams dating back to ?? 2017. ? TECHNIQUE: ?? Digital breast tomosynthesis is performed in both the craniocaudal and ?? mediolateral oblique views along with computer-aided detection (CAD). ?? Synthesized 2D images are generated from the tomosynthesis. ? FINDINGS: ?? There are scattered areas of fibroglandular density (ACR BI-RADS breast ?? composition Category b). ? There are no significant masses, abnormal calcifications, or other ?? abnormalities. ? MM/MM tomosynthesis screening BI ?? IMPRESSION: ?? No mammographic evidence of malignancy. ? ASSESSMENT: ? BI-RADS BI-RADS 1 - Negative ? RECOMMENDATION: ?? Routine annual mammography screening. ? 1 year F/U ? This examination should not preclude the clinical evaluation of a ?? suspicious palpable abnormality. ? This patient's information was entered into a reminder system with a ?? target due date for their next mammogram. ? Dictated By: ?Yelena Montero MD ? Signed By: ?<Electronically signed by Yelena Montero MD in OV> ? 01/08/24 1445 ? DD/ 1153 ? TD/TT: ? Wire Stretcher: ? Procedure Note Windy, Image - 01/08/2024 [facility] [address] [place] [address] Mammography Report Signed Patient: Fe Wellington#: [id number] : 1975Acct:[id number] Age/Sex: 48 / FADM Date: 12/14/23 Loc: HO.MAMMO Attending Dr: Aaron De Jesus MD Ordering Physician: Aaron De Jesus MDResults: 1Negativ e Date of Service: 12/14/23Follow Up: 1 Year From Orig inal Mammogram Procedure(s): MM tomosynthesis screening BI Accession Number(s): [id number] cc: RAMIRO LOWE PRODUCTION DRILLING MACHINE OPERATOR; Aaron De Jesus MD EXAMINATION: MM SCREENING DIGITAL BREAST TOMOSYNTHESIS, BILATERAL CLINICAL INFORMATION: Screening. Asymptomatic. COMPARISON: Mammography: This study is compared with prior exams dating back to 2017. TECHNIQUE: Digital breast tomosynthesis is performed in both the craniocaudal and mediolateral oblique views along with computer-aided detection (CAD). Synthesized 2D images are generated from the tomosynthesis. FINDINGS: There are scattered areas of fibroglandular density (ACR BI-RADS breast composition Category b). There are no significant masses, abnormal calcifications, or other abnormalities. MM/MM tomosynthesis screening BI IMPRESSION: No mammographic evidence of malignancy. ASSESSMENT: BI-RADS BI-RADS 1 - Negative RECOMMENDATION: Routine annual mammography screening. 1 year F/U This examination should not preclude the clinical evaluation of a suspicious palpable abnormality. This patient's information was entered into a reminder system with a target due date for their next mammogram. Dictated By: Yelena Montero MD Signed By: <Electronically signed by Yelena Montero MD in OV> 01/08/24 1445 DD/ 1153 TD/TT: Wire Stretcher: [facility] External Provider IMG BI PROCEDURES Final Result * Albumin, Random Urine W/Creatinine (04/05/2023 8:43 AM EST) Creatinine, Urine 84.26 mg/dL [facility] Microalbumin Urine 10.0 mg/L [facility] Microalbum Creatinine Ratio Ur 11.8 <30 ug/mg cr [facility] Comment:Albumin/Creatinine R atio Reference Ranges: Normal: < 30 ug/mg creatinine Microalbuminuria: 30 - 300 ug/mg creatinineClinical Albuminuria: > 300 ug/mg creatinine Urine (Urine, Random) 04/05/2023 8:43 AM EST 04/05/2023 11:13 AM EST [facility] LAB URINE ORDERABLES Final Resul t [facility] [address] [place] [phone] * (ABNORMAL) Hm Colonoscopy (11/14/2022 2:16 PM EDT) Colonoscopy Abnormal(A ) Normal Historical Provider HEALTH MAINTENANCE Edited Result - Final * HPV E6/E7 RFLX PARTHA 16 18/45 (05/13/2021 2:07 PM EST) HPV mRNA E6/E7 rflx Not Detected Not Detected [facility] Comment: Methodology: [employer]-Mediated Amplification This assay detects E6/E7 viral messenger RNA (mRNA) from 14 high-risk HPV types (16,18,31,33,35,39,45,51,52,56,58,59,66,68). The analytical performance characteristics of this assay have been determined by [employer]. The modifications have not been cleared or approved by the FDA. This assay has been validated pursuant to the CLIA regulations and is used for clinical purposes. For additional information, please refer to http://education.[employer]/faq/WCD451f6 (This link if provided for information/ educational purposes only.) THIS TEST WAS PERFORMED AT: [employer] [address] [place] [address],[address] [place], [place] ??[phone] LYNETTE RICHARDS MD 05/13/2021 2:07 PM EST Ashley Sue HISTORICAL/NON ORDERABLE LABS Fi nal Result [facility] Anywhere [address] * Hm Pap Smear (05/13/2021) Historical Provider HEALTH MAINTENANCE Final Result from Last 3 Months or Most Recently Relevant to Health Maintenance [facility] [employer] [address] [place] [id number] Care Teams Solar Sales Energy Advisor Relationship Specialty Start Date End Date Ramiro Lowe ANP [address] [place] [id number] PCP - General Family Medicine 06/01/22
--- OUTSIDE RECORDS SUMMARY | 2024-07-25 09:37 | XMS_ITS | Encounter Summary ---
Author Organization [employer] Address [address] [facility] [address] [place] [address] Care Team Providers Care Weight Recorder Name Role Phone Deidre Escobar Primary Care Provider [phone] Reason for Visit * Reason Comments Med Refill Encounter Details Date Type Department Care Team ([facility] st Contact Info) Description 07/02/2024 Refill [facility] MEDICINE [address] [place], [place] [phone] Deidre Escobar ANP [address] [place] [address] Fibromyalgia Social History Tobacco Use Types Packs/Day Years [...] AM EDT documented as of this encounter Plan of Treatment Upcoming Encounters Date Type Department Care Team (Late st Contact Info) Description 09/05/2024 2:15 PM EDT Office Visit [facility] MEDICINE [address] [place] [address] Deidre Escobar ANP [address] [place] [address] documented as of this encounter Visit Diagnoses Diagnosis Fibromyalgia Unspecified myalgia and myositis documented in this encounter Additional Health Concerns Assessment Noted Time PHQ-9 Depression Total Score: 2 01/22/20 24 12:03 PM EDT documented as of this encounter Care Teams Weight Recorder Relationship Specialty Start Date End Date Deidre Escobar ANP [address] [place] [address] PCP - General Family Medicine 06/01/22 documented as of this encounter
--- OUTSIDE RECORDS SUMMARY | 2024-07-25 09:37 | XMS_ITS | Clinical Summary ---
Author Organization [facility] Address [address] [place] [address] Care Team Providers Care Gear Lapping Machine Operator Name Role Phone Unavailable Primary Care Provider Unavailabl e Social History Tobacco Use Types Packs/Day Years Used Date Smoking Tobacco: Never Assessed Sex and Gender Information Value Date Recorded Sex Assigned at Not on file Gender Identity Not on file Sexual Orientation Not on file Plan of Treatment Health Maintenance Due Date Last Done Comments Hepatitis C Virus Screening 1975 HIV Screening 02/09/1988 DTaP/Tdap/Td Vaccines (1 - Tdap) 1994 Hepatitis B Vaccines (1 of 3 - 19+ 3-dose series) 1994 COVID-19 Vaccine (2023-2 5 season) 2024 Pneumococcal Vaccine: Pediat schuyler (0-5 Years) and At-Risk Patients (6 to 49 Years) Aged Out No longer eligible b ased on patient's age to complete this topic
--- OUTSIDE RECORDS SUMMARY | 2024-07-25 09:38 | XMS_ITS | Encounter Summary ---
Author Organization [employer] Address [address] [facility] [address] [place] [address] Care Team Providers Care Shell Coremaker Name Role Phone Deidre Escobar Primary Care Provider [phone] Encounter Details Date Type Department Care Team (Late st Contact Info) Description 02/22/2023 Orders Only [facility] MEDICINE [address] [place], [place] [phone] Provider, [place] Social History Tobacco Use Types Packs/Day Years Used Date Smoking Tobacco: Never Passive Smoke Exposure: Never Smokeless Tobacco: Never Alcohol Use Standard Drinks/Week Comments Not Currently 0 (1 standard drink = 0.6 oz pur e alcohol) Depression Answer Date Recorded Patient Health Questionnaire-9 Score 10 11/16/2022 Depression Answer Date Recorded Patient Health Questionnaire-2 Score 4 11/16/2022 Comments Unknown Sex and Gender Information Value [...] Description 09/05/2024 2:15 PM EDT Office Visit [facility] MEDICINE [address] [place], [place] [phone] Deidre Escobar ANP [address] [place], [place] [phone] documented as of this encounter Procedures Procedure Name Priority Date/Time Associated Diagnosis Comments HM PAP/HPV Routine 05/13/2021 documented in this encounter Results * Hm Pap Smear (05/13/2021) us Historical Provider HEALTH MAINTENANCE Final Result documented in this encounter Visit Diagnoses Not on filedocumented in this encounter Additional Health Concerns Assessment Noted Time PHQ-9 Depression Total Score: 10 023 9:46 AM EDT documented as of this encounter Care Teams Shell Coremaker Relationship Specialty Start Date End Date Deidre Escobar ANP [address] [place] [id number] PCP - General Family Medicine 06/01/22 documented as of this encounter
== END 2024-07-25 09:06 | disposition home or self-care (01) ==
LOC: HO.US 09:05
PROVIDERS: PCP Nurse Practitioner Primary Care; Visit Provider Urology
DX: N20.0 Calculus of kidney (principal)
CPT/HCPCS: 76775

== ENCOUNTER → 2024-07-25 09:09 | Outpatient (BNV) | payer MEDICAID, SELFPAY | PROVIDERS: PCP Nurse Practitioner Primary Care; Visit Provider Radiology Diagnostic Radiology | DX: N20.0 Calculus of kidney (principal); R93.41 Abnormal radiologic findings on diagnostic imaging of renal pelvis, ureter, or bladder | CPT/HCPCS: 76775 ==

== ENCOUNTER 2024-08-21 09:37 | Outpatient (AMB) | payer MEDICAID, SELFPAY ==
--- NOTE | 2024-08-21 10:01 | A.OFFVIS_ITS ---
Intake Visit Reasons: 7m/US Intake Note: Patient presents to office today for a 7 month follow up/US Urology Medication:vesicare Antibiotic Allergy:simvastatin Blood Thinner:none Business Data Analyst Required: Yes Business Data Analyst Name: [id number]--Xmwi Information Interpreted: non-clinical & clinical Allergies simvastatin Allergy (Unknown, Verified 08/21/24 10:02) nausea, vomiting and dizziness HPI Comments Details: 08/21/24--49-year-old female presenting with a follow-up for left kidney stones. Diagnosed with small, stable stones on a renal ultrasound, the patient reports experiencing localized back pain, though not radiating to the front. UA - today, there is no hematuria or indication for urinary infection present. Pain description implies a potential musculoskeletal issue rather than discomfort directly from the stones. The patient uses Solifenacin for bladder control intermittently due to dry mouth as a side effect. Discussion with the patient confirmed the stability of the small left kidney stones, as indicated by the ultrasound. Alternatives, such as Mirabegron, were introduced as potential options without the side effect of dry mouth. A further follow-up in 10 months was agreed upon to reassess the kidney condition. Results: - Renal Ultrasound (07/22/24): Stable, small left kidney stones - Urine Analysis: No hematuria, normal findings, no signs of infection 01/23/24--Here for cysto. Ultrasound results reviewed with the patient. Renal ultrasound 01/11/2024--images reviewed left kidney small cyst, small kidney stones left lower pole 3 mm upper pole 4 mm. The patient states she has improvement in urinary symptoms on the VESIcare. She states she has been taking VESIcare 10 mg every other day. Cystoscopy findings: No suspicious bladder lesions. Kidney stones are small we will continue to monitor. Follow-up in 6 months. 12/12/23--Radha is a 48-year-old female who is here as a new patient evaluation for microscopic hematuria. Radha was referred by Gynecology. The patient complains of urinary frequency and urgency. She has urinary leakage associated with coughing. She wears a pad daily. The patient complains of left-sided back pain. And 0 8 it is not is concerned about her kidneys. In review of her chart she had a CT abdomen and pelvis in 05/16/2023 kidneys were normal. I will check a renal ultrasound and discussed follow-up office cystoscopy. Urine will be sent for cytology. I will trial VESIcare 10 mg daily. PFSH Medical History Elevated cholesterol Helicobacter pylori (H. pylori) Irritable bowel syndrome Gastroesophageal reflux disease Abnormal uterine bleeding (AUB) Heavy menses Diabetes mellitus Surgical History History of esophagogastroduodenoscopy (EGD) Hx of colonoscopy H/O LEEP Family History Father Diabetes HTN (hypertension) Mother Diabetes Paternal Grandfather Diabetes Maternal Grandfather Colon cancer Social History Household Members: Spouse and Children Housing: House Alcohol intake: never Patient Tobacco Use Status: Never used Tobacco Current occupational status: unemployed Sexual orientation: Straight/Heterosexual Gender identity: Female Female Reproductive History Menstrual Age of Menarche: 10 Review of Systems Const All systems reviewed & are unremarkable except as noted in HPI and below Reports no additional complaints Eyes Reports no additional complaints ENT Reports no additional complaints Card Reports no additional complaints Resp Reports no additional complaints GI Reports no additional complaints Reports as per HPI Musc Reports no additional complaints Skin/Breast Reports system reviewed and no additional complaints, except as documented Neuro Reports no additional complaints Psych Reports no additional complaints Endo Reports no additional complaints Edu/Lymph Reports no additional complaints Aller/Immun Reports no additional complaints Results AMB Urinalysis, Automated UA Leukoctes 0 [place]/uL Last Edit by Macy Ibarra on 08/21/24 10:56 UA Nitrite Negative Last Edit by Macy Ibarra on 08/21/24 10:56 UA Urobilinogen 0.2 mg/dL Last Edit by Macy Ibarra on 08/21/24 10:56 UA Protein 0 mg/dL Last Edit by Macy Ibarra on 08/21/24 10:56 UA pH 6.0 Last Edit by Macy Ibarra on 08/21/24 10:56 UA Blood 0 Destin/uL Last Edit by Macy Ibarra on 08/21/24 10:56 UA Specific Loco 1.010 Last Edit by Macy Ibarra on 08/21/24 10:56 UA Ketone Negative Last Edit by Macy Ibarra on 08/21/24 10:56 UA Bilirubin 0 mg/dL Last Edit by Macy Ibarra on 08/21/24 10:56 UA Glucose 1000 mg/dL Last Edit by Macy Ibarra on 08/21/24 10:56 Results Reviewed Results Reviewed: Laboratory Last Values Urine pH (Auto) 6.0 08/21/24 10:41 Specific Loco (Auto) 1.010 08/21/24 10:41 Urine Protein (Auto) 0 mg/dL 08/21/24 10:41 Glucose (UA)(Auto) 1000 mg/dL 08/21/24 10:41 Urine Ketones (Auto) Negative 08/21/24 10:41 Urine Blood (Auto) 0 [place]in/uL 08/21/24 10:41 Urine Nitrite (Auto) Negative 08/21/24 10:41 Urine Bilirubin (Auto) 0 mg/dL 08/21/24 10:41 Urine Urobilinogen (Auto) 0.2 mg/dL 08/21/24 10:41 Leukocyte Esterase (Auto) 0 [place]/uL 08/21/24 10:41 Date of Service: 07/25/24 US renal with Color Doppler Comparison: None Findings: Right kidney normal size and echotexture, 11.7 cm length. No hydronephrosis calculus or mass. Normal color flow. Mild pelvicaliectasis. Probable vascular reflectors. Left kidney normal size and echotexture, 13.4 cm length. Mild hydronephrosis Normal color flow. Incidental parapelvic cyst midpole measuring 10 x 10 x 9 mm. Nonobstructing caliceal stones lower pole measuring 2 x 2 x 1 mm and midpole measuring 2 x 2 x 2 mm. Bilateral ureteral jets were demonstrated within the urinary bladder which excludes complete obstructive uropathy. Impression: 1. Mild pelvicaliectasis on the right without definite calculi. 2. Nephrolithiasis on the left. Mild left hydronephrosis. Incidental parapelvic cyst left kidney. 3. Ureteral jets were demonstrated in the urinary bladder which excludes complete obstructive uropathy. Renal ultrasound 01/11/2024--images reviewed left kidney small cyst, small kidney stones left lower pole 3 mm upper pole 4 mm Date of Service: 05/03/23 CT ABDOMEN AND PELVIS WITH CONTRAST CLINICAL INFORMATION: Right lower quadrant pain. COMPARISON: 03/19/2021 TECHNIQUE: Multidetector volumetric images were obtained from the superior aspect of the liver through the pubic symphysis following administration 85 mL of Omnipaque 350 intravenous contrast. Sagittal and coronal reformatted images were obtained on the technologist's workstation. Oral contrast: No This CT examination was performed using dose optimization techniques as appropriate, variously including the following: *Automated exposure control *Adjustment of mA and/or kV according to patient size (this includes techniques or standardized protocols for targeted exams where dose is matched to indication/reason for exam; i.e. extremities or head) *Use of iterative reconstruction technique DLP: 470 mGy-cm FINDINGS: LUNG BASES: The visualized lung bases are unremarkable. LIVER, GALLBLADDER, AND BILIARY TREE: The liver is decreased in attenuation. No focal hepatic lesion or biliary ductal dilatation is present. The gallbladder is unremarkable with no evidence of radiopaque gallstones, gallbladder wall thickening, or obvious pericholecystic inflammatory changes. PANCREAS: Unremarkable. SPLEEN: Unremarkable. ADRENAL GLANDS: Unremarkable. KIDNEYS AND URETERS: The kidneys are normal in size, shape, and attenuation. No hydronephrosis, hydroureter, or calculi seen. No perinephric stranding. BLADDER: Unremarkable. GASTROINTESTINAL TRACT: The small and large bowel are unremarkable. The appendix is unremarkable. ABDOMINAL WALL: No significant hernia is appreciated. LYMPH NODES: No bulky lymphadenopathy. VASCULAR: Normal caliber abdominal aorta. PELVIC VISCERA: Enlarged globular heterogeneous uterus with pedunculated fibroid measuring 3.3 x 3.5 x 3.9 cm. OSSEOUS STRUCTURES: No destructive bone lesions. IMPRESSION: Finding suggestive of uterine adenomyosis. Further characterization with MRI pelvis is recommended. Subserosal fibroid measures 3.3 x 3.5 x 3.9 cm. Hepatic steatosis. Assessment & Plan Assessment & Plan (1) Urinary frequency: Code(s): R35.0 - Frequency of micturition Category: Medical (2) YA (stress urinary incontinence, female): Code(s): N39.3 - Stress incontinence (female) (male) Category: Medical (3) Kidney stone on left side: Code(s): N20.0 - Calculus of kidney Category: Medical (4) OAB (overactive bladder): Code(s): N32.81 - Overactive bladder Category: Medical Plan Plan - Continue current management for kidney stones and monitor for new symptoms. - Take Mirabegron 50 mg as directed once obtained for bladder control. To replace vesicare - Report any difficulties in obtaining medication to nurse. - Schedule follow-up appointment in 10 months for kidney reevaluation. Renal US prior - Contact the office if you experience any changes in symptoms or additional concerns. Orders: Orders AMB Urinalysis Automated Today Z13.9 - Encounter for screening, unspecified Medications: New mirabegron ER (Myrbetriq) 50 mg PO DAILY 30 tabs 3RF Patient Instructions: The patient had an opportunity to ask questions regarding treatment plan. The patient expressed understanding and agreement with the above treatment plan. The patient is aware they should contact our office by phone for worsening of their current condition or the appearance of new symptoms. Compliance is encouraged with any medications and followup testing that is ordered. It is a privilege to be allowed the opportunity to participate in the urologic care of your patient. If you have any questions or concerns regarding treatment for the above conditions please do not hesitate to contact me. The office telephone contact is [phone]. This note is constructed in part using voice recognition software. While every effort has been made to ensure accuracy campaign specialist errors may have been included. Yours sincerely, Jose A Baptiste MD Scribe Plan - Not visible on output: Patient was informed and verbally consented to the use of an ambient scribe for clinic note documentation during this visit. Coding Level of Care Code Est Pt Level 4 (35623) Diagnoses Urinary frequency R35.0 YA (stress urinary incontinence, female) N39.3 Kidney stone on left side N20.0 OAB (overactive bladder) N32.81
== END 2024-08-21 10:42 | disposition home or self-care (01) ==
LOC: HO.HUSH 09:38
PROVIDERS: PCP Nurse Practitioner Primary Care; Visit Provider Urology
DX: R35.0 Frequency of micturition (principal); N39.3 Stress incontinence (female) (male); N20.0 Calculus of kidney; N32.81 Overactive bladder; Z13.9 Encounter for screening, unspecified
CPT/HCPCS: 99214

== ENCOUNTER → 2024-08-21 09:37 | Outpatient (BNVA) | payer MEDICAID, SELFPAY | PROVIDERS: PCP Nurse Practitioner Primary Care; Visit Provider Urology | DX: N32.81 Overactive bladder (principal); N39.3 Stress incontinence (female) (male); N20.0 Calculus of kidney | CPT/HCPCS: 81003; 99212 ==

== ENCOUNTER 2024-09-29 15:52 | Outpatient (AMB) | payer MEDICAID, SELFPAY ==
[2024-09-29 15:57] VITALS: BP 114/66; PULSE 90; O2SAT 99; BMI 25.3
--- NOTE | 2024-09-29 15:57 | A.OFFVIS_ITS ---
Vital Signs 09/29/24 15:57 Height 5 ft 5 in Weight 152 lb BMI 25.3 BP 114/66 Blood Pressure Location Rt brachial Position Sitting Pulse 90 Pulse Source Pulse Oximeter Pulse Oximetry (%) 99 Oxygen Delivery Method Room Air Intake Visit Reasons: 3 mo f/u Intake Note: ESTABLISHED PATIENT for GERD, constipation, epigastric pain mgmt. 3 mos FUV. Chief Complaint; Pt denies any GI sx or concerns at this time. Pt does request refill of PPI at this time. NO additional concerns. Casting House Laborer Required: Yes Casting House Laborer Services: Casting House Laborer Present Casting House Laborer Name: [place] [id number] Information Interpreted: clinical only Accompanied by: Self / Same As Patient Allergies simvastatin Allergy (Unknown, Verified 09/29/24 16:03) nausea, vomiting and dizziness Medication List - Last Reconciled 09/29/24 by SIGIFREDO GuzmánP- atorvastatin 40 mg PO DAILY bisacodyl 10 mg PO BEDTIME blood sugar diagnostic (FreeStyle Precision Abdelrahman Strips) As directed duloxetine 20 mg PO DAILY empagliflozin (Jardiance) 25 mg PO QAM famotidine (Pepcid) 20 mg PO BEDTIME flash glucose sensor (FreeStyle Robby 2 Sensor kit) As directed glipizide ER 5 mg PO DAILY insulin glargine (Lantus Solostar U-100 Insulin) 20 units subcut BEDTIME lisinopril 2.5 mg PO DAILY medroxyprogesterone (Provera) 10 mg PO DAILY 10 days mirabegron ER (Myrbetriq) 50 mg PO DAILY pantoprazole 40 mg PO DAILY pen needle, diabetic (Pentips Pen Needle) As directed sennosides (Natural Senna Laxative) 17.2 mg (2 x 8.6 mg) PO BEDTIME solifenacin (Vesicare) 10 mg PO DAILY HPI HPI 3 mo f/u : Details: LAST VISIT: Helicobacter pylori (H. pylori) Gastroesophageal reflux disease Irritable bowel syndrome Constipation Plan Patient will continue taking pantoprazole and will start taking famotidine at bedtime. Avoid dietary triggers and late night snacking. Staying upright for minimum 3 hours after meals discussed with patient. Patient will continue taking senna. Patient was encouraged to take it daily or every other day. Discontinue or stop for day or 2 if diarrhea. Patient was encouraged to take fiber with pre and probiotics to regulate her bowels. Colonoscopy in 10 years in asymptomatic adult, sooner if clinically necessary. Patient will follow-up in 3 months. She will call us if she will have worsening symptoms. Patient is agreeable to this plan and verbalizes understanding of instructions. She was given the opportunity to ask questions and all questions answered. ? Thank you for allowing me to participate in her care Medications New famotidine (Pepcid) 20 mg PO BEDTIME 30 tabs 3RF K21.9 Refilled sennosides (Natural Senna Laxative) 17.2 mg (2 x 8.6 mg) PO BEDTIME 180 tabs 3RF constipation K59.00 TODAY'S VISIT: Patient is here today for follow-up. Patient reports that she has been doing well since last visit. Patient reports that she is taking pantoprazole in the morning half an hour before breakfast and famotidine at bedtime. Patient denies any acid reflux, dyspepsia, dysphagia or odynophagia. Patient reports that she had to stop taking Ozempic as it was causing epigastric pain. Patient currently is on Lantus Jardiance and glipizide. Patient reports that she is moving her bowels well. Patient takes Senokot daily and states that she moves her bowels well. Occasionally maybe once a week she will take additional 1 Dulcolax to help her empty better. Patient denies melena, hematochezia, unintentional weight loss or ribbon like stools. Denies any GI concerning symptoms today. Patient reports to have good appetite. [facility] Medical History Elevated cholesterol Helicobacter pylori (H. pylori) Irritable bowel syndrome Gastroesophageal reflux disease Abnormal uterine bleeding (AUB) Heavy menses Diabetes mellitus Surgical History History of esophagogastroduodenoscopy (EGD) Hx of colonoscopy H/O LEEP Family History Father Diabetes HTN (hypertension) Mother Diabetes Paternal Grandfather Diabetes Maternal Grandfather Colon cancer Social History Household Members: Spouse and Children Housing: House Alcohol intake: never Patient Tobacco Use Status: Never used Tobacco Current occupational status: unemployed Sexual orientation: Straight/Heterosexual Gender identity: Female Female Reproductive History Menstrual Age of Menarche: 10 Assessment & Plan Assessment & Plan (1) Gastroesophageal reflux disease: Code(s): K21.9 - Gastro-esophageal reflux disease without esophagitis Category: Medical Qualifiers: Esophagitis presence: esophagitis presence not specified Qualified Code(s): K21.9 - Gastro-esophageal reflux disease without esophagitis (2) Irritable bowel syndrome: Code(s): K58.9 - Irritable bowel syndrome, unspecified Category: Medical Qualifiers: Irritable bowel syndrome type: with constipation Qualified Code(s): K58.1 - Irritable bowel syndrome with constipation (3) Constipation: Code(s): K59.00 - Constipation, unspecified Qualifiers: Constipation type: slow transit constipation Qualified Code(s): K59.01 - Slow transit constipation (4) History of Helicobacter pylori infection: Code(s): Z86.19 - Personal history of other infectious and parasitic diseases Plan Patient reports symptoms of acid reflux are suppressed. Continue taking pantoprazole and famotidine. Avoid dietary triggers and late night snacking. Staying upright for minimum 3 hours after meals discussed with patient. Continue taking senna. Increase fluid intake and activity to promote better bowel motility. Patient will follow-up in 6 months, sooner on as needed basis. She is agreeable to this plan and verbalizes understanding of instructions. She was given the opportunity to ask questions and all questions answered. Thank you for allowing me to participate in her care Medications: Refilled famotidine (Pepcid) 20 mg PO BEDTIME 90 tabs 3RF K21.9 - Gastro-esophageal reflux disease without esophagitis pantoprazole take one tablet half an hour before breakfast 40 mg PO DAILY 90 tabs 3RF K21.9 - Gastro-esophageal reflux disease without esophagitis Coding Level of Care Code Est Pt Level 3 (33870) Diagnoses Gastroesophageal reflux disease, unspecified whether esophagitis present K21.9 Esophagitis presence: esophagitis presence not specified Irritable bowel syndrome with constipation K58.1 Irritable bowel syndrome type: with constipation Slow transit constipation K59.01 Constipation type: slow transit constipation History of Helicobacter pylori infection Z86.19 Time Spent (min) 25 Comment 15 minutes spent with patient and additional 10 minutes spent reviewing her records
--- OUTSIDE RECORDS SUMMARY | 2024-09-29 17:19 | XMS_ITS | Clinical Summary ---
Author Organization [facility] Address [address] [place] [address] Care Team Providers Care Business Intelligence Reporting Analyst Name Role Phone Unavailable Primary Care Provider Unavailabl e Social History Tobacco Use Types Packs/Day Years Used Date Smoking Tobacco: Never Assessed Comments Unknown Sex and Gender Information Value Date Recorded Sex Assigned at Not on file Legal Sex Female 9:25 AM EDT Gender Identity Not on file Sexual Orientation [...]
--- OUTSIDE RECORDS SUMMARY | 2024-09-29 17:19 | XMS_ITS | Encounter Summary ---
Author Organization [employer] Address [address] [facility] [address] [place] [address] Care Team Providers Care Rn Occupational Name Role Phone Shawn Deidre MCLAIN Primary Care Provider [phone] Encounter Details Date Type Department Care Team ([facility] st Contact Info) Description 02/22/2023 Orders Only [facility] [address] [place] [address] Provider, Historical, Social History Tobacco Use Types Packs/Day Years [...] as of this encounter Plan of Treatment Not on file documented as of this encounter Procedures Procedure [...] documented as of this encounter Care Teams Rn Occupational Relationship Specialty Start Date End Date Deidre Escobar ANP [address] [place] [address] PCP - General Family Medicine 06/01/22 documented as of this encounter
--- OUTSIDE RECORDS SUMMARY | 2024-09-29 17:19 | XMS_ITS | Clinical Summary ---
Author Organization [employer] Address [address] [facility] 7t [place] [address] Care Team Providers Care Refuse And Recycling Worker Name Role Phone Ramiro Lowe RAYNE Primary Care Provider [phone] Allergies No known active allergies Medications glucose blood (FREESTYLE LITE) test stripIndications :Hyperlipidemia associated with type 2 diabetes mellitus (CMS/HCC) Test blood sugar three times daily 100 each 9 022 Active TRUEplus Lancets 33G miscIndications: Type 2 diabetes mellitus with hyperlipidemia (CMS/HCC) (CMS/[facility]) TEST BLOOD SUGAR THREE TIMES DAILY 100 each 11 023 Active Blood Glucose Monitoring Suppl (FreeStyle Lite) w/Device kitIndications:T ype 2 diabetes mellitus with hyperlipidemia (CMS/HCC) (CMS/[facility]) 1 each if needed in the morning, at noon, in the evening, and at bedtime (symptoms). 1 kit 023 Active omeprazole (PriLOSEC) [address] Mullen ns:Gastroesophag eal reflux disease, unspecified whether esophagitis present TAKE 1 CAPSULE BY MOUTH EVERY DAY BEFORE A MEAL 90 capsule 023 Active ibuprofen 600 MG tabletIndication s:Acute pain of right shoulder Take 1 tablet as needed with food up to TID for pain 90 tablet 023 Active LORazepam (Ativan) 1 MG tabletIndication s:Anxiety Take 0.5-1 tab as needed 30 minutes before procedure. May repeat once after 30 minutes if insufficient response 4 tablet 024 Active Continuous Glucose Project Estimator (FreeStyle Robby 2 Phelps) deviceIndication s:Type 2 diabetes mellitus with hyperlipidemia (CMS/HCC) ([facility]) Scan sensor every 8 hours 1 each Active Continuous Glucose Sensor (FreeStyle Robby 2 Sensor) miscIndications: Type 2 diabetes mellitus with hyperlipidemia (CMS/HCC) ([facility]) Apply 1 sensor every 14 days 2 each Active glucose blood (FreeStyle Precision Abdelrahman Test) test stripIndications :Type 2 diabetes mellitus with hyperlipidemia (CMS/HCC) ([facility]) Use to test blood sugar 3 times daily 100 each 12 024 2024 Active Jardiance 25 MGIndications:Ty pe 2 diabetes mellitus with hyperlipidemia ([facility]/HCC) ([facility]) TAKE 1 TABLET BY MOUTH EVERY MORNING [...] tabletIndication s:Type 2 diabetes mellitus with hyperlipidemia ([facility]/HCC) ([facility]) TAKE 1 TABLET BY MOUTH ONCE DAILY WITH A MEAL DO NOT BREAK, CRUSH, DISSOLVE OR CHEW 90 tablet 1 Active Lantus SoloStar 100 UNIT/ML penIndications:T ype 2 diabetes mellitus with hyperlipidemia ([facility]/HCC) ([facility]) INJECT 20 UNITS SUBCUTANEOUSLY AT BEDTIME 15 mL 3 Active lisinopril 2.5 MG tabletIndication s:Type 2 diabetes mellitus with hyperlipidemia (CMS/HCC) ([facility]),Essent ial hypertension TAKE 1 TABLET BY MOUTH EVERY DAY 90 tablet 1 024 Active Ozempic, 0.25 or 0.5 MG/DOSE, 2 MG/3ML solution pen-injectorIndi cations:Type 2 diabetes mellitus with hyperlipidemia (CMS/HCC) (CMS/[facility]) INJECT 0.5 MG SUBCUTANEOUSLY EVERY 7 DAYS IN THE ABDOMEN, THIGHS, OR UPPER ARM, ROTATE INJECTION SITES. 3 mL 2 024 Active Pentips Generic Pen [place] 32G X 4 MM miscIndications: Type 2 diabetes mellitus with hyperlipidemia (CMS/HCC) (CMS/HCC),Type 2 diabetes mellitus with other specified complication, with long-term current use of insulin (CMS/[facility]) USE EVERY DAY 100 each 5 025 Active atorvastatin (Lipitor) 40 MG tabletIndication s:Type 2 diabetes mellitus with hyperlipidemia (CMS/HCC) (CMS/HCC),High cholesterol TAKE 1 TABLET BY MOUTH ONCE DAILY 90 tablet 3 025 Active DULoxetine (Cymbalta) [address] capsuleIndicatio ns:Fibromyalgia TAKE 1 CAPSULE BY MOUTH EVERY DAY 30 capsule 1 025 Active atorvastatin (Lipitor) 40 MG tabletIndication s:High cholesterol Take 1 tablet (40 mg) by mouth in the morning. 90 tablet 023 Discontinued(R eorder (will not trigger notification to Pharmacy)) atorvastatin (Lipitor) 40 MG tabletIndication s:Type 2 diabetes mellitus with hyperlipidemia (CMS/HCC) (CMS/[facility]),High cholesterol Take 1 tablet (40 mg) by mouth Once daily. 90 tablet 3 024 2024 Discontinued insulin pen needle (Pentips) 32G x 4 mm miscIndications: Type 2 diabetes mellitus with hyperlipidemia (CMS/HCC) (CMS/HCC),Type 2 diabetes mellitus with other specified complication, with long-term current use of insulin ([facility]) USE EVERY DAY 100 each 3 024 2024 Discontinued DULoxetine (Cymbalta) [address] capsuleIndicatio ns:Fibromyalgia TAKE 1 CAPSULE BY MOUTH EVERY DAY 30 capsule 1 025 2024 Discontinued Active Problems Problem Noted Date Diagnosed Date Fibromyalgia 08/15/2022 Type 2 diabetes mellitus with hyperlipidemia (CM S/HCC) 08/15/2022 Essential hypertension 06/15/2022 Encounters Date Type Department Care Team Description 09/05/2024 Telephone [facility] [address] [place] [phone] Ramiro Lowe ANP No Show 09/04/2024 Telephone [facility] [address] [place] [address] Atiya Nava MA chart prep 09/04/2024 Refill [facility] [address] [place] [address] Ramiro Lowe ANP Fibromyalgia 08/31/2024 Refill [facility] [address] [place] [address] Ramiro Lowe ANP Type 2 diabetes mellitus with hyperlipidemia (CMS/HCC) (CMS/HCC); Type 2 diabetes mellitus with other specified complication, with long-term current use of insulin (CMS/HCC); High cholesterol 08/13/2024 7:00 PM EDT Office Visit [facility] [address] [place] [phone] Desean Colorado MD Influenza (Primary Dx); Cough in adult patient 08/08/2024 Population Health Risk Score [facility] () Department [address] [place] [phone] Provider, Population Health Generic 07/25/2024 Orders Only [facility] External Provider, [facility] 07/24/2024 Telephone [facility] [address] [place] [address] Marcia Villegas, REED Results 07/02/2024 Refill [facility] [address] [place] [address] Ramiro Lowe ANP Fibromyalgia from Last 3 Months Immunizations Name Administration [...] Sign Reading Time Taken Comments Blood Pressure 136/78 08/13/2024 6:30 PM EDT Pulse 103 08/13/2024 6:30 PM EDT Temperature 36.4 ??C (97.6 ??F) 08/13/2024 6:30 PM ED T Respiratory Rate 20 08/13/2024 6:30 PM EDT Oxygen Saturation 99% 08/13/2024 6:30 PM EDT Inhaled Oxygen Concentration - - Weight 68.8 kg (151 lb 9.6 oz) 08/13/2024 6:30 P M EDT Height 165.1 cm (5' 5 ) 08/13/2024 6:30 PM EDT Body Mass Index 25.23 08/13/2024 6:30 PM EDT Plan of Treatment Health Maintenance Due Date [...] 11/14/2022 Colorectal Cancer Screening 11/15/2023 COVID-19 Vaccine ( season) 2024 10/20/2020, 09/22/2020 Influenza Vaccine (#1) 2024 , 04/18/2021, 04/25/2018, Additional history exists Diabetes: Foot Exam 02/24/2024 02/23/2023 Diabetes: Urine Protein Screening 04/05/2024 04/05/2023, 03/04/2021 Diabetes: Hemoglobin A1C 04/23/20242 024, 10/25/2023, 07/09/2023, Additional history exists Mammogram 12/13/2024 12/14/2023, 0701/2024, 12/04/2022 SDOH Screening 01/03/2025 01/04/2024 Depression Screening [...] Procedure Name Priority Date/Time Associated Diagnosis Comments POCT INFLUENZA B Routine 08/13/2024 6:41 PM EDT Cough in adult patient POCT INFLUENZA A Routine 08/13/2024 6:41 PM EDT Cough in adult patient POCT RAPID COVID ANTIGEN Routine 08/13/2024 6:41 PM EDT Cough in adult patient US RENAL BI Routine 07/25/2024 11:24 AM EST HEPATITIS C AB W/REFL TO [...] HM COLONOSCOPY Routine 11/14/2022 2:16 PM EDT ZZZ HISTORICAL HPV E6/E7 RFLX PARTHA 16 18/45 Routine 05/13/2021 2:07 PM EST HM PAP/HPV Routine 05/13/2021 from Last 3 Months or Most Recently Relevant to Health Maintenance Results * POCT Rapid COVID Ag (08/13/2024 6:41 PM EDT) Rapid COVID Ag Negative QC Media Lot # [id number] Lot# Expiration Date Swab 08/13/2024 6:41 PM EDT Desean Brunson MD POINT OF CARE TEST ENTER/EDIT ORDERABLES Final Result * (ABNORMAL) POCT Influenza B manually resulted (08/13/2024 6:41 PM EDT) Rapid Influenza B Ag Positive( A) Negative, Indeterminate QC Media Lot # [id number] Lot# Expiration Date 6 Swab 08/13/2024 6:41 PM EDT Desean Brunson MD POINT OF CARE TEST ENTER/EDIT ORDERABLES Final Result * POCT Influenza A manually resulted (08/13/2024 6:41 PM EDT) Rapid Influenza A Ag Negative Negative, Indeterminate QC Media Lot # [id number] Lot# Expiration Date ,026 Swab Nasopharyngeal structure / Unknown 08/13/2024 6:41 PM EDT Desean Brunson MD POINT OF CARE TEST ENTER/EDIT ORDERABLES Final Result * US RENAL BI (07/25/2024 11:24 AM EST) Anatomical Region Laterality Modality Abdomen Ultrasound 07/25/2024 11:2 4 AM EST Narrative 07/25/2024 11:27 AM EST ? [facility] ?[address] ?[place] [address] ? Ultrasound Report ? Signed ? Patient: Wellington,Radha ?MR#: [id number] ?? [id number] ? : 1975 ?Acct:[id number] ? Age/Sex: 49 / F ?ADM Date: 07/25/24 ? Loc: HO.US ? Attending Dr: Jose A Baptiste MD ? Ordering Physician: Jose A Baptiste MD ?? Date of Service: 07/25/24 ?? Procedure(s): US renal BI ?? Accession Number(s): [id number] ? cc: Jose A Baptiste MD; RAMIRO LOWE NP ? CLINICAL HISTORY: N20.0 - Calculus of kidney ? US renal with Color Doppler ? Comparison: None ? Findings: ?? Right kidney normal size and echotexture, 11.7 cm length. No ?? hydronephrosis calculus or mass. Normal color flow. Mild pelvicaliectasis. ?? Probable vascular reflectors. ?? Left kidney normal size and echotexture, 13.4 cm length. Mild ?? hydronephrosis Normal color flow. Incidental parapelvic cyst midpole ?? measuring 10 x 10 x 9 mm. Nonobstructing caliceal stones lower pole ?? measuring 2 x 2 x 1 mm and midpole measuring 2 x 2 x 2 mm. ? Bilateral ureteral jets were demonstrated within the urinary bladder which ?? excludes complete obstructive uropathy. ? Impression: ?? 1. Mild pelvicaliectasis on the right without definite calculi. ?? 2. Nephrolithiasis on the left. Mild left hydronephrosis. Incidental ?? parapelvic cyst left kidney. ?? 3. Ureteral jets were demonstrated in the urinary bladder which excludes ?? complete obstructive uropathy. ? This document has been electronically signed by: Maximo [place] MD on ?? 07/25/2024 11:24:39 ? Dictated By: ?Maximo [place] MD ? Signed By: ?<Electronically signed by Maximo [place] MD in OV> ?07/25/24 1126 ? DD/ 1124 ? TD/TT: 07/25/24 1124 ? Adult Neuropsychologist: ? Procedure Note Donrhettelmer, Image - 07/25/2024 [place] [id number] Ultrasound Report Signed Patient: Radha WellingtonMR#: [id number] : 1975Acct:[id number] Age/Sex: 49 / FADM Date: 07/25/24 Loc: HO.US Attending Dr: Jose A Baptiste MD Ordering Physician: Jose A Baptiste MD Date of Service: 07/25/24 Procedure(s): US renal BI Accession Number(s): [id number] cc: Jose A Baptiste MD; RAMIRO LOWE NP CLINICAL HISTORY: N20.0 - Calculus of kidney US renal with Color Doppler Comparison: None Findings: Right kidney normal size and echotexture, 11.7 cm length. No hydronephrosis calculus or mass. Normal color flow. Mild pelvicaliectasis. Probable vascular reflectors. Left kidney normal size and echotexture, 13.4 cm length. Mild hydronephrosis Normal color flow. Incidental parapelvic cyst midpole measuring 10 x 10 x 9 mm. Nonobstructing caliceal stones lower pole measuring 2 x 2 x 1 mm and midpole measuring 2 x 2 x 2 mm. Bilateral ureteral jets were demonstrated within the urinary bladder which excludes complete obstructive uropathy. Impression: 1. Mild pelvicaliectasis on the right without definite calculi. 2. Nephrolithiasis on the left. Mild left hydronephrosis. Incidental parapelvic cyst left kidney. 3. Ureteral jets were demonstrated in the urinary bladder which excludes complete obstructive uropathy. This document has been electronically signed by: Maximo oMra MD on 07/25/2024 11:24:39 Dictated By: Maximo [place] MD Signed By: <Electronically signed by Maximo [place] MD in OV> 07/25/24 1126 DD/ 1124 TD/TT: 07/25/24 1124 Adult Neuropsychologist: [facility] External Provider IMG US PROCEDURES Final Result * Hepatitis C Antibody with Reflex to HCV, RNA, Quantitative, Real-Time PCR (01/30/2024 8:38 AM EDT) Hepatitis C Antibody Nonreactive Nonreactive [facility] Comment:Antibodies to HCV no t detected; does not exclude early acuteHCV infection. Blood Venous blood specimen / Unknown 01/30/2024 8:38 AM EDT 01/30/2024 10:56 AM EDT Result [facility] LAB BLOOD ORDERABLES Final Resul t [facility] [address] [place] [phone] * HIV-1/2 Antigen and Antibodies, Fourth Generation, with Reflexes (01/30/2024 8:38 AM EDT) HIV AB/AG Nonreactive Nonreactive [facility] Comment:HIV-1 p24 Ag and/or HIV-1/HIV-2 Ab not detected.A test result that is nonreactive does not exclude thepossibility of exposure to or infection with HIV-1 and/orHIV-2. Nonreactive results in this assay for individualswith prior exposure to HIV-1 and/or HIV-2 may be due toantigen and antibody levels that are below the limit ofdetection of this assay.The [employer] HIV Ag/Ab Combo assay result andsupplemental assay results should be interpreted inconjunction with the patient's clinical presentation,history and other laboratory results. If the results areinconsistent with clinical evidence, additional testing issuggested to confirm the result. Blood Venous blood specimen / Unknown 01/30/2024 8:38 AM EDT 01/30/2024 10:56 AM EDT Ramiro Lowe [facility] LAB BLOOD ORDERABLES Final Resul t [facility] [address] [place] [address] [phone] * (ABNORMAL) Lipid Panel, Standard (01/30/2024 8:38 AM EDT) Triglycerides 118 <150 mg/dL [facility] Comment:Desirable Triglyceri de: less than 150 mg/dLBorderline High Triglyceride 150-199 mg/dLHigh Triglyceride: 200-499 mg/dLVery High Triglyceride: greater than or equal to 5OO mg/dL Cholesterol 215(H) <200 mg/dL [facility] Comment:Desirable Cholestero l: less than 200 mg/dLBorderline High Cholesterol: 200-239 mg/dLHigh Cholesterol: greater than 239 mg/dL LDL Cholesterol Calculated 140(H) <100 mg/dL [facility] Comment:Desirable LDL: less than 100 mg/dLNear Optimal/Above Optimal LDL: 110- 129 mg/dLBorderline High LDL: 130-159 mg/dLHigh LDL: 160-189 mg/dLVery High LDL: greater than or equal to 190 mg/dL HDL Cholesterol 52 >40 mg/dL [facility] Comment:Desirable HDL: great er than 40 mg/dL Note: This HDL assay may give artificially low results in patients with liver disease. Blood Venous blood specimen / Unknown 01/30/2024 8:38 AM EDT 01/30/2024 10:56 AM EDT Ramiro Lowe ANP LAB BLOOD ORDERABLES Final Resul t [facility] [address] [place] [phone] [phone] * (ABNORMAL) POCT HGB A1C (01/22/2024 1:51 PM EDT) Hemoglobin A1C 8.6(A) 4.0 - 6.0 % QC Media Lot # [id number] Lot# Expiration Date Blood 01/22/2024 1:51 PM EDT us Ramiro Lowe RAYNE POINT OF CARE TEST ENTER/EDIT OR DERABLES Final Result * BI Mammogram Screening Tomosynthesis Bilateral (12/14/2023 11:53 AM EDT) Anatomical Region Laterality Modality Breast Bilateral Mammography 12/14/2023 11:5 3 AM EDT Narrative 01/08/2024 2:50 PM EDT ? [facility] ? [address] ?[place] [address] ? Mammography Report ? Signed ? Patient: Wellington,Radha ?MR#: [id number] ?? [id number] ? : 1975 ?Acct:[id number] ? Age/Sex: 48 / F ?ADM Date: //24 ? Loc: HO.MAMMO ? Attending Dr: Aaron De Jesus MD ? Ordering Physician: Aaron De Jesus MD ?Results: 1Negativ ?? e ? Date of Service: 12/13/ ?Follow Up: 1 Year From Orig ?? inal Mammogram ? Procedure(s): MM tomosynthesis screening BI ?? Accession Number(s): [id number] ? cc: RAMIRO LOWE NP; Aaron De [...] 1445 ? DD/ 1153 ? TD/TT: ? Adult Neuropsychologist: ? Procedure Note Windy, Dirk - 01/08/2024 [place] [address] [place] [address] Mammography Report Signed Patient: Radha Wellington#: [id number] : 1975Acct:[id number] Age/Sex: 48 / FADM Date: 12/14/23 Loc: KWASI Attending Dr: Aaron De Jesus MD Ordering Physician: Aaron De Jesus MDResults: 1Negativ e Date of Service: 12/14/23Follow Up: 1 Year From Orig ina Mammogram Procedure(s): MM tomosynthesis screening BI Accession Number(s): [id number] cc: RAMIRO LOWE [employer]; Aaron De Jesus MD EXAMINATION: MM SCREENING [...] in OV> 01/08/24 1445 DD/ 1153 TD/TT: Adult Neuropsychologist: us [facility] External Provider IMG BI PROCEDURES Final Result * Albumin, Random Urine W/Creatinine (04/05/2023 8:43 AM EST) Creatinine, Urine 84.26 mg/dL [facility] Microalbumin Urine 10.0 mg/L [facility] Microalbum Creatinine Ratio Ur 11.8 <30 ug/mg cr [facility] Comment:Albumin/Creatinine R atio Reference Ranges: Normal: < 30 ug/mg creatinine Microalbuminuria: 30 - 300 ug/mg creatinineClinical Albuminuria: > 300 ug/mg creatinine Urine (Urine, Random) 04/05/2023 8:43 AM EST 04/05/2023 11:13 AM EST Ramiro Lowe ANP LAB URINE ORDERABLES Final Resul t [facility] [address] [place] [phone] * (ABNORMAL) Hm Colonoscopy (11/14/2022 2:16 PM EDT) Colonoscopy Abnormal(A ) Normal Historical Provider HEALTH MAINTENANCE Edited Result - Final * HPV E6/E7 RFLX PARTHA 16 18/45 (05/13/2021 2:07 PM EST) HPV mRNA E6/E7 rflx Not Detected Not Detected [facility] Comment: Methodology: Acct Exec-Mediated Amplification This assay detects E6/E7 viral messenger RNA (mRNA) from 14 high-risk HPV types (16,18,31,33,35,39,45,51,52,56,58,59,66,68). The analytical performance characteristics of this assay have been determined by [employer]. The modifications have not been cleared or approved by the FDA. This assay has been validated pursuant to the CLIA regulations and is used for clinical purposes. For additional information, please refer to http://education.Hadapt/faq/EXJ587s8 (This link if provided for information/ educational purposes only.) THIS TEST WAS PERFORMED AT: [employer] [address] [place] [address] [address] [place], [place] ??[phone] LYNETTE RICHARDS MD 05/13/2021 2:07 PM EST Ashley Sue HISTORICAL/NON ORDERABLE LABS Fi nal Result Performing Organization Address City/[facility]/ZIP Co de Phone Number [facility] [address] * Hm Pap Smear (05/13/2021) us Historical Provider HEALTH MAINTENANCE Final Result from Last 3 Months or Most Recently Relevant to Health Maintenance [id number] Care Teams Refuse And Recycling Worker Relationship Specialty Start Date End Date Ramiro Lowe ANP [address] [place] [phone] PCP - General Family Medicine 06/01/22
== END 2024-09-29 16:24 | disposition home or self-care (01) ==
LOC: HO.HGI 15:52
PROVIDERS: PCP Nurse Practitioner Primary Care; Visit Provider Nurse Practitioner Family
DX: K21.9 Gastro-esophageal reflux disease without esophagitis (principal); K58.1 Irritable bowel syndrome with constipation; K59.01 Slow transit constipation; Z86.19 Personal history of other infectious and parasitic diseases
CPT/HCPCS: 99213

== ENCOUNTER → 2024-09-29 15:52 | Outpatient (BNVA) | payer MEDICAID, SELFPAY | PROVIDERS: PCP Nurse Practitioner Primary Care; Visit Provider Nurse Practitioner Family | DX: K21.9 Gastro-esophageal reflux disease without esophagitis (principal); K58.1 Irritable bowel syndrome with constipation; K59.01 Slow transit constipation; Z86.19 Personal history of other infectious and parasitic diseases | CPT/HCPCS: 99212 ==

== ENCOUNTER 2024-10-28 18:51 | Emergency (ER) | payer MEDICAID, SELFPAY ==
--- NOTE | ~2024-10-28 | CT_ITS ---
CLINICAL HISTORY: frontal headache CT head without contrast Comparison: None Findings: No intra-axial mass, midline shift, hydrocephalus, or acute hemorrhage. No significant atrophy-like change or white matter disease. There is complete opacification of the frontal sinuses and partial opacification of the ethmoid air cells. The orbits are within normal limits. There is no acute fracture. IMPRESSION: 1. No acute intracranial findings. 2. Severe frontal sinus disease. Moderate ethmoid sinus disease. This document has been electronically signed by: Chris Villegas MD on 10/28/2024 20:42:01
[2024-10-28 18:55] VITALS: BP 118/68; PULSE 89; RESP 16; TEMP 36.5; O2SAT 99; BMI 25.0
--- NOTE | 2024-10-28 18:56 | ED_ITS ---
HPI - General Adult General Chief complaint: Headache Stated complaint: Headache Time Seen by Provider: 10/28/24 23:08 History of Present Illness ED Provider: Irasema CATHERINE narrative: the patient is a 49-year-old woman who says that she has had a headache for 16 days. She says that when the headache began there was nothing particularly remarkable about it. It was not a sudden onset headache. For the 1st few days she thought it was just a regular headache. However the headache has persisted and is becoming more and more bothersome. She feels the headache primarily in the front of her head and to some degree around the left eye. She sometimes feels the eyelids of her left eye are fluttering. She has had no fever, sweats, chills. Possibly she may have some mild nasal discharge. She admits to an she may have an occasional cough. Some mild sore throat. No sense of neck Related Data Home Medications ?Medication ?Instructions ?Recorded ?Confirmed atorvastatin 40 mg tablet 40 mg PO DAILY 05/13/21 09/29/24 empagliflozin 25 mg tablet 25 mg PO QAM 05/13/21 09/29/24 (Jardiance) lisinopril 2.5 mg tablet 2.5 mg PO DAILY 05/13/21 09/29/24 glipizide 5 mg tablet, extended 5 mg PO DAILY 06/17/24 09/29/24 release 24 hr blood sugar diagnostic (FreeStyle #10 ea 07/01/24 09/29/24 Precision Abdelrahman Strips) duloxetine 20 mg capsule,delayed 20 mg PO DAILY 07/01/24 09/29/24 release flash glucose sensor (FreeStyle #1 ea 07/01/24 09/29/24 Robby 2 Sensor kit) pen needle, diabetic 32 gauge x #1,200 ea 07/01/24 09/29/24 (Pentips Pen Needle) bisacodyl 5 mg tablet,delayed 10 mg PO BEDTIME 09/29/24 09/29/24 release insulin glargine 100 unit/mL (3 20 unit subcut BEDTIME 09/29/24 09/29/24 mL) subcutaneous pen (Lantus Solostar U-100 Insulin) Previous Rx's ?Medication ?Instructions ?Recorded medroxyprogesterone 10 mg tablet 10 mg PO DAILY 10 days #30 tabs 02/26/24 (Provera) solifenacin 10 mg tablet (Vesicare) 10 mg PO DAILY urinary frequency 04/23/24 #30 tabs sennosides 8.6 mg tablet (Natural 17.2 mg (2 x 8.6 mg) PO BEDTIME 07/01/24 Senna Laxative) constipation #180 tabs mirabegron 50 mg tablet,extended 50 mg PO DAILY #30 tabs 08/21/24 release 24 hr (Myrbetriq) famotidine 20 mg tablet (Pepcid) 20 mg PO BEDTIME #90 tabs 09/29/24 pantoprazole 40 mg tablet,delayed 40 mg PO DAILY #90 tabs 09/29/24 release Allergies Allergy/AdvReac Type Severity Reaction Status Date / Time simvastatin Allergy Unknown nausea, Verified 10/28/24 18:58 vomiting and dizziness Review of Systems 2 Review of Systems: Yes all other systems are reviewed and are negative [facility] Past Medical History Medical History Elevated cholesterol Helicobacter pylori (H. pylori) Irritable bowel syndrome Gastroesophageal reflux disease Abnormal uterine bleeding (AUB) Heavy menses Diabetes mellitus Surgical History History of esophagogastroduodenoscopy (EGD) Hx of colonoscopy H/O LEEP Family History Family History Father Diabetes HTN (hypertension) Mother Diabetes Paternal Grandfather Diabetes Maternal Grandfather Colon cancer Social History Social History Household Members: Spouse and Children Housing: House Alcohol intake: never Patient Tobacco Use Status: Never used Tobacco Advance Directives: No Advance Directives Information Provided: No Patient : No Current occupational status: unemployed Sexual orientation: Straight/Heterosexual Gender identity: Female Physical Exam ED Vital Signs: Vital Signs - 24 hr 10/28/24 18:55 10/28/24 21:15 10/29/24 00:56 Temperature 97.7 F 98 F 98.2 F Pulse Rate 89 80 69 Respiratory Rate 16 18 18 Blood Pressure 118/68 116/70 110/52 L Pulse Oximetry 99 98 99 Oxygen Delivery Method Room Air Room Air Room Air BMI result Body Mass Index 25.0 Const Other: The patient is awake and alert. She seems to have a normal mental status. She does not seem acutely toxic or obviously acutely ill although she looks somewhat fatigued. Orientation/consciousness: patient oriented x3 HENMT Other: Face is symmetrical. Mucous membranes moist. The pharynx is unremarkable. The posterior pharynx is normal. Eyes General: appearance normal, both eyes and all related structures Conjunctivae: conjunctivae normal Pupils: Equal, round and reactive pupils present EOM: EOMs intact bilaterally Neck Other: the neck is supple, no lymphadenopathy. Neck: Yes no meningeal signs Resp Effort & Inspection: normal respiratory effort Auscultation: clear to auscultation bilaterally Cardio Rate: regular rate Rhythm: regular rhythm Heart sounds: S1 normal heart sound present and S2 normal heart sound present Skin General skin exam: no rashes or lesions noted Neuro General: patient oriented x3, tone normal, moves all extremities, no meningeal signs, no focal motor deficits and CN's II-XI intact bilaterally Cranial nerves: Yes Equal, round and reactive pupils present Extrem General: Yes no pedal edema and Yes no calf tenderness Course Course Course Narrative: RME, this is a rapid medical exam performed by Manjit Clayton please refer to primary provider for complete H&P- 49-year-old female with past medical history significant for overactive bladder, remote history of migraines presents for evaluation of a headache for the last 16 days. She reports a primarily frontal headache. she reports that she has never had imaging of her brain. Plan for CT scan, basic labs with an ESR. Medications Administered Discontinued Medications Generic Name Dose Route Start Last Admin Trade Name Julián PRN Reason Stop Dose Admin Diphenhydramine HCl 25 mg 10/28/24 23:30 10/29/24 00:30 Diphenhydramine Hcl 50 Mg/Ml Vial IVPUSH 10/28/24 23:31 25 mg ONCE ONE Administration Sodium Chloride 1,000 mls @ 999 mls/hr 10/28/24 23:30 10/29/24 00:29 Ns IV 10/29/24 00:30 999 mls/hr .Q1H1M JAROCHO Administration Ketorolac Tromethamine 10 mg 10/28/24 23:30 10/29/24 00:30 Ketorolac Tromethamine 15 Mg/Ml Vial IVPUSH 10/28/24 23:31 10 mg ONCE ONE Administration Metoclopramide HCl 10 mg 10/28/24 23:30 10/29/24 00:30 Metoclopramide Hcl 10 Mg/2 Ml Vial IVPUSH 10/28/24 23:31 10 mg ONCE ONE Administration Medical Decision Making Medical Decision Making [facility] Narrative: The patient is a very pleasant 49-year-old who presents for evaluation of a headache that has been bothering her for 16 days. She does not appear obviously acutely ill. She has had no fevers. A noncontrast head CT was ordered at triage which shows no acute intracranial process. The frontal sinuses were read as completely opacified. I do not think her history is highly suggestive of acute sinusitis. She was treated with metoclopramide, diphenhydramine, ketorolac, and IV fluids. She seemed to feel much better with resolution of her headache. I think that this was probably a migraine headache rather than a more dangerous headache. I think she may be discharged to follow up with the regular doctor. Lab Data 10/28/24 19:05 10/28/24 19:05 Labs: Lab Results 10/28/24 Range/Units 19:05 WBC 5.4 (4.8-10.8) X10*3/uL RBC 5.02 (4.20-5.50) X10*6/uL Hgb 15.4 (12.0-16.0) g/dl Hct 45.4 (37.0-47.0) % MCV 90.4 (80.0-98.0) fL MCH 30.7 (27.0-33.0) pg MCHC 33.9 (31.0-35.0) g/dl RDW 13.0 (11.0-16.0) % Plt Count 228 (160-400) X10*3/uL MPV 11.4 (9.4-12.3) fL Immature Gran % (Auto) 0.6 H (0.0-0.4) % Neut % (Auto) 68.7 (45-73) % Lymph % (Auto) 20.3 (20-40) % [place] % (Auto) 7.8 (2-11) % Eos % (Auto) 2.0 (0-4) % Baso % (Auto) 0.6 (0-2) % Lymph # (Auto) 1.1 L (1.2-4.9) X10*3/uL [place] # (Auto) 0.4 (0.1-1.2) X10*3/uL Eos # (Auto) 0.1 (0.0-0.4) X10*3/uL Baso # (Auto) 0.0 (0.0-0.2) X10*3/uL Abs Immat Gran (auto) 0.03 (0.00-0.03) X10*3/uL Absolute Neuts (auto) 3.7 (2.0-8.3) x10*3/uL Absolute Nucleated RBC 0.000 (0.0-0.012) X10*3/uL Nucleated RBC % (auto) 0.0 (0.0-0.2) /100WBC ESR 19 (0-20) MM/HR Sodium 140 (135-145) mmol/L Potassium 3.3 (3.3-5.1) mmol/L Chloride 106 (96-108) mmol/L Carbon Dioxide 27 (22-29) mmol/L Anion Gap 10 L (12-20) BUN 15 (9-16) mg/dL Creatinine 0.65 (0.5-1.4) mg/dL Estim Creat Clear Calc 94.2 Estimated GFR > 60 Random Glucose 140 H (60-115) mg/dL Calcium 9.3 (8.4-10.2) mg/dL C-Reactive Protein 0.35 (< or = 0.50) mg/dL Beta HCG, Quant < 2 mIU/mL Discharge Plan Discharge Clinical Impression: Headache Patient Disposition: Home, Self-Care Additional Instructions: Your tests are all reassuring. Your headache seems to have improved with medications which are usually helpful with a migraine headache. Please rest and take it easy tonight. Please contact your regular doctor's office in the morning to arrange a follow up appointment soon to discuss this episode of a headache. Return to the emergency room if you feel significantly worse. Prescriptions: No Action solifenacin [Vesicare] 10 mg tablet 10 mg PO DAILY Qty: 30 5RF glipizide 5 mg tablet extended release 24hr 5 mg PO DAILY atorvastatin 40 mg tablet 40 mg PO DAILY lisinopril 2.5 mg tablet 2.5 mg PO DAILY Jardiance 25 mg tablet 25 mg PO QAM mirabegron [Myrbetriq] 50 mg tablet extended release 24 hr 50 mg PO DAILY Qty: 30 3RF (DME) FreeStyle Robby 2 Sensor Kit See Rx Instructions .ROUTE Q2W Qty: 1 Rx Instructions: As directed (DME) pen needle, diabetic [Pentips Pen Needle] 32 gauge x 5/32 needle See Rx Instructions .ROUTE DAILY Qty: 1200 Rx Instructions: As directed duloxetine 20 mg capsule,delayed release(DR/EC) 20 mg PO DAILY (DME) FreeStyle Precision Abdelrahman Strips Strip See Rx Instructions .ROUTE TID Qty: 10 Rx Instructions: As directed sennosides [Natural Senna Laxative] 8.6 mg tablet 17.2 mg PO BEDTIME Qty: 180 3RF bisacodyl 5 mg tablet,delayed release (DR/EC) 10 mg PO BEDTIME insulin glargine [Lantus Solostar U-100 Insulin] 100 unit/mL (3 mL) insulin pen 20 unit subcut BEDTIME famotidine [Pepcid] 20 mg tablet 20 mg PO BEDTIME Qty: 90 3RF pantoprazole 40 mg tablet,delayed release (DR/EC) 40 mg PO DAILY Qty: 90 3RF Rx Instructions: take one tablet half an hour before breakfast medroxyprogesterone [Provera] 10 mg tablet 10 mg PO DAILY 10 Days Qty: 30 3RF Rx Instructions: start Provera 1 tablet daily from day 15-24 cyclically every months, day 1 being 1st day of menses Referrals: Deidre Escobar [employer] [Primary Care Provider] - ( Headache) Print Language: Panamanian
[2024-10-28 19:12] LABS: MANUAL DIFF FLAG NO
[2024-10-28 19:27] LABS: Anion Gap 10 (12-20); Blood Urea Nitrogen 15 mg/dL (9-16); Calcium 9.3 mg/dL (8.4-10.2); Carbon Dioxide 27 mmol/L (22-29); Chloride 106 mmol/L (96-108); Creatinine Clr Calc Pharmacy 94.2; Estimated Glomerular Filt Rate > 60; Glucose Random 140 mg/dL (60-115); Potassium 3.3 mmol/L (3.3-5.1); Sodium 140 mmol/L (135-145)
[2024-10-28 19:37] LABS: HCG Quantitative < 2 mIU/mL
[2024-10-28 19:53] LABS: Basophils Percent Auto 0.6 % (0-2); Eosinophils Absolute Auto 0.1 X10*3/uL (0.0-0.4); Hematocrit 45.4 % (37.0-47.0); Hemoglobin 15.4 g/dl (12.0-16.0); Imm Gran Abs Auto 0.03 X10*3/uL (0.00-0.03); Imm Gran Pct Auto 0.6 % (0.0-0.4); Lymphocytes Absolute Auto 1.1 X10*3/uL (1.2-4.9); Lymphocytes Percent Auto 20.3 % (20-40); Mean Corpuscular HGB Conc 33.9 g/dl (31.0-35.0); Mean Corpuscular Hemoglobin 30.7 pg (27.0-33.0); Mean Corpuscular Volume 90.4 fL (80.0-98.0); Mean Platelet Volume 11.4 fL (9.4-12.3); Monocytes Absolute Auto 0.4 X10*3/uL (0.1-1.2); Monocytes Percent Auto 7.8 % (2-11); Neutrophils Absolute Auto 3.7 x10*3/uL (2.0-8.3); Neutrophils Percent Auto 68.7 % (45-73); Platelet Count 228 X10*3/uL (160-400); Red Blood Count 5.02 X10*6/uL (4.20-5.50); White Blood Count 5.4 X10*3/uL (4.8-10.8)
[2024-10-28 20:13] LABS: Erythrocyte Sedimentation Rate 19 MM/HR (0-20)
[2024-10-28 21:15] VITALS: BP 116/70; PULSE 80; RESP 18; TEMP 36.6; O2SAT 98
--- NOTE | 2024-10-28 22:37 | PC.NURSE ---
pt awaiting provider evaluation at this time labs and CT complete.
[2024-10-28 23:25] LABS: C Reactive Protein 0.35 mg/dL (< or = 0.50)
[2024-10-29] MEDS: 0.9 % Sodium Chloride 1,000 ML 999 ML IV (00:29)
[2024-10-29] MEDS: Ketorolac Tromethamine 15 MG/ML VIAL 10 MG IVPUSH (00:30)
[2024-10-29] MEDS: Metoclopramide HCl 10 MG/2 ML VIAL IVPUSH (00:30)
[2024-10-29] MEDS: diphenhydrAMINE HCL 50 MG/ML VIAL 25 MG IVPUSH (00:30)
--- NOTE | 2024-10-29 00:37 | PC.NURSE ---
medicated per mar.
[2024-10-29 00:56] VITALS: BP 110/52; PULSE 69; RESP 18; TEMP 36.8; O2SAT 99
--- NOTE | 2024-10-29 01:41 | PC.NURSE ---
pt medicated per mar, pt reports feeling much better.
--- NOTE | 2024-10-29 02:20 | PC.NURSE ---
Iv removed, reviewed discharge instructions with pt. pt verbalized understanding, no sign of distress.
[2024-10-29 02:23] VITALS: BP 110/52; PULSE 69; RESP 18; TEMP 36.8; O2SAT 99
== END 2024-10-29 02:23 | disposition home or self-care (01) ==
PROVIDERS: Physician Assistant; Emergency Provider Emergency Medicine; PCP Nurse Practitioner Primary Care
DX: R51.9 Headache, unspecified (principal)
CPT/HCPCS: 36415; 70450; 80048; 84702; 85025; 85652; 86140; 96361; 96374; 96375; 99284; 99285; J1200; J1885; J2765

== ENCOUNTER → 2024-10-28 18:56 | Outpatient (BNV) | payer MEDICAID, SELFPAY | PROVIDERS: PCP Nurse Practitioner Primary Care; Visit Provider Radiology Vascular & Interventional Radiology | DX: J34.89 Other specified disorders of nose and nasal sinuses (principal) | CPT/HCPCS: 70450 ==

== ENCOUNTER 2024-11-26 16:24 | Outpatient (REF) | payer MEDICAID, SELFPAY ==
--- NOTE | ~2024-11-26 | US_ITS ---
CLINICAL HISTORY: N93.9 - Abnormal uterine and vaginal bleeding, unspecified Ultrasound of the female pelvis Comparison: US/VA/SR - US PELVIC AND TRANSVAGINAL - 08/09/21 14:23 EDT Technique: Grayscale ultrasound with assistance of color Doppler. Transabdominal scanning performed for overall anatomy. Transvaginal scanning performed for better anatomic delineation. Findings: Anteverted uterus is enlarged, 10.0 x 6.0 x 6.7 cm, previously 12.7 x 6.7 x 8.5 cm. Heterogeneous myometrium, anterior lower uterine segment fibroid 2.6 x 2.0 x 2.1 cm, previously 3.0 x 2.6 x 2.5 cm; intramural fibroid in the left posterior uterine body 3.5 x 3.5 x 3.8 cm, not seen before. The endometrium is not well seen, grossly unremarkable, 5 mm in thickness. Nabothian cysts noted. Normal right ovary, 4.0 x 2.8 x 2.3 cm. No abnormal vascular flow. Dominant follicle 2.9 cm. Normal left ovary, 1.9 x 1.3 x 1.5 cm. No abnormal vascular flow. No free fluid. Impression: Uterine fibroids. This document has been electronically signed by: Sasha Hodges MD on 11/27/2024 14:12:45
--- OUTSIDE RECORDS SUMMARY | 2024-11-26 16:26 | XMS_ITS | Clinical Summary ---
Author Organization [employer] Address [address] [place] [address] 7 [place] [address] Care Team Providers Care Production Worker Name Role Phone Ramiro Lowe RAYNE Primary Care Provider [phone] Allergies No known active allergies Medications glucose blood (FREESTYLE LITE) test stripIndications :Hyperlipidemia associated with type 2 diabetes mellitus (CMS/HCC) Test blood sugar three times daily 100 each 9 022 Active TRUEplus Lancets 33G miscIndications: Type 2 diabetes mellitus with hyperlipidemia (CMS/HCC) (CMS/[facility]) TEST BLOOD SUGAR THREE TIMES DAILY 100 each 11 023 Active Blood Glucose Monitoring Suppl (FreeStyle Lite) w/Device kitIndications:T ype 2 diabetes mellitus with hyperlipidemia (CMS/HCC) (CMS/[facility]) 1 each if needed in the morning, [...] response 4 tablet 024 Active Continuous Glucose Manager Motor (FreeStyle Robby 2 [place]) deviceIndication s:Type 2 diabetes mellitus with hyperlipidemia (CMS/HCC) ([facility]) Scan sensor every 8 hours 1 each 024 Active Continuous Glucose Sensor (FreeStyle Robby 2 Sensor) miscIndications: Type 2 diabetes mellitus with hyperlipidemia (CMS/HCC) ([facility]) Apply 1 sensor every 14 days 2 each 11 024 Active solifenacin (VESIcare) 10 MG tablet Take 10 mg by mouth Once per day. 024 Active pantoprazole (ProtoNix) 40 MG EC tablet TAKE 1 TABLET BY MOUTH EVERY DAY 30 MINUTES BEFORE BREAKFAST 024 Active medroxyPROGESTER one (Provera) 10 MG tablet TAKE 1 TABLET BY MOUTH EVERY DAY FOR 10 DAYS STARTING ON DAY 1 OF MENSES 024 Active dulaglutide (Trulicity) 4.5 MG/0.5ML solution pen-injector Inject under the skin 1 (one) time per week. Active Lantus SoloStar 100 UNIT/ML penIndications:T ype 2 diabetes mellitus with hyperlipidemia (CMS/HCC) ([facility]) INJECT 20 UNITS SUBCUTANEOUSLY AT BEDTIME 15 mL 3 024 Active Pentips Generic Pen Moclips 32G X 4 MM miscIndications: Type 2 diabetes mellitus with hyperlipidemia (CMS/HCC) ([facility]),Type 2 diabetes mellitus with other specified complication, with long-term current use of insulin ([facility]) USE EVERY DAY 100 each 5 025 Active atorvastatin (Lipitor) 40 MG tabletIndication s:Type 2 diabetes mellitus with hyperlipidemia (CMS/HCC) ([facility]),High cholesterol TAKE 1 TABLET BY MOUTH ONCE DAILY 90 tablet 3 025 Active DULoxetine (Cymbalta) [address] capsuleIndicatio ns:Fibromyalgia TAKE 1 CAPSULE BY MOUTH EVERY DAY 30 capsule 1 025 Active Ozempic, 0.25 or 0.5 MG/DOSE, 2 MG/3ML solution pen-injectorIndi cations:Type 2 diabetes mellitus with hyperlipidemia (CMS/HCC) ([facility]) INJECT 0.5 MG SUBCUTANEOUSLY EVERY 7 DAYS IN THE ABDOMEN, THIGHS, OR UPPER ARM, ROTATE INJECTION SITES. 3 mL 2 025 Active Jardiance 25 MGIndications:Ty pe 2 diabetes mellitus with hyperlipidemia (CMS/HCC) (CMS/HCC) TAKE 1 TABLET BY MOUTH EVERY MORNING 30 tablet 5 025 Active lisinopril 2.5 MG tabletIndication s:Type 2 diabetes mellitus with hyperlipidemia (CMS/HCC) (CMS/HCC),Essent ial hypertension TAKE 1 TABLET BY MOUTH EVERY DAY 90 tablet 025 Active glipiZIDE XL (Glucotrol XL) 5 MG 24 hr tabletIndication s:Type 2 diabetes mellitus with hyperlipidemia (CMS/HCC) (CMS/HCC) TAKE 1 TABLET BY MOUTH EVERY DAY WITH A MEAL. DO NOT BREAK, CRUSH, DISSOLVE OR CHEW. 90 tablet 025 Active atorvastatin (Lipitor) 40 MG tabletIndication s:High cholesterol Take 1 tablet (40 mg) by mouth in the morning. 90 tablet 023 Discontinued(R eorder (will not trigger notification to Pharmacy)) glipiZIDE XL (Glucotrol XL) 5 MG 24 hr tabletIndication s:Type 2 diabetes mellitus with hyperlipidemia (CMS/HCC) (CMS/[facility]) TAKE 1 TABLET BY MOUTH ONCE DAILY WITH A MEAL DO NOT BREAK, CRUSH, DISSOLVE OR CHEW 90 tablet 1 024 2024 Discontinued lisinopril 2.5 MG tabletIndication s:Type 2 diabetes mellitus with hyperlipidemia (CMS/HCC) (CMS/HCC),Essent ial hypertension TAKE 1 TABLET BY MOUTH EVERY DAY 90 tablet 1 024 2024 Discontinued Active Problems Problem Noted Date Diagnosed Date Fibromyalgia 08/15/2022 Type 2 diabetes mellitus with hyperlipidemia (CM S/HCC) 08/15/2022 Essential hypertension 06/15/2022 Encounters Date Type Department Care Team Description 11/03/2024 Refill [facility] MEDICINE [address] [place] [address] Ramiro Lowe ANP Type 2 diabetes mellitus with hyperlipidemia (CMS/HCC) (CMS/HCC); Essential hypertension; Type 2 diabetes mellitus with hyperlipidemia (CMS/HCC) (CMS/HCC) 10/28/2024 Orders Only GENERIC EXTERNAL DATA DEPARTMENT Provider, Generic External Data 10/24/2024 Refill [facility] MEDICINE [address] [place] [address] Ramiro Lowe ANP Type 2 diabetes mellitus with hyperlipidemia ([facility]/HCC) ([facility]) 10/22/2024 Refill [facility] MEDICINE [address] [place] [address] Ramiro Lowe ANP Type 2 diabetes mellitus with hyperlipidemia ([facility]/HCC) ([facility]) 09/30/2024 Telephone [facility] MEDICINE [address] [place] [address] Ramiro Lowe ANP [place] recall 09/05/2024 Telephone [facility] MEDICINE [address] [place] [address] Ramiro Lowe ANP No Show 09/04/2024 Telephone [facility] WALK-IN CENTER [address] [place] [address] Atiya Nava MA chart prep 09/04/2024 Refill [facility] MEDICINE [address] [place] [address] Ramiro Lowe ANP Fibromyalgia 08/31/2024 Refill [facility] MED[facility]INE [address] [place] [address] Ramiro Lowe ANP Type 2 diabetes mellitus with hyperlipidemia ([facility]/HCC) ([facility]); Type 2 diabetes mellitus with other specified complication, with long-term current use of insulin ([facility]); High cholesterol from Last 3 Months Immunizations Immunization Administration Dates Next Due Influenza injectable quadriv [...] 103 08/13/2024 6:30 PM EDT Temperature 36.4 C (97.6 F) 08/13/2024 6:30 PM EDT Respiratory Rate 20 08/13/2024 6:30 PM EDT Oxygen Saturation 99% 08/13/2024 6:30 PM EDT Inhaled Oxygen Concentration - - Weight 68.8 kg (151 lb 9.6 oz) 08/13/2024 6:30 P M EDT Height 165.1 cm (5' 5 ) 08/13/2024 6:30 PM EDT Body Mass Index 25.23 08/13/2024 6:30 PM EDT Plan of Treatment Upcoming Encounters Date Type Department Care Team (Late st Contact Info) Description 01/22/2025 2:30 PM EDT Office Visit [facility] MEDICINE [address] [place] [address] Ramiro Lowe ANP [address] [place] [address] Health Maintenance Due Date Last Done Comments CT Colonography 1975 FIT DNA/Cologuard 1975 FIT 1975 FOBT 1975 Sigmoidoscopy 1975 Disability Screening 1975 Alcohol/Substance Use Screening 1987 Family Planning (PISQ) 1990 Hepatitis B Vaccines (1 of 3 - 19+ 3-dose series) 1994 DTaP/Tdap/Td Vaccines (1 - Tdap) 05/14/2015 05/13/2015, 05/24/2014 Pneumococcal Vaccine: Pediatrics (0 to 5 Years) and At-Risk Patients (6 to 49) Years (2 of 2 - PCV) 04/25/2019 04/25/2018 Colonoscopy 11/15/2023 11/14/2022 Colorectal Cancer Screening 11/15/2023 COVID-19 Vaccine ( season) 2024 10/20/2020, 09/22/2020 Diabetes: Foot Exam 02/24/2024 02/23/2023 Diabetes: Urine Protein Screening 04/05/2024 04/05/2023, 03/04/2021 Diabetes: Hemoglobin A1C 04/23/20242 024, 10/25/2023, 07/09/2023, Additional history exists Mammogram 12/13/2024 12/14/2023, 11/25, 12/04/2022 SDOH Screening 01/03/2025 01/04/2024 Depression Screening 01/21/2025 01/22/2024, 01/22/20 24 Influenza Vaccine (#1) 2025 , 04/18/2021, 04/25/2018, Additional history exists Lipid Panel 01/29/2025 01/30/2024, 1101/2023, 03/04/2021 Zoster Vaccines (1 of 2) 2025 [...] patient's age to complete this topic Meningococcal B Vaccine Aged Out No l onger eligible based on patient's age to complete [...] Procedure Name Priority Date/Time Associated Diagnosis Comments CT HEAD WO CONTRAST Routine 10/28/2024 8 :42 PM EDT C-REACTIVE PROTEIN Routine 10/28/2024 7: 05 PM EDT SED RATE BY MODIFIED WESTERGREN Routine 10/28/2024 7:05 PM EDT CBC WITH AUTO DIFFERENTIAL Routine 10/28/2024 7:05 PM EDT HCG, TOTAL, QN Routine 10/28/2024 7:05 PM EDT BASIC METABOLIC PANEL Routine 10/28/2024 7:05 PM EDT HEPATITIS C AB W/REFL TO HCV RNA, [...] Recently Relevant to Health Maintenance Results * CT Head w/o Contrast (10/28/2024 8:42 PM EDT) Anatomical Region Laterality Modality Head, Neck Computed Tomogra phy 10/28/2024 8:42 PM EDT Narrative 10/28/2024 8:43 PM EDT [address] [address] [address] Scan Report Signed Patient: Radha Wellington MR#: [id number] : 1975 Acct:[id number] Age/Sex: 49 / F ADM Date: 10/28/24 Loc: HO.ED Attending Dr: Ordering Physician: Ousmane Clayton Date of Service: 10/28/24 Procedure(s): CT head/brain wo IV con Accession Number(s): [id number] cc: Ousmane Clayton; RAMIRO LOWE TENTER FRAME BACK TENDER Report Number: [id number]: Total DLP = 694.00 mGy-cm CLINICAL HISTORY: frontal headache CT head without contrast Comparison: None Findings: No intra-axial mass, midline shift, hydrocephalus, or acute hemorrhage. No significant atrophy-like change or white matter disease. There is complete opacification of the frontal sinuses and partial opacification of the ethmoid air cells. The orbits are within normal limits. There is no acute fracture. IMPRESSION: 1. No acute intracranial findings. 2. Severe frontal sinus disease. Moderate ethmoid sinus disease. This document has been electronically signed by: Chris Villegas MD on 10/28/2024 20:42:01 Dictated By: Chris Villegas MD Signed By: <Electronically signed by Chris Villegas MD in OV> 10/28/242041 DD/ 41 TD/TT: 10/28/242041 Apartment Community Assistant Manager: Procedure Note Donotuseinterpreter, Image - 10/28/[address] [place] [address] [address] Scan Report Signed Patient: Radha WellingtonMR#: [id number] : 1975Acct:[id number] Age/Sex: 49 / FADM Date: 10/28/24 Loc: .ED Attending Dr: Ordering Physician: Ousmane Clayton Date of Service: 10/28/24 Procedure(s): CT head/brain wo IV con Accession Number(s): [id number] cc: Ousmane Clayton; RAMIRO LOWE TENTER FRAME BACK TENDER Report Number: [id number]: Total DLP = 694.00 mGy-cm CLINICAL HISTORY: frontal headache CT head without contrast Comparison: None Findings: No intra-axial mass, midline shift, hydrocephalus, or acute hemorrhage. No significant atrophy-like change or white matter disease. There is complete opacification of the frontal sinuses and partial opacification of the ethmoid air cells. The orbits are within normal limits. There is no acute fracture. IMPRESSION: 1. No acute intracranial findings. 2. Severe frontal sinus disease. Moderate ethmoid sinus disease. This document has been electronically signed by: Chris Villegas MD on 10/28/2024 20:42:01 Dictated By: Chris Villegas MD Signed By: <Electronically signed by Chris Villegas MD in OV> 10/28/242041 DD/ 41 TD/TT: 10/28/242041 Apartment Community Assistant Manager: [facility] External Provider IMG CT PROCEDURES Edited Result - Final * (ABNORMAL) CBC auto differential (10/28/2024 7:05 PM EDT) White Blood Count 5.4 4.8 - 10.8 X10*3/uL [facility] Red Blood Count 5.02 4.20 - 5.50 X10*6/uL [facility] Hemoglobin 15.4 12.0 - 16.0 g/dl [facility] Hematocrit 45.4 37.0 - 47.0 % [facility] Mean Corpuscular Volume 90.4 80.0 - 98.0 fL [facility] Mean Corpuscular Hemoglobin 30.7 27.0 - 33.0 pg [facility] Mean Corpuscular HGB Conc 33.9 31.0 - 35.0 g/dl [facility] Red Cell Distribution Width 13.0 11.0 - 16.0 % [facility] Platelet Count 228 160 - 400 X10*3/uL [facility] Mean Platelet Volume 11.4 9.4 - 12.3 fL [facility] Neutrophils Percent Auto 68.7 45 - 73 % [facility] Imm Gran Pct Auto 0.6(H) 0.0 - 0.4 % [facility] Lymphocytes Percent Auto 20.3 20 - 40 % [facility] Monocytes Percent Auto 7.8 2 - 11 % [facility] Eosinophils Percent Auto 2.0 0 - 4 % [facility] Basophils Percent Auto 0.6 0 - 2 % [facility] NRBC Pct Auto 0.0 0.0 - 0.2 /100WBC [facility] Neutrophils Absolute Auto 3.7 2.0 - 8.3 x10*3/uL [facility] Imm Gran Abs Auto 0.03 0.00 - 0.03 X10*3/uL [facility] Lymphocytes Absolute Auto 1.1(L) 1.2 - 4.9 X10*3/uL [facility] Monocytes Absolute Auto 0.4 0.1 - 1.2 X10*3/uL [facility] Eosinophils Absolute Auto 0.1 0.0 - 0.4 X10*3/uL [facility] Basophils Absolute Auto 0.0 0.0 - 0.2 X10*3/uL [facility] NRBC Abs Auto 0.000 0.0 - 0.012 X10*3/uL [facility] 10/28/2024 7:05 PM EDT 10/28/2024 7:11 PM EDT us Generic External Data Provider LAB BLOOD ORDERAB LES Final Result Performing Organization Address [facility]/ZIP Co de Phone Number [facility] [address] [place] [phone] * Sed Rate by Modified Meagan (10/28/2024 7:05 PM EDT) Erythrocyte Sedimentation Rate 19 0 - 20 MM/HR [facility] Comment:Patients with polycy themia and many hemoglobin abnormalitiesmay have depressed sed rates whereas patients with anemiamay have elevated sed rates. 10/28/2024 7:05 PM EDT 10/28/2024 7:11 PM EDT us Generic External Data Provider LAB BLOOD ORDERAB LES Final Result Performing Organization Address [facility]/ZIP Co de Phone Number [facility] [address] [place] [phone] * C-reactive Protein (10/28/2024 7:05 PM EDT) C Reactive Protein 0.35 < or = 0.50 mg/dL [facility] 10/28/2024 7:05 PM EDT 10/28/2024 7:11 PM EDT Generic External Data Provider LAB BLOOD ORDERAB LES Final Result Performing Organization Address [facility] Co de Phone Number [facility] [address] [place] [phone] * hCG, Total, Quantitative (10/28/2024 7:05 PM EDT) HCG Quantitative <2 mIU/mL [facility] Comment:Weeks post LMP Appr oximate hCG(Last Menstrual Period) Range (mIU/ml)3 - 4 weeks 9 - 1304 - 5 weeks 75 - 2,6005 - 6 weeks 850 - 20,8006 - 7 weeks 4000 - 100,2007 - 12 weeks 11,500 - 289,30733 - 16 weeks 18,300 - 137,26726 - 29 weeks (2nd trimester) 1,400 - 53,92433 - 41 weeks (3rd trimester) 940 - 60,000The Lee B- hCG assay is used for the early detection ofpregnancy; it cannot be used to diagnose any conditionunrelated to . If a B-hCG level is not supportedby the clinical evidence, results should be confirmed by analternative method (qualitative urine hCG, for example). 10/28/2024 7:05 PM EDT 10/28/2024 7:11 PM EDT us Generic External Data Provider LAB BLOOD ORDERAB LES Final Result Performing Organization Address [facility]/ZIP Co de Phone Number [facility] [address] [facility] [place] [address] [phone] * (ABNORMAL) Basic Metabolic Panel (10/28/2024 7:05 PM EDT) Sodium 140 135 - 145 mmol/L [facility] Potassium 3.3 3.3 - 5.1 mmol/L [facility] Chloride 106 96 - 108 mmol/L [facility] Carbon Dioxide 27 22 - 29 mmol/L [facility] Anion Gap 10(L) 12 - 20 [facility] Urea Nitrogen (BUN) 15 9 - 16 mg/dL [facility] Creatinine, Serum 0.65 0.5 - 1.4 mg/dL [facility] Creatinine Clr Calc Pharmacy 94.2 [facility] Comment:Provided height and weight: 165.1 cm,68.039 kg.eGFR (calculated from the MDRD study equation) and eCrCl(calculated from the Cockcroft-Gault equation) are based ondifferent parameters and may not yield comparable results.If eCrCl result is absurd, please check patient'sheight/weight. Estimated Glomerular Filt Rate >60 [facility] Comment:Chronic Kidney Disea se: Estimated GFR < 60 mL/min/1.20i1Xncklw Kidney Disease: Estimated GFR < 15 mL/min/1.73m2 Glucose 140(H) 60 - 115 mg/dL [facility] Calcium 9.3 8.4 - 10.2 mg/dL [facility] 10/28/2024 7:05 PM EDT 10/28/2024 7:11 PM EDT us Generic External Data Provider LAB BLOOD ORDERAB LES Final Result [facility] [address] [place] [phone] [phone] * Hepatitis C Antibody with Reflex to HCV, RNA, Quantitative, Real-Time PCR (01/30/2024 8:38 AM EDT) Hepatitis C Antibody Nonreactive Nonreactive [facility] Comment:Antibodies to HCV no t detected; does not exclude early acuteHCV infection. Blood Venous blood specimen / Unknown 01/30/2024 8:38 AM EDT 01/30/2024 10:56 AM EDT Ramiro Lowe [facility] LAB BLOOD ORDERABLES Final Resul t Performing Organization Address [facility] Co de Phone Number [facility] [address] [place] [phone] * HIV-1/2 Antigen and Antibodies, Fourth Generation, with Reflexes (01/30/2024 8:38 AM EDT) Pathologist [facility] HIV AB/AG Nonreactive Nonreactive [facility] Comment:HIV-1 p24 Ag and/or HIV-1/HIV-2 Ab not detected.A test result that is nonreactive does not exclude thepossibility of exposure to or infection with HIV-1 and/orHIV-2. Nonreactive results in this assay for individualswith prior exposure to HIV-1 and/or HIV-2 may be due toantigen and antibody levels that are below the limit ofdetection of this assay.The Qoniac HIV Ag/Ab Combo assay result andsupplemental assay results should be interpreted inconjunction with the patient's clinical presentation,history and other laboratory results. If the results areinconsistent with clinical evidence, additional testing issuggested to confirm the result. Blood Venous blood specimen / Unknown 01/30/2024 8:38 AM EDT 01/30/2024 10:56 AM EDT Ramiro Lowe [facility] LAB BLOOD ORDERABLES Final Resul t Performing Organization Address [facility] Co de Phone Number [facility] [address] [place] [phone] [phone] * (ABNORMAL) Lipid Panel, Standard (01/30/2024 8:38 AM EDT) Triglycerides 118 <150 mg/dL [facility] Comment:Desirable Triglyceri de: less than 150 mg/dLBorderline High Triglyceride 150-199 mg/dLHigh Triglyceride: 200-499 mg/dLVery High Triglyceride: greater than or equal to 5OO mg/dL Cholesterol 215(H) <200 mg/dL [facility] Comment:Desirable Cholestero l: less than 200 mg/dLBorderline High Cholesterol: 200-239 mg/dLHigh Cholesterol: greater than 239 mg/dL LDL Cholesterol Calculated 140(H) <100 mg/dL [facility] Comment:Desirable LDL: less than 100 mg/dLNear Optimal/Above Optimal LDL: 110- 129 mg/dLBorderline High LDL: 130-159 mg/dLHigh LDL: 160-189 mg/dLVery High LDL: greater than or equal to 190 mg/dL HDL Cholesterol 52 >40 mg/dL [facility] Comment:Desirable HDL: great er than 40 mg/dL Note: This HDL assay may give artificially low results in patients with liver disease. Blood Venous blood specimen / Unknown 01/30/2024 8:38 AM EDT 01/30/2024 10:56 AM EDT us Ramiro MCLAIN LAB BLOOD ORDERABLES Final Resul t [facility] [address] [place] [phone] * (ABNORMAL) POCT HGB A1C (01/22/2024 [...] AM EDT Narrative 01/08/2024 2:50 PM EDT [address] [place] [address] Mammography Report Signed Patient: Radha Wellington MR#: [id number] : 1975 Acct:[id number] Age/Sex: 48 / F ADM Date: 12/14/23 Loc: KWASI Attending Dr: Aaron De Jesus MD Ordering Physician: Aaron De Jesus MD Results: 1Negativ e Date of Service: 12/14/23 Follow Up: 1 Year From Orig ina Mammogram Procedure(s): MM tomosynthesis screening BI Accession Number(s): [id number] cc: RAMIRO LOWE NP; Aaron De Jesus MD EXAMINATION: MM SCREENING [...] in OV> 01/08/24 1445 DD/ 1153 TD/TT: Apartment Community Assistant Manager: Procedure Note Donotuseinterpreter, Image - [facility]/08/[facility] [address] [place], [place] [address] Mammography Report Signed Patient: Radha WellingtonMR#: [id number] : 1975Acct:[id number] Age/Sex: 48 / FADM Date: 12/14/23 Loc: KWASI Attending Dr: Aaron De Jesus MD Ordering Physician: Aaron De Jesus MDResults: 1Negativ e Date of Service: 12/14/23Follow Up: 1 Year From Orig ina Mammogram Procedure(s): MM tomosynthesis screening BI Accession Number(s): [id number] cc: RAMIRO LOWE TENTER FRAME BACK TENDER; Aaron De Jesus MD EXAMINATION: MM SCREENING [...] in OV> 01/08/24 1445 DD/ 1153 TD/TT: Apartment Community Assistant Manager: [facility] External Provider IMG BI PROCEDURES Final Result * Albumin, Random Urine W/Creatinine (04/05/2023 8:43 AM EST) Creatinine, Urine 84.26 mg/dL [facility] Microalbumin Urine 10.0 mg/L [facility] Microalbum Creatinine Ratio Ur 11.8 <30 ug/mg cr [facility] Comment:Albumin/Creatinine R atio Reference Ranges: Normal: < 30 ug/mg creatinine Microalbuminuria: 30 - 300 ug/mg creatinineClinical Albuminuria: > 300 ug/mg creatinine Urine (Urine, Random) 04/05/2023 8:43 AM EST 04/05/2023 11:13 AM EST Ramiro Lowe [facility] URINE ORDERABLES Final Resul t Performing Organization Address City/[facility]/ZIP Co de Phone Number [facility] [address] [place] [address] [phone] * (ABNORMAL) Hm Colonoscopy (11/14/2022 2:16 PM EDT) Colonoscopy Abnormal(A ) Normal Historical Provider HEALTH MAINTENANCE Edited Result - Final * HPV E6/E7 RFLX PARTHA 16 18/45 (05/13/2021 2:07 PM EST) HPV mRNA E6/E7 rflx Not Detected Not Detected [facility] Comment: Methodology: Satin Finisher-Mediated Amplification This assay detects E6/E7 viral messenger RNA (mRNA) from 14 high-risk HPV types (16,18,31,33,35,39,45,51,52,56,58,59,66,68). The analytical performance characteristics of this assay have been determined by [employer]. The modifications have not been cleared or approved by the FDA. This assay has been validated pursuant to the CLIA regulations and is used for clinical purposes. For additional information, please refer to http://education.WebSafety/faq/IIL626f5 (This link if provided for information/ educational purposes only.) THIS TEST WAS PERFORMED AT: [facility] [address] [place] [address],[place] [address] LYNETTE RICHARDS MD 05/13/2021 2:07 PM EST Ashley Sue HISTORICAL/NON ORDERABLE LABS Fi nal Result Performing Organization Address City/[facility]/ZIP Co de Phone Number [facility] [employer] [address] * Hm Pap Smear (05/13/2021) Historical Provider HEALTH MAINTENANCE Final Result from Last 3 Months or Most Recently Relevant to Health Maintenance Insurance [facility] C3 Care Teams Production Worker Relationship Specialty Start Date End Date Ramiro Lowe ANP [address] [place] [id number] PCP - General Family Medicine 06/01/22
--- OUTSIDE RECORDS SUMMARY | 2024-11-26 16:26 | XMS_ITS | Clinical Summary ---
Author Organization [facility] Address [address] [place] [address] Care Team Providers Care Locker Room Clerk Name Role Phone Unavailable Primary Care Provider [...]
== END 2024-11-26 16:25 | disposition home or self-care (01) ==
LOC: HO.US 16:24
PROVIDERS: PCP Nurse Practitioner Primary Care; Visit Provider Obstetrics & Gynecology
DX: N93.9 Abnormal uterine and vaginal bleeding, unspecified (principal)
CPT/HCPCS: 76830; 76856

== ENCOUNTER → 2024-11-26 16:26 | Outpatient (BNV) | payer MEDICAID, SELFPAY | PROVIDERS: PCP Nurse Practitioner Primary Care; Visit Provider Radiology Diagnostic Radiology | DX: D25.9 Leiomyoma of uterus, unspecified (principal) | CPT/HCPCS: 76830; 76856 ==

== ENCOUNTER 2024-12-10 13:38 | Outpatient (AMB) | payer MEDICAID, SELFPAY ==
--- NOTE | 2024-12-10 13:38 | A.OFFVIS_ITS ---
Intake Visit Reasons: Ultrasound follow up [employer] Required: Yes [employer] Language: Respiratory Therapy Assistant Services: [employer] Present (in office ) [employer] Name: VONDA Ruvalcaba Information Interpreted: non-clinical & clinical Allergies simvastatin Allergy (Unknown, Verified 10/28/24 18:58) nausea, vomiting and dizziness HPI Comments Details: The patient is schedule telehealth visit for follow-up regarding pelvic ultrasound. The patient is having heavy menstrual cycles in spite of cyclic Provera use, and the last 2 months missed her menstrual cycle. Pelvic ultrasound done in 12/19 showed the following: Anteverted uterus is enlarged, 10.0 x 6.0 x 6.7 cm, previously 12.7 x 6.7 x 8.5 cm. Heterogeneous myometrium, anterior lower uterine segment fibroid 2.6 x 2.0 x 2.1 cm, previously 3.0 x 2.6 x 2.5 cm; intramural fibroid in the left posterior uterine body 3.5 x 3.5 x 3.8 cm, not seen before. The endometrium is not well seen, grossly unremarkable, 5 mm in thickness. Nabothian cysts noted. Normal right ovary, 4.0 x 2.8 x 2.3 cm. No abnormal vascular flow. Dominant follicle 2.9 cm. Normal left ovary, 1.9 x 1.3 x 1.5 cm. No abnormal vascular flow. No free fluid. Impression: Uterine fibroids. Last EMB was in 12/18 was negative endometrial hyperplasia and/or malignancy Last co testing was negative in 09/18 [facility] Medical History Elevated cholesterol Helicobacter pylori (H. pylori) Irritable bowel syndrome Gastroesophageal reflux disease Abnormal uterine bleeding (AUB) Heavy menses Diabetes mellitus Surgical History History of esophagogastroduodenoscopy (EGD) Hx of colonoscopy H/O LEEP Family History Father Diabetes HTN (hypertension) Mother Diabetes Paternal Grandfather Diabetes Maternal Grandfather Colon cancer Social History Household Members: Spouse and Children Housing: House Alcohol intake: never Patient Tobacco Use Status: Never used Tobacco Current occupational status: unemployed Sexual orientation: Straight/Heterosexual Gender identity: Female Female Reproductive History Menstrual Age of Menarche: 10 Review of Systems Const All systems reviewed & are unremarkable except as noted in HPI and below Reports as per HPI and Reports no additional complaints GI Reports no additional complaints Reports no additional complaints Telehealth Telehealth Telehealth Platform: [employer] Education Location of provider rendering services: practice address Location of patient: address on file Patient Identification confirmed using: Name, : Yes Telehealth method: video Patient verbally consented to treatment: Yes Patient verbally consented to billing insurance company: Yes Patient informed of any privacy concerns related to visit: Yes Minutes spent on Phone/Video with Pt.: 5 Assessment & Plan Assessment & Plan (1) Uterine myoma: Code(s): D25.9 - Leiomyoma of uterus, unspecified Category: Medical Plan: Discussed with the patient the findings on pelvic ultrasound & the risk of myosarcoma; in addition reviewed with the patient that malignancy and pre malignancy cannot be ruled out without hysterectomy for pathological evaluation ; furthermore, explained to the patient the limitation of pelvic ultrasound and endometrial biopsy in the setting. Discussed with the patient the options of treatment including expectant management versus hysterectomy; the pros and cons, risks benefits of each oscar smith were discussed with the patient including the fact that in cases of myosarcoma, surgical treatment can lead to early diagnosis and positively affects the prognosis; after further discussion, the patient decided to proceed with expectant management. Will repeat pelvic ultrasound periodically. Instructions given to patient to call in case any of the following occurs: pressure symptoms, abnormal uterine bleeding, pelvic pain; and to schedule a six-months pelvic ultrasound (order placed) and a follow-up appointment . All questions answered, the patient verbalized understanding and agreed with the plan . (2) Abnormal uterine bleeding (AUB): Code(s): N93.9 - Abnormal uterine and vaginal bleeding, unspecified Category: Medical Plan: Will order CBC, hCG, TSH, FSH/LH and schedule a 2 week EMB appointment with pelvic exam/GC/CT. All questions answered, the patient verbalized understanding. I spent a total of 20 minutes reviewing the chart, talking to the patient via video and documenting in the medical record. Orders: Orders HCG Quantitative Today N93.9 - Abnormal uterine and vaginal bleeding, unspecified TSH reflex Free T4 Today N93.9 - Abnormal uterine and vaginal bleeding, unspecified Lutenizing Hormone Today N93.9 - Abnormal uterine and vaginal bleeding, unspe cified Follicle Stimulating Hormone Today N93.9 - Abnormal uterine and vaginal bleeding, unspecified Complete Blood Count no Diff Today N93.9 - Abnormal uterine and vaginal bleeding, unspecified Coding Level of Care Code Tele Est Pt Level 3 (57225) Diagnoses Uterine myoma D25.9 Abnormal uterine bleeding (AUB) N93.9
--- OUTSIDE RECORDS SUMMARY | 2024-12-10 14:29 | XMS_ITS | Clinical Summary ---
Author Organization [employer] Address [address] [place] [address] 7 [place] [address] Care Team Providers Care Conditioner Tumbler Name Role Phone Ramiro Lowe RAYNE Primary Care Provider [phone] Allergies No known active allergies Medications glucose blood (FREESTYLE LITE) test stripIndications :Hyperlipidemia associated with type 2 diabetes mellitus (CMS/HCC) Test blood sugar three times daily 100 each 9 022 Active TRUEplus Lancets 33G miscIndications: Type 2 diabetes mellitus with hyperlipidemia (CMS/HCC) (CMS/[facility]) TEST BLOOD SUGAR THREE TIMES DAILY 100 each 11 023 Active Blood Glucose Monitoring Suppl (FreeStyle Lite) w/Device kitIndications:T ype 2 diabetes mellitus with hyperlipidemia (CMS/HCC) (CMS/[facility]) 1 each if needed in the morning, [...] response 4 tablet 024 Active Continuous Glucose Client Relations Specialist (FreeStyle Robby 2 [place]) deviceIndication s:Type 2 diabetes mellitus with hyperlipidemia (CMS/HCC) ([facility]) Scan sensor every 8 hours 1 each 024 Active Continuous Glucose Sensor (FreeStyle Robby 2 Sensor) miscIndications: Type 2 diabetes mellitus with hyperlipidemia (CMS/HCC) ([facility]) Apply 1 sensor every 14 days 2 [...] ype 2 diabetes mellitus with hyperlipidemia (CMS/HCC) ([facility]) INJECT 20 UNITS SUBCUTANEOUSLY AT BEDTIME 15 mL 3 024 Active Pentips Generic Pen Crumrod 32G X 4 MM miscIndications: Type 2 diabetes mellitus with hyperlipidemia (CMS/HCC) ([facility]),Type 2 diabetes mellitus with other specified complication, with long-term current use of insulin ([facility]) USE EVERY DAY 100 each 5 025 Active atorvastatin (Lipitor) 40 MG tabletIndication s:Type 2 diabetes mellitus with hyperlipidemia (CMS/HCC) ([facility]),High cholesterol TAKE 1 TABLET BY MOUTH ONCE DAILY 90 tablet 3 025 Active DULoxetine (Cymbalta) [address] capsuleIndicatio ns:Fibromyalgia TAKE 1 CAPSULE BY MOUTH EVERY DAY 30 capsule 1 025 Active Ozempic, 0.25 or 0.5 MG/DOSE, 2 MG/3ML solution pen-injectorIndi cations:Type 2 diabetes mellitus with hyperlipidemia (CMS/HCC) ([facility]) INJECT 0.5 MG SUBCUTANEOUSLY EVERY 7 DAYS [...] s:Type 2 diabetes mellitus with hyperlipidemia (CMS/HCC) ([facility]) TAKE 1 TABLET BY MOUTH EVERY DAY WITH A MEAL. DO NOT BREAK, CRUSH, DISSOLVE OR CHEW. 90 tablet 025 Active atorvastatin (Lipitor) 40 MG tabletIndication s:High cholesterol Take 1 tablet (40 mg) by mouth in the morning. 90 tablet 023 Discontinued(R eorder (will not trigger notification to Pharmacy)) Active Problems Problem Noted Date Diagnosed Date Fibromyalgia 08/15/2022 Type 2 diabetes mellitus with hyperlipidemia ( S/HCC) 08/15/2022 Essential hypertension 06/15/2022 Encounters Date Type Department Care Team Description 11/03/2024 Refill [facility] [address] [place] [address] Ramiro Lowe ANP Type 2 diabetes mellitus with hyperlipidemia (CMS/HCC) ([facility]); Essential hypertension; Type 2 diabetes mellitus with hyperlipidemia (CMS/HCC) ([facility]) 10/28/2024 Orders Only GENERIC EXTERNAL DATA DEPARTMENT Provider, Generic External Data 10/24/2024 Refill [facility] [address] [place] [address] Ramiro Lowe ANP Type 2 diabetes mellitus with hyperlipidemia (CMS/HCC) ([facility]/HCC) 10/22/2024 Refill [facility] [address] [place] [address] Ramiro Lowe ANP Type 2 diabetes mellitus with hyperlipidemia (CMS/HCC) ([facility]) 09/30/2024 Telephone [facility] [address] [place] [address] Ramiro Lowe ANP December recall from Last 3 Months Immunizations Immunization Administration [...] Description 01/22/2025 2:30 PM EDT Office Visit [facility] [address], [place] [phone] Ramiro Lowe, ANP [address] [place] [address] Health Maintenance Due Date Last Done Comments [...] (2 of 2 - PCV) 04/25/2019 04/25/2018 COVID-19 Vaccine (3 - season) 2024 10/20/2020, 09/22/2020 Diabetes: Foot Exam 02/24/2024 02/23/2023 Diabetes: Urine Protein Screening 04/05/2024 04/05/2023, 03/04/2021 Diabetes: Hemoglobin A1C 04/23/2024 024, 10/25/2023, 07/09/2023, Additional history exists Mammogram 12/13/2024 12/14/2023, 11/25, 12/04/2022 SDOH Screening 01/03/2025 01/04/2024 Depression Screening 01/21/2025 01/22/2024, 01/22/20 24 Influenza Vaccine (#1) 2025 , 04/18/2021, 04/25/2018, Additional history exists Lipid Panel 01/29/2025 01/30/2024, 11/0 01/2023, 03/04/2021 Zoster Vaccines (1 of 2) 2025 Eye Exam 02/21/2025 02/22/2024, 01/27, 02/22/2024, Additional history exists Tobacco Screening 02/27/2025 02/28/2024 Cervical Cancer Screening 05/13/2026 HPV/Cotest 05/13/2026 05/13/2021, 05/13/2021 Pap Smear 05/13/2026 05/13/2021 Colonoscopy 06/17/2034 06/17/2024, 11/14/2022 Colorectal Cancer Screening 06/17/2034 RSV Patients and Patients Aged 60 years [...] Procedure Name Priority Date/Time Associated Diagnosis Comments US PELVIS TRANSVAGINAL Routine 11/27/2024 2:[address] HEAD WO CONTRAST Routine 10/28/2024 8:42 PM EDT C-REACTIVE PROTEIN Routine 10/28/2024 7: 05 PM EDT SED RATE BY MODIFIED WESTERGREN Routine 10/28/2024 7:05 PM EDT CBC WITH AUTO DIFFERENTIAL Routine 10/28/2024 7:05 PM EDT HCG, TOTAL, QN Routine 10/28/2024 7:05 PM EDT BASIC METABOLIC PANEL Routine 10/28/2024 7:05 PM EDT HM COLONOSCOPY Routine 06/17/2024 HEPATITIS C AB W/REFL TO HCV RNA, [...] Type 2 diabetes mellitus with hyperlipidemia (CMS/HCC) ZZZ HISTORICAL HPV E6/E7 RFLX PARTHA 16 18/45 Routine 05/13/2021 2:07 PM EST HM PAP/HPV Routine 05/13/2021 from Last 3 Months or Most Recently Relevant to Health Maintenance Results * US Pelvis Transvaginal (11/27/2024 2:12 PM EDT) Anatomical Region Laterality Modality Pelvis Ultrasound 11/27/2024 2:12 PM EDT Narrative 11/27/2024 2:14 PM EDT [place] [address] Ultrasound Report Signed Patient: Radha Wellington MR#: [id number] : 1975 Acct:[id number] Age/Sex: 49 / F ADM Date: 11/26/24 Loc: .US Attending Dr: Aaron De Jesus MD Ordering Physician: Aaron De Jesus MD Date of Service: 11/26/24 Procedure(s): US pelvic and transvaginal Accession Number(s): [id number] cc: RAMIRO LOWE FIRE EXTINGUISHER CHARGER; Aaron De Jesus MD CLINICAL HISTORY: N93.9 - Abnormal uterine and vaginal bleeding, unspecified Ultrasound of the female pelvis Comparison: US/CO/SR - US PELVIC AND TRANSVAGINAL - 08/09/21 14:23 EDT Technique: Grayscale ultrasound with assistance of color Doppler. Transabdominal scanning performed for overall anatomy. Transvaginal scanning performed for better anatomic delineation. Findings: Anteverted uterus is enlarged, 10.0 x 6.0 x 6.7 cm, previously 12.7 x 6.7 x 8.5 cm. Heterogeneous myometrium, anterior lower uterine segment fibroid 2.6 x 2.0 x 2.1 cm, previously 3.0 x 2.6 x 2.5 cm; intramural fibroid in the left posterior uterine body 3.5 x 3.5 x 3.8 cm, not seen before. The endometrium is not well seen, grossly unremarkable, 5 mm in thickness. Nabothian cysts noted. Normal right ovary, 4.0 x 2.8 x 2.3 cm. No abnormal vascular flow. Dominant follicle 2.9 cm. Normal left ovary, 1.9 x 1.3 x 1.5 cm. No abnormal vascular flow. No free fluid. Impression: Uterine fibroids. This document has been electronically signed by: Sasha Hodges MD on 11/27/2024 14:12:45 Dictated By: Sasha Hodges MD Signed By: <Electronically signed by Sasha Hodges MD in OV> 11/27/24 1413 DD/ 1412 TD/TT: 11/27/24 1412 Chief Dispatcher: Procedure Note Donotuseinterpreter, Image - 11/27/2024 [place] [address] Ultrasound Report Signed Patient: Fe Wellington#: [id number] : 1975Acct:[id number] Age/Sex: 49 / FADM Date: 11/26/24 Loc: .US Attending Dr: Aaron De Jesus MD Ordering Physician: Aaron De Jesus MD Date of Service: 11/26/24 Procedure(s): US pelvic and transvaginal Accession Number(s): [id number] cc: RAMIRO LOWE FIRE EXTINGUISHER CHARGER; Aaron De Jesus MD CLINICAL HISTORY: N93.9 - Abnormal uterine and vaginal bleeding,unspecified Ultrasound of the female pelvis Comparison: US/CO/SR - US PELVIC AND TRANSVAGINAL - 08/09/21 14:23 EDT Technique: Grayscale ultrasound with assistance of color Doppler. Transabdominal scanning performed for overall anatomy. Transvaginal scanning performed for better anatomic delineation. Findings: Anteverted uterus is enlarged, 10.0 x 6.0 x 6.7 cm, previously 12.7 x 6.7 x 8.5 cm. Heterogeneous myometrium, anterior lower uterine segment fibroid 2.6 x 2.0 x 2.1 cm, previously 3.0 x 2.6 x 2.5 cm; intramural fibroid in the left posterior uterine body 3.5 x 3.5 x 3.8 cm, not seen before. The endometrium is not well seen, grossly unremarkable, 5 mm in thickness. Nabothian cysts noted. Normal right ovary, 4.0 x 2.8 x 2.3 cm. No abnormal vascular flow. Dominant follicle 2.9 cm. Normal left ovary, 1.9 x 1.3 x 1.5 cm. No abnormal vascular flow. No free fluid. Impression: Uterine fibroids. This document has been electronically signed by: Sasha Hodges MD on 11/27/2024 14:12:45 Dictated By: Sasha Hodges MD Signed By: <Electronically signed by Sasha Hodges MD in OV> 11/27/24 1413 DD/ 1412 TD/TT: 11/27/24 1412 Chief Dispatcher: us [facility] External Provider IMG US PROCEDURES Edited Result - Final * CT Head w/o Contrast (10/28/2024 8:42 PM EDT) Anatomical Region Laterality Modality Head, Neck Computed Tomogra phy 10/28/2024 8:42 PM EDT Narrative 10/28/2024 8:43 PM EDT [place] [address] CT Scan Report Signed Patient: Radha Wellington MR#: [id number] : 1975 Acct:[id number] Age/Sex: 49 / F ADM Date: 10/28/24 Loc: HO.ED Attending Dr: Ordering Physician: Ousmane Clayton Date of Service: 10/28/24 Procedure(s): CT head/brain wo IV con Accession Number(s): [id number] cc: Ousmane Clayton; RAMIRO LOWE NP Report Number: [id number]: Total DLP = 694.00 mGy-cm CLINICAL HISTORY: [...] Villegas MD Signed By: <Electronically signed by Crhis Villegas MD in OV> 10/28/242041 DD/ 41 TD/TT: 10/28/242041 Chief Dispatcher: Procedure Note Donotphyllisinterpreter, Image - 10/28/[address] [place] [address] [address] Scan Report Signed Patient: Radha WellingtonMR#: [id number] : 1975Acct:[id number] Age/Sex: 49 / FADM Date: 10/28/24 Loc: HO.ED Attending Dr: Ordering Physician: Ousmane Clayton Date of Service: 10/28/24 Procedure(s): CT head/brain wo IV con Accession Number(s): [id number] cc: Ousmane Clayton; RAMIRO LOWE NP Report Number: [id number]: Total DLP = 694.00 mGy-cm CLINICAL HISTORY: [...] in OV> 10/28/242041 DD/ 41 TD/TT: 10/28/242041 Chief Dispatcher: [facility] External Provider IMG CT PROCEDURES Edited Result - Final * (ABNORMAL) CBC auto differential (10/28/2024 7:05 PM EDT) White Blood Count 5.4 4.8 - 10.8 X10*3/uL [facility] Red Blood Count 5.02 4.20 - 5.50 X10*6/uL [facility] Hemoglobin 15.4 12.0 - 16.0 g/dl [facility] Hematocrit 45.4 37.0 - 47.0 % [facility] Mean Corpuscular Volume 90.4 80.0 - 98.0 fL [facility] Mean Corpuscular Hemoglobin 30.7 27.0 - 33.0 pg [facility] Mean Corpuscular HGB Conc 33.9 31.0 - 35.0 g/dl [facility] Red Cell Distribution Width 13.0 11.0 - 16.0 % [facility] Platelet Count 228 160 - 400 X10*3/uL [facility] Mean Platelet Volume 11.4 9.4 - 12.3 fL [facility] Neutrophils Percent Auto 68.7 45 - 73 % [facility] Imm Gran Pct Auto 0.6(H) 0.0 - 0.4 % [facility] Lymphocytes Percent Auto 20.3 20 - 40 % [facility] Monocytes Percent Auto 7.8 2 - 11 % [facility] Eosinophils Percent Auto 2.0 0 - 4 % [facility] Basophils Percent Auto 0.6 0 - 2 % [facility] NRBC Pct Auto 0.0 0.0 - 0.2 /100WBC [facility] Neutrophils Absolute Auto 3.7 2.0 - 8.3 x10*3/uL [facility] Imm Gran Abs Auto 0.03 0.00 - 0.03 X10*3/uL [facility] Lymphocytes Absolute Auto 1.1(L) 1.2 - 4.9 X10*3/uL [facility] Monocytes Absolute Auto 0.4 0.1 - 1.2 X10*3/uL [facility] Eosinophils Absolute Auto 0.1 0.0 - 0.4 X10*3/uL [facility] Basophils Absolute Auto 0.0 0.0 - 0.2 X10*3/uL [facility] NRBC Abs Auto 0.000 0.0 - 0.012 X10*3/uL [facility] 10/28/2024 7:05 PM EDT 10/28/2024 7:11 PM EDT us Generic External Data Provider LAB BLOOD ORDERAB LES Final Result Performing Organization Address [facility] Co de Phone Number [facility] [address] [place] [phone] * Sed Rate by Modified Davidren (10/28/2024 7:05 PM EDT) Erythrocyte Sedimentation Rate 19 0 - 20 MM/HR [facility] Comment:Patients with polycy themia and many hemoglobin abnormalitiesmay have depressed sed rates whereas patients with anemiamay have elevated sed rates. 10/28/2024 7:05 PM EDT 10/28/2024 7:11 PM EDT us Generic External Data Provider LAB BLOOD ORDERAB LES Final Result Performing Organization Address [facility] de Phone Number [facility] [address] [place] [phone] * C-reactive Protein (10/28/2024 7:05 PM EDT) C Reactive Protein 0.35 < or = 0.50 mg/dL [facility] 10/28/2024 7:05 PM EDT 10/28/2024 7:11 PM EDT us Generic External Data Provider LAB BLOOD ORDERAB LES Final Result Performing Organization Address [facility] Co de Phone Number [facility] [address] [place] [phone] * hCG, Total, Quantitative (10/28/2024 7:05 PM EDT) HCG Quantitative <2 mIU/mL [facility] Comment:Weeks post LMP Appro ximate hCG(Last Menstrual Period) Range (mIU/ml)3 - 4 weeks 9 - 1304 - 5 weeks 75 - 2,6005 - 6 weeks 850 - 20,8006 - 7 weeks 4000 - 100,2007 - 12 weeks 11,500 - 289,58824 - 16 weeks 18,300 - 137,92175 - 29 weeks (2nd trimester) 1,400 - 53,11023 - 41 weeks (3rd trimester) 940 - [...] Provider LAB BLOOD ORDERAB LES Final Result [facility] [address] [place] [phone] [phone] * (ABNORMAL) Basic Metabolic Panel (10/28/2024 7:05 PM EDT) Sodium 140 135 - 145 mmol/L [facility] Potassium 3.3 3.3 - 5.1 mmol/L [facility] Chloride 106 96 - 108 mmol/L [facility] Carbon Dioxide 27 22 - 29 mmol/L [facility] Anion Gap 10(L) 12 - 20 [facility] Urea Nitrogen (BUN) 15 9 - 16 mg/dL [facility] Creatinine, Serum 0.65 0.5 - 1.4 mg/dL [facility] Creatinine Clr Calc Pharmacy 94.2 [facility] Comment:Provided height and weight: 165.1 cm,68.039 kg.eGFR (calculated from the MDRD study equation) and eCrCl(calculated from the Cockcroft-Gault equation) are based ondifferent parameters and may not yield comparable results.If eCrCl result is absurd, please check patient'sheight/weight. Estimated Glomerular Filt Rate >60 [facility] Comment:Chronic Kidney Disea se: Estimated GFR < 60 mL/min/1.64a2Zpadgr Kidney Disease: Estimated GFR < 15 mL/min/1.73m2 Glucose 140(H) 60 - 115 mg/dL [facility] Calcium 9.3 8.4 - 10.2 mg/dL [facility] 10/28/2024 7:05 PM EDT 10/28/2024 7:11 PM EDT [facility] External Data Provider LAB BLOOD ORDERAB LES Final Result Performing Organization Address [facility]/ZIP Co de Phone Number [facility] [address] [place] [phone] * Hm Colonoscopy (06/17/2024) Pathologist [facility] Colonoscopy Normal Normal Narrative Yoanna Ch - 06/17/2024 Recommended 10 years. See see external hospital admission note on 06/17/2024 Historical Provider HEALTH MAINTENANCE Final Result * Hepatitis C Antibody with Reflex to HCV, RNA, Quantitative, Real-Time PCR (01/30/2024 8:38 AM EDT) [facility] Hepatitis C Antibody Nonreactive Nonreactive [facility] Comment:Antibodies to HCV no t detected; does not exclude early acuteHCV infection. Blood Venous blood specimen / Unknown 01/30/2024 8:38 AM EDT 01/30/2024 10:56 AM EDT [facility] LAB BLOOD ORDERABLES Final Resul t Performing Organization Address City/[facility]/ZIP Co de Phone Number [facility] [address] [place] [phone] [phone] * HIV-1/2 Antigen and Antibodies, Fourth Generation, with Reflexes (01/30/2024 8:38 AM EDT) Pathologist [facility] HIV AB/AG Nonreactive Nonreactive [facility] [...] below the limit ofdetection of this assay.The [employer] HIV Ag/Ab Combo assay result andsupplemental assay results should be interpreted inconjunction with the patient's clinical presentation,history and other laboratory results. If the results areinconsistent with clinical evidence, additional testing issuggested to confirm the result. Blood Venous blood specimen / Unknown 01/30/2024 8:38 AM EDT 01/30/2024 10:56 AM EDT [facility] LAB BLOOD ORDERABLES Final Resul t [facility] [address] [place] [phone] * (ABNORMAL) Lipid Panel, Standard (01/30/2024 8:38 AM EDT) Triglycerides 118 <150 mg/dL [facility] Comment:Desirable Triglyceri de: less than 150 mg/dLBorderline High Triglyceride 150-199 mg/dLHigh Triglyceride: 200-499 mg/dLVery High Triglyceride: greater than or equal to 5OO mg/dL Cholesterol 215(H) <200 mg/dL [facility] Comment:Desirable Cholestero l: less than 200 mg/dLBorderline High Cholesterol: 200-239 mg/dLHigh Cholesterol: greater than 239 mg/dL LDL Cholesterol Calculated 140(H) <100 mg/dL [facility] Comment:Desirable LDL: less than 100 mg/dLNear Optimal/Above Optimal LDL: 110- 129 mg/dLBorderline High LDL: 130-159 mg/dLHigh LDL: 160-189 mg/dLVery High LDL: greater than or equal to 190 mg/dL HDL Cholesterol 52 >40 mg/dL [facility] Comment:Desirable HDL: great er than 40 mg/dL Note: This HDL assay may give artificially low results in patients with liver disease. Blood Venous blood specimen / Unknown 01/30/2024 8:38 AM EDT 01/30/2024 10:56 AM EDT us Ramiro Lowe ANP LAB BLOOD ORDERABLES Final Resul t [facility] [address] [place] [phone] * (ABNORMAL) POCT HGB A1C (01/22/2024 1:51 PM EDT) Hemoglobin A1C 8.6(A) 4.0 - 6.0 % QC Media Lot # [id number] Lot# Expiration Date Blood 01/22/2024 1:51 PM EDT Ramiro Lowe ANP POINT OF CARE TEST ENTER/EDIT OR DERABLES Final Result * BI Mammogram Screening Tomosynthesis Bilateral (12/14/2023 11:53 AM EDT) Anatomical Region Laterality Modality Breast Bilateral Mammography 12/14/2023 11:5 3 AM EDT Narrative 01/08/2024 2:50 PM EDT [address] [place] [address] Mammography Report Signed Patient: Radha Wellington MR#: [id number] : 1975 Acct:[id number] Age/Sex: 48 / F ADM Date: 12/14/23 Loc: K[facility]AS[facility] Attending Dr: Aaron De Jesus MD Ordering Physician: Aaron De Jesus MD Results: 1Negativ e Date of Service: 12/14/23 Follow Up: 1 Year From Orig inal Mammogram Procedure(s): MM tomosynthesis screening BI Accession Number(s): [id number] cc: RAMIRO LOWE FIRE EXTINGUISHER CHARGER; Aaron De Jesus MD EXAMINATION: MM SCREENING [...] in OV> 01/08/24 1445 DD/ 1153 TD/TT: Chief Dispatcher: Procedure Note Donotuseinterpreter, Image - 01/08/2024 [facility] [address] [place], [place] [address] Mammography Report Signed Patient: Radha WellingtonMR#: [id number] : 1975Acct:[id number] Age/Sex: 48 / FADM Date: 12/14/23 Loc: KWASI Attending Dr: Aaron De Jesus MD Ordering Physician: Aaron De Jesus MDResults: 1Negativ e Date of Service: 12/14/23Follow Up: 1 Year From Orig ina Mammogram Procedure(s): MM tomosynthesis screening BI Accession Number(s): [id number] cc: RAMIRO LOWE NP; Aaron De Jesus [...] in OV> 01/08/24 1445 DD/ 1153 TD/TT: Chief Dispatcher: [facility] External Provider IMG BI PROCEDURES Final Result * Albumin, Random Urine W/Creatinine (04/05/2023 8:43 AM EST) Creatinine, Urine 84.26 mg/dL [facility] Microalbumin Urine 10.0 mg/L [facility] Microalbum Creatinine Ratio Ur 11.8 <30 ug/mg cr [facility] Comment:Albumin/Creatinine R atio Reference Ranges: Normal: < 30 ug/mg creatinine Microalbuminuria: 30 - 300 ug/mg creatinineClinical Albuminuria: > 300 ug/mg creatinine Urine (Urine, Random) 04/05/2023 8:43 AM EST 04/05/2023 11:13 AM EST [facility] LAB URINE ORDERABLES Final Resul t [facility] [address] [place] [phone] * HPV E6/E7 RFLX PARTHA 16 18/45 (05/13/2021 2:07 PM EST) HPV mRNA E6/E7 rflx Not Detected Not Detected [facility] Comment: Methodology: Emt/Dispatcher-Mediated Amplification This assay detects E6/E7 viral messenger RNA (mRNA) from 14 high-risk HPV types (16,18,31,33,35,39,45,51,52,56,58,59,66,68). The analytical performance characteristics of this assay have been determined by [employer]. The modifications have not been cleared or approved by the FDA. This assay has been validated pursuant to the CLIA regulations and is used for clinical purposes. For additional information, please refer to http://education.ComH[employer]/faq/AEK263y0 (This link if provided for information/ educational purposes only.) THIS TEST WAS PERFORMED AT: [facility] [address] [place] [address] [address] [address] LYNETTE RICHARDS MD 05/13/2021 2:07 PM EST Ashley Sue HISTORICAL/NON ORDERABLE LABS Fi nal Result Performing Organization Address City/State/[facility] Co de Phone Number [facility] [address] [place] [address] * Pap Smear (05/13/2021) Historical Provider HEALTH MAINTENANCE Final Result from Last 3 Months or Most Recently Relevant to Health Maintenance Insurance [facility] [address] [place] [phone] Care Teams Conditioner Tumbler Relationship Specialty Start Date End Date Ramiro Lowe ANP [address] [place] [address] [phone] PCP - General Family Medicine 06/01/22
--- OUTSIDE RECORDS SUMMARY | 2024-12-10 14:29 | XMS_ITS | Clinical Summary ---
Author Organization [facility] Address [address] [place] [address] Care Team Providers Care House Painting Instructor Name Role Phone Unavailable Primary Care Provider [...]
== END 2024-12-10 14:00 | disposition home or self-care (01) ==
LOC: HO.HWS 13:38
PROVIDERS: PCP Nurse Practitioner Primary Care; Visit Provider Obstetrics & Gynecology
DX: D25.9 Leiomyoma of uterus, unspecified (principal); N93.9 Abnormal uterine and vaginal bleeding, unspecified
CPT/HCPCS: 99213

== ENCOUNTER 2024-12-26 07:12 | Outpatient (REF) | payer MEDICAID, SELFPAY ==
[2024-12-26 08:11] LABS: Hematocrit 46.3 % (37.0-47.0); Hemoglobin 15.4 g/dl (12.0-16.0); Mean Corpuscular HGB Conc 33.3 g/dl (31.0-35.0); Mean Corpuscular Hemoglobin 29.8 pg (27.0-33.0); Mean Corpuscular Volume 89.6 fL (80.0-98.0); NRBC Abs Auto 0.000 X10*3/uL (0.0-0.012); NRBC Pct Auto 0.0 /100WBC (0.0-0.2); Platelet Count 186 X10*3/uL (160-400); Red Blood Count 5.17 X10*6/uL (4.20-5.50); White Blood Count 3.5 X10*3/uL (4.8-10.8)
[2024-12-27 08:39] LABS: Follicle Stimulating Hormone 21.9 mIU/mL
== END 2024-12-26 07:13 | disposition home or self-care (01) ==
LOC: HO.LAB 07:12
PROVIDERS: PCP Nurse Practitioner Primary Care; Visit Provider Obstetrics & Gynecology
DX: N93.9 Abnormal uterine and vaginal bleeding, unspecified (principal)
CPT/HCPCS: 36415; 83001; 83002; 84443; 84702; 85027

== ENCOUNTER 2025-02-10 15:49 | Outpatient (AMB) | payer MEDICAID, SELFPAY ==
--- NOTE | 2025-02-10 15:58 | MHC.OFFVIS ---
Vital Signs 02/10/25 16:05 Height 5 ft 5 in Weight 150 lb BMI 25.0 Intake Visit Reasons: EMB Supervisor Blast Furnace Required: Yes Supervisor Blast Furnace Language: Veterinary Practice Manager Services: Supervisor Blast Furnace Present (in person) Supervisor Blast Furnace Name: Carissa FERRARI Information Interpreted: non-clinical & clinical Human Services Manager: Human Services Manager Present (Carissa FERRARI) Accompanied by: Self / Same As Patient Allergies simvastatin Allergy (Unknown, Verified 02/10/25 16:07) nausea, vomiting and dizziness Is last menstrual period known: Yes HPI Comments Details: Presenting for EMB complaining of vulvovaginal itching or last few days no foul odor or vaginal discharge PFSH Medical History Elevated cholesterol Helicobacter pylori (H. pylori) Irritable bowel syndrome Gastroesophageal reflux disease Abnormal uterine bleeding (AUB) Heavy menses Diabetes mellitus Surgical History History of esophagogastroduodenoscopy (EGD) Hx of colonoscopy H/O LEEP Family History Father Diabetes HTN (hypertension) Mother Diabetes Paternal Grandfather Diabetes Maternal Grandfather Colon cancer Social History Household Members: Spouse and Children Housing: House Alcohol intake: never Patient Tobacco Use Status: Never used Tobacco Current occupational status: unemployed Sexual orientation: Straight/Heterosexual Gender identity: Female Female Reproductive History Menstrual Age of Menarche: 10 control method: other (vasectomy) Physical Exam Vital Signs: BMI result Body Mass Index 25.0 Office Procedures Endometrial Biopsy Details: The patient was counseled regarding the indication and benefits of endometrial sampling to rule out endometrial pathology including not limited to endometrial hyperplasia or endometrial cancer and others; The alternatives (Either do nothing vs. hysteroscopy D&C) & the risks were discussed with the patient including but not limited: pain, uterine perforation, bleeding, infection, possible injury to bladder, bowel, ureter, possible need for blood transfusion with all its possible risks. The patient verbalized understanding all questions answered and signed consent. Urine test done in the office was negative The patient was placed into the dorsal lithotomy position; a speculum was inserted in the vagina. Using aseptic technique for the procedure, the cervix was cleansed with Betadine. The anterior lip of the cervix was grasped with a single tooth tenaculum. The uterus was sounded to 7 cm with a 4 mm Pipelle was used. Tissues samples were obtained and placed in formalin, in a patient labeled container and sent to the pathology department. At the end of the procedure, there was minimal bleeding noted The patient tolerated the procedure well and was discharged in good condition with the following instructions: Nothing in the vagina until the bleeding stops. No sex until the bleeding stops, to call if any of the following occurs: fever (>100.4), flu-like symptoms, abdominal pain, heavy bleeding, four smelling vaginal discharge. The patient was instructed to schedule a Follow up appointment in 2 weeks to discuss pathology results of the biopsy and treatment options. This note was generated with a voice recognition program. Some errors may have been overlooked during the review of this note. Sometimes these errors may affect the content or meaning of a given sentence. [id number] Biopsy Results AMB Test Urine AMB Test Urine Negative Last Edit by Carissa Morrow CMA on 02/10/25 16:09 Assessment & Plan Assessment & Plan (1) Abnormal uterine bleeding (AUB): Code(s): N93.9 - Abnormal uterine and vaginal bleeding, unspecified Category: Medical Plan: EMB done, see procedure note (2) Vulvovaginitis: Code(s): N76.0 - Acute vaginitis Category: Medical Plan: GC/CT, Bacterial Vaginosis panel taken, Terazol 0.8% q.h.s. for 3 days was sent to the patient's pharmacy. The patient was instructed to call if symptoms don't improve in 48 hours. Orders: Orders AMB HCG Urine Test Today Z32.02 - Encounter for test, result negative AMB Endometrial Biopsy Today N93.9 - Abnormal uterine and vaginal bleeding, unspecified Medications: New terconazole 0.8% 1 appful vaginal BEDTIME 20 grams 0RF 3 days Coding Level of Care Code Est Pt Level 3 (93420) Procedure Only Diagnoses Abnormal uterine bleeding (AUB) N93.9 Vulvovaginitis N76.0 CPT Codes Endometrial Biopsy - CPT: 21189-[id number] Biopsy ([id number])
[2025-02-10 16:05] VITALS: BMI 25.0
--- OUTSIDE RECORDS SUMMARY | 2025-02-10 18:57 | XMS_ITS | Encounter Summary ---
Author Organization [employer] Address [address] [place] [address] Care Team Providers Care Coroner'S Juror Name Role Phone Deidre Escobar Primary Care Provider [phone] Reason for Visit * Reason Comments Med Refill Encounter Details Date Type Department Care Team ([facility] st Contact Info) Description 2025 Refill [facility] [address] [place] [address] Deidre Escobar ANP [address] [place] [address] Type 2 diabetes mellitus with hyperlipidemia ([facility]/HCC) ([facility]) Social History Tobacco Use Types Packs/Day Years Used Date Smoking Tobacco: Never Passive Smoke Exposure: Never Smokeless Tobacco: Never Alcohol Use Standard Drinks/Week Comments Never 0 (1 standard drink = 0.6 oz pur e alcohol) Depression Answer Date Recorded Patient Health Questionnaire-9 Score 1 01/22/2025 Patient Health Questionnaire-9 Score 1 01/22/2025 Last PHQ-9: Questionnaire Data Not on file 0 01/22/2025 Housing Stability Answer Date Recorded What is your housing situation today? I have erik nuñez 01/15/[address] you li ve. Do you have problems with any of the following? None of the above 01/15/2025 Food Insecurity Answer Date Recorded Within the past 12 months, y ou worried that your food would run out before you got money to buy more: Never True 01/15/2025 Within the past 12 months,th e food you bought just didn't last and you didn't have enough money to get more: Never True Transportation Answer Date Recorded In the past 12 months, has l ack of transportation kept you from medical appts, meetings, work or from getting things needed for daily living? No 01/15/2025 Utilities Answer Date Recorded In the past 12 months, has t he electric, gas, oil or water company threatened to shut off services in your home? No 01/15/2025 Depression Answer Date Recorded Patient Health Questionnaire-2 Score 0 01/22/2025 Internet Access Answer Date Recorded Internet Access Q1 Yes 01/15/2025 Internet Access Q2 Not on file 01/15/2025 Comments No Sex and Gender Information Value Date Recorded Sex Assigned at Female 03/27/2022 10:26 AM EDT Legal Sex Female 10:26 AM EDT Gender Identity Female 03/27/2022 10:26 AM EDT Sexual Orientation Choose not to disclose 2021 10:26 AM EDT documented as of this encounter Plan of Treatment Upcoming Encounters Date Type Department Care Team (Late st Contact Info) Description 04/20/2025 3:15 PM EST Office Visit [facility] [address] [place] [id number] Deidre Escobar ANP [address] [place] [address] documented as of this encounter Visit Diagnoses Diagnosis Type 2 diabetes mellitus with hyperlipidemia (CMS/HCC) (CMS/HCC) documented in this encounter Additional Health Concerns Assessment Noted Time PHQ-9 Depression Total Score: 1 01/23/20 25 3:25 PM EDT documented as of this encounter Care Teams Coroner'S Juror Relationship Specialty Start Date End Date Deidre Escobar ANP [address] [place] [id number] PCP - General Family Medicine 06/01/22 documented as of this encounter
--- OUTSIDE RECORDS SUMMARY | 2025-02-10 18:57 | XMS_ITS | Clinical Summary ---
Author Organization [facility] Address [address] [place] [address] Care Team Providers Care Elevator Attendant Name Role Phone Unavailable Primary Care Provider [...] series) 1994 COVID-19 Vaccine (2023-2 5 season) 2025 Pneumococcal Vaccine: Pediat schuyler (0-5 Years) and At-Risk Patients (6 to 49 Years) Aged Out No longer eligible b ased on patient's age to complete this topic
--- OUTSIDE RECORDS SUMMARY | 2025-02-10 18:57 | XMS_ITS | Clinical Summary ---
Author Organization [employer] Address [address] [place] [address] 7 [place] [address] Care Team Providers Care Electrical Cad Designer Name Role Phone Shawn Ramiro MCLAIN Primary Care Provider [phone] Allergies No known active allergies Medications glucose [...] response 4 tablet 024 Active Continuous Glucose Logistics Program Manager (FreeStyle Robby 2 [place]) deviceIndication s:Type 2 diabetes mellitus with hyperlipidemia (CMS/HCC) ([facility]) Scan sensor every 8 hours 1 each 024 Active Continuous Glucose Sensor (FreeStyle Robby 2 Sensor) miscIndications: Type 2 diabetes mellitus with hyperlipidemia (CMS/HCC) ([facility]) Apply 1 sensor every 14 [...] ON DAY 1 OF MENSES 024 Active Pentips Generic Pen [place] 32G X 4 MM miscIndications: Type 2 diabetes mellitus with hyperlipidemia (CMS/HCC) ([facility]),Type 2 diabetes mellitus with other specified complication, with long-term current use of insulin ([facility]) USE EVERY DAY 100 each 5 025 Active atorvastatin (Lipitor) 40 MG tabletIndication s:Type 2 diabetes mellitus with hyperlipidemia (CMS/HCC) ([facility]),High cholesterol TAKE 1 TABLET BY MOUTH ONCE DAILY 90 tablet 3 025 Active Jardiance 25 MGIndications:Ty pe 2 diabetes mellitus with hyperlipidemia (CMS/HCC) ([facility]) TAKE 1 TABLET BY MOUTH EVERY MORNING 30 tablet 5 025 Active lisinopril 2.5 MG tabletIndication s:Type 2 diabetes mellitus with hyperlipidemia (CMS/HCC) ([facility]),Essent ial hypertension TAKE 1 TABLET BY MOUTH EVERY DAY 90 tablet 025 Active glipiZIDE XL (Glucotrol XL) 5 MG 24 hr tabletIndication s:Type 2 diabetes mellitus with hyperlipidemia (CMS/HCC) ([facility]) TAKE 1 TABLET BY MOUTH EVERY DAY WITH A MEAL. DO NOT BREAK, CRUSH, DISSOLVE OR CHEW. 90 tablet 025 Active DULoxetine (Cymbalta) [address] capsuleIndicatio ns:Fibromyalgia TAKE 1 CAPSULE BY MOUTH EVERY DAY 30 capsule 1 025 Active Tirzepatide (Mounjaro) 2.5 MG/0.5ML solution auto-injectorInd ications:Type 2 diabetes mellitus with hyperlipidemia (CMS/HCC) (CMS/HCC) Inject 2.5 mg under the skin 1 (one) time per week. 2 mL 025 Active Lantus SoloStar 100 UNIT/ML penIndications:T ype 2 diabetes mellitus with hyperlipidemia (CMS/HCC) (CMS/HCC) INJECT 20 UNITS SUBCUTANEOUSLY AT BEDTIME 15 mL 3 025 Active atorvastatin (Lipitor) 40 MG tabletIndication s:High cholesterol Take 1 tablet (40 mg) by mouth in the morning. 90 tablet 023 Discontinued(R eorder (will not trigger notification to Pharmacy)) dulaglutide (Trulicity) 4.5 MG/0.5ML solution pen-injector Inject under the skin 1 (one) time per week. 2024 Discontinued Lantus SoloStar 100 UNIT/ML penIndications:T ype 2 diabetes mellitus with hyperlipidemia (CMS/HCC) ([facility]) INJECT 20 UNITS SUBCUTANEOUSLY AT BEDTIME 15 mL 3 024 2024 Discontinued Ozempic, 0.25 or 0.5 MG/DOSE, 2 MG/3ML solution pen-injectorIndi cations:Type 2 diabetes mellitus with hyperlipidemia (CMS/HCC) (CMS/HCC) INJECT 0.5 MG SUBCUTANEOUSLY EVERY 7 DAYS IN THE ABDOMEN, THIGHS, OR UPPER ARM, ROTATE INJECTION SITES. 3 mL 2 025 2024 Discontinued Active Problems Problem Noted Date Diagnosed Date Fibromyalgia 08/15/2022 Type 2 diabetes mellitus with hyperlipidemia (CM S/HCC) 08/15/2022 Essential hypertension 06/15/2022 Encounters Date Type Department Care Team Description 2025 Refill [facility] [address] [place], [place] [phone] Ramiro Lowe ANP Type 2 diabetes mellitus with hyperlipidemia (CMS/HCC) (CMS/HCC) 01/22/2025 2:30 PM EDT Office Visit [facility] [address] [place] [address] Ramiro Lowe ANP Type 2 diabetes mellitus with hyperlipidemia (CMS/HCC) (CMS/HCC) (Primary Dx); Pain due to varicose veins of lower extremity 01/22/2025 Travel 01/15/2025 Patient Outreach [facility] [address] [place] [address] Ramiro Lowe ANP Pre-visit Planning (SDOH Screening negative and Tobacco screening negative) 12/31/2024 Refill [facility] [address] [facility] [place] [address] Ramiro Lowe ANP Fibromyalgia 12/26/2024 Orders Only GENERIC EXTERNAL DATA DEPARTMENT Provider, Generic External Data from Last 3 Months Immunizations Immunization Administration Dates Next Due Influenza injectable quadriv alent IIV4 with preservative 04/25/2018 Influenza injectable quadrivalent preservative f ree 02/23/2023,04/18/2021 Influenza, IIV3, injectable 05/13/2015 Moderna Covid-19 Vaccine 12+ 10/20/2020,09/23/19 21 Pneumococcal Conjugate PCV 20 01/22/2025 Pneumococcal Polysaccharide PPSV23 04/25/2018 Td (adult), 5 [...] Sign Reading Time Taken Comments Blood Pressure 120/70 01/22/2025 2:46 PM EDT Pulse 88 01/22/2025 2:46 PM EDT Temperature 36.4 C (97.6 F) 01/22/2025 2:46 PM EDT Respiratory Rate 20 01/22/2025 2:46 PM EDT Oxygen Saturation 98% 01/22/2025 2:46 PM EDT Inhaled Oxygen Concentration - - Weight 69 kg (152 lb 3.2 oz) 01/22/2025 2:46 PM EDT Height 165.1 cm (5' 5 ) 01/22/2025 2:46 PM EDT Body Mass Index 25.33 01/22/2025 2:46 PM EDT Plan of Treatment Upcoming Encounters Date Type Department Care Team (Late st Contact Info) Description 04/20/2025 3:15 PM EST Office Visit [facility] [address] [place] [address] Ramiro Lowe ANP [address] [place] [address] Health Maintenance Due Date Last Done Comments CT Colonography 1975 FIT DNA/Cologuard 1975 FIT 1975 FOBT 1975 Sigmoidoscopy 1975 Alcohol/Substance Use Screening 1987 Family Planning (PISQ) 1990 Hepatitis B Vaccines (1 of 3 - 19+ 3-dose series) 1994 Diabetes: Foot Exam 02/24/2024 02/23/2023 Diabetes: Urine Protein Screening 04/05/2024 04/05/2023, 03/04/2021 Mammogram 12/13/2024 12/14/2023, 11/25, 12/04/2022 COVID-19 Vaccine ( season) 2025 10/20/2020, 09/22/2020 Influenza Vaccine (#1) 2025 , 04/18/2021, 04/25/2018, Additional history exists Lipid Panel 01/29/2025 01/30/2024, 01/2023, 03/04/2021 Zoster Vaccines (1 of 2) 2025 Eye Exam 02/21/2025 02/22/2024, 01/27, 02/22/2024, Additional history exists Diabetes: Hemoglobin A1C 04/24/2025 025, 01/22/2024, 10/25/2023, Additional history exists SDOH Screening 01/15/2026 01/15/2025 Depression Screening 01/22/2026 01/22/2025, 01/23/20 25 Disability Screening 01/22/2026 01/22/2025 Tobacco Screening 01/22/2026 01/22/2025 Cervical Cancer Screening 05/13/2026 HPV/Cotest 05/13/2026 05/13/2021, 05/13/2021 Pap Smear 05/13/2026 05/13/2021 DTaP/Tdap/Td Vaccines (1 - Tdap) 01/22/2027 05/13/2015, 05/24/2014 Postponed from 05/14/2015 (Other Medical Reasons) Colonoscopy 06/17/2034 06/17/2024, 11/14/2022 Colorectal Cancer Screening 06/17/2034 RSV Patients and Patients Aged 60 years or older (1 - 1-dose 75+ series) 2050 HIV Screening Completed 01/30/2024, 03/04/2021 Hepatitis C Screening Completed 01/30/2024 Pneumococcal Vaccine: 50+ Years Completed 01/22/2025, 04/25/2018 HIB Vaccines Aged Out No longer eligi [...] Name Priority Date/Time Associated Diagnosis Comments POCT GLYCATED HEMOGLOBIN, TOTAL Routine 01/22/2025 2:51 PM EDT Type 2 diabetes mellitus with hyperlipidemia (CMS/HCC) (CMS/HCC) POCT GLUCOSE Routine 01/22/2025 2:48 PM EDT Type 2 diabetes mellitus with hyperlipidemia (CMS/HCC) (CMS/HCC) LH Routine 12/26/2024 7:18 AM EDT FSH Routine 12/26/2024 7:18 AM EDT HCG, TOTAL, QN Routine 12/26/2024 7:18 AM EDT TSH W/REFLEX TO FT4 Routine 12/26/2024 7 :18 AM EDT CBC Routine 12/26/2024 7:18 AM EDT US PELVIS TRANSVAGINAL Routine 11/27/2024 2:12 PM EDT HM COLONOSCOPY Routine 06/17/2024 HEPATITIS [...] Recently Relevant to Health Maintenance Results * (ABNORMAL) POCT HGB A1C (01/22/2025 2:51 PM EDT) Hemoglobin A1C 10.0(A) 4.0 - 5.7 % QC Media Lot # [id number] Lot# Expiration Date , Blood 01/22/2025 2:51 PM EDT us Ramiro MCLAIN POINT OF CARE TEST ENTER/EDIT OR DERABLES Final Result * (ABNORMAL) POCT Glucose (01/22/2025 2:48 PM EDT) Glucose Blood, POC 288(A) 60 - 200 mg/dL QC Media Lot # [id number] Lot# Expiration Date Blood Capillary blood specimen / Unknown 01/22/2025 2:48 PM EDT us Ramiro MCLAIN POINT OF CARE TEST ENTER/EDIT OR DERABLES Final Result * TSH with Reflex to Free T4 (12/26/2024 7:18 AM EDT) TSH reflex Free T4 1.80 0.32 - 4.0 uIU/mL [facility] 12/26/2024 7:18 AM EDT 12/26/2024 7:18 AM EDT us Generic External Data Provider LAB BLOOD ORDERAB LES Final Result [facility] [address] [place] [phone] * (ABNORMAL) CBC (12/26/2024 7:18 AM EDT) Pathologist [facility] White Blood Count 3.5(L) 4.8 - 10.8 X10*3/uL [facility] Red Blood Count 5.17 4.20 - 5.50 X10*6/uL [facility] Hemoglobin 15.4 12.0 - 16.0 g/dl [facility] Hematocrit 46.3 37.0 - 47.0 % [facility] Mean Corpuscular Volume 89.6 80.0 - 98.0 fL [facility] Mean Corpuscular Hemoglobin 29.8 27.0 - 33.0 pg [facility] Mean Corpuscular HGB Conc 33.3 31.0 - 35.0 g/dl [facility] Red Cell Distribution Width 12.5 11.0 - 16.0 % [facility] Platelet Count 186 160 - 400 X10*3/uL [facility] Mean Platelet Volume 11.4 9.4 - 12.3 fL [facility] NRBC Pct Auto 0.0 0.0 - 0.2 /100WBC [facility] NRBC Abs Auto 0.000 0.0 - 0.012 X10*3/uL [facility] 12/26/2024 7:18 AM EDT 12/26/2024 7:18 AM EDT us Generic External Data Provider LAB BLOOD ORDERAB LES Final Result Performing Organization Address [facility] Co de Phone Number [facility] [address] [place] [phone] [phone] * hCG, Total, Quantitative (12/26/2024 7:18 AM EDT) HCG Quantitative <2 mIU/mL [facility] Comment:Weeks post LMP Appro ximate hCG(Last Menstrual Period) Range (mIU/ml)3 - 4 weeks 9 - 1304 - 5 weeks 75 - 2,6005 - 6 weeks 850 - 20,8006 - 7 weeks 4000 - 100,2007 - 12 weeks 11,500 - 289,71039 - 16 weeks 18,300 - 137,25441 - 29 weeks (2nd trimester) 1,400 - 53,25132 - 41 weeks (3rd trimester) 940 - 60,000The Lee B- hCG assay is used for the early detection ofpregnancy; it cannot be used to diagnose any conditionunrelated to . If a B-hCG level is not supportedby the clinical evidence, results should be confirmed by analternative method (qualitative urine hCG, for example). 12/26/2024 7:18 AM EDT 12/26/2024 7:18 AM EDT us Generic External Data Provider LAB BLOOD ORDERAB LES Final Result Performing Organization Address [facility] Co de Phone Number [facility] [address] [place] [phone] * LH (12/26/2024 7:18 AM EDT) Lutenizing Hormone 16.1 mIU/mL [facility] Comment:Reference Range Fol licular Phase 1.9-12.5 Mid-Cycle Peak 8.7-76.3 Luteal Phase 0.5-16.9 Postmenopausal 10.0-54.7THIS TEST WAS PERFORMED AT:[facility] [place] [phone] RICHARDS MD 12/26/2024 7:18 AM EDT 12/26/2024 7:18 AM EDT us Generic External Data Provider LAB BLOOD ORDERAB LES Final Result Performing Organization Address [facility] de Phone Number [facility] [address] [place] [phone] * FSH (12/26/2024 7:18 AM EDT) Follicle Stimulating Hormone 21.9 mIU/mL [facility] Comment:Reference Range Foll icular Phase 2.5-10.2 Mid-cycle Peak 3.1-17.7 Luteal Phase 1.5- 9.1 Postmenopausal 23.0-116.3THIS TEST WAS PERFORMED AT:[facility] [place] [phone] RICHARDS MD 12/26/2024 7:18 AM EDT 12/26/2024 7:18 AM EDT Generic External Data Provider LAB BLOOD ORDERAB LES Final Result Performing Organization Address [facility] de Phone Number [facility] [address] [place] [phone] * US Pelvis Transvaginal (11/27/2024 2:12 PM EDT) Anatomical Region Laterality Modality Pelvis Ultrasound 11/27/2024 2:12 PM EDT Narrative 11/27/2024 2:14 PM EDT [address] [address] Ultrasound Report Signed Patient: Radha Wellington MR#: [id number] : 1975 Acct:[id number] Age/Sex: 49 / F ADM Date: 11/26/24 Loc: HO.US Attending Dr: Aaron De Jesus MD Ordering Physician: Aaron De Jesus MD Date of Service: 11/26/24 Procedure(s): US pelvic and transvaginal Accession Number(s): [id number] cc: RAMIRO LOWE CISSP; Aaron De Jesus MD CLINICAL HISTORY: N93.9 - Abnormal uterine and vaginal bleeding, unspecified Ultrasound of the female pelvis Comparison: US/LA/SR - US PELVIC AND TRANSVAGINAL - 08/09/21 [...] 11/27/24 1413 DD/ 1412 TD/TT: 11/27/24 1412 Aircraft Motor Mechanic: Procedure Note Donotuseinterpreter, Image - 11/27/[address] [address] Ultrasound Report Signed Patient: Radha WellingtonMR#: [id number] : 1975Acct:[id number] Age/Sex: 49 / FADM Date: 11/26/24 Loc: HO.US Attending Dr: Aaron De Jesus MD Ordering Physician: Aaron De Jesus MD Date of Service: 11/26/24 Procedure(s): US pelvic and transvaginal Accession Number(s): [id number] cc: RAMIRO LOWE CISSP; Aaron De Jesus MD CLINICAL HISTORY: N93.9 - Abnormal uterine and vaginal bleeding,unspecified Ultrasound of the female pelvis Comparison: US/LA/SR - US PELVIC AND TRANSVAGINAL - 08/09/21 [...] 11/27/24 1413 DD/ 1412 TD/TT: 11/27/24 1412 Aircraft Motor Mechanic: [facility] External Provider IMG US PROCEDURES Edited Result - Final * Hm Colonoscopy (06/17/2024) Colonoscopy Normal Normal Narrative Yoanna Ch - 06/17/2024 Recommended 10 years. See see external hospital admission note on 06/17/2024 Historical Provider HEALTH MAINTENANCE Final Result * Hepatitis C Antibody with Reflex to HCV, RNA, Quantitative, Real-Time PCR (01/30/2024 8:38 AM EDT) Hepatitis C Antibody Nonreactive Nonreactive [facility] Comment:Antibodies to HCV no t detected; does not exclude early acuteHCV infection. Blood Venous blood specimen / Unknown 01/30/2024 8:38 AM EDT 01/30/2024 10:56 AM EDT Ramiro Lowe [facility] LAB BLOOD ORDERABLES Final Resul t Performing Organization Address [facility]/ZIP Co de Phone Number [facility] [address] [place] [phone] * HIV-1/2 Antigen and Antibodies, Fourth Generation, with Reflexes (01/30/2024 8:38 AM EDT) HIV AB/AG Nonreactive Nonreactive [facility] Comment:HIV-1 p24 Ag and/or HIV-1/HIV-2 Ab not detected.A test result that is nonreactive does not exclude thepossibility of exposure to or infection with HIV-1 and/orHIV-2. Nonreactive results in this assay for individualswith prior exposure to HIV-1 and/or HIV-2 may be due toantigen and antibody levels that are below the limit ofdetection of this assay.The [employer] HIV Ag/Ab Combo assay result andsupplemental assay results should be interpreted inconjunction with the patient's clinical presentation,history and other laboratory results. If the results areinconsistent with clinical evidence, additional testing issuggested to confirm the result. Blood Venous blood specimen / Unknown 01/30/2024 8:38 AM EDT 01/30/2024 10:56 AM EDT Ramiro Lowe [facility] LAB BLOOD ORDERABLES Final Resul t Performing Organization Address City/[facility]/ZIP Co de Phone Number [facility] [address] [place] [phone] * (ABNORMAL) Lipid Panel, Standard (01/30/2024 8:38 AM EDT) Triglycerides 118 <150 mg/dL [facility] Comment:Desirable Triglyceri de: less than 150 mg/dLBorderline High Triglyceride 150-199 mg/dLHigh Triglyceride: 200-499 mg/dLVery High Triglyceride: greater than or equal to 5OO mg/dL Cholesterol 215(H) <200 mg/dL [facility] Comment:Desirable Cholestero l: less than 200 mg/dLBorderline High Cholesterol: 200-239 mg/dLHigh Cholesterol: greater than 239 mg/dL LDL Cholesterol Calculated 140(H) <100 mg/dL [facility] Comment:Desirable LDL: less than 100 mg/dLNear Optimal/Above Optimal LDL: 110- 129 mg/dLBorderline High LDL: 130-159 mg/dLHigh LDL: 160-189 mg/dLVery High LDL: greater than or equal to 190 mg/dL HDL Cholesterol 52 >40 mg/dL [facility] Comment:Desirable HDL: great er than 40 mg/dL Note: This HDL assay may give artificially low results in patients with liver disease. Blood Venous blood specimen / Unknown 01/30/2024 8:38 AM EDT 01/30/2024 10:56 AM EDT us [facility] LAB BLOOD ORDERABLES Final Resul t [facility] [address] [place] [phone] * BI Mammogram Screening Tomosynthesis Bilateral (12/14/2023 11:53 AM EDT) Anatomical Region Laterality Modality Breast Bilateral Mammography 12/14/2023 11:5 3 AM EDT Narrative 01/08/2024 2:50 PM EDT [facility] [address] [place] [address] Mammography Report Signed Patient: Radha Wellington MR#: [id number] : 1975 Acct:[id number] Age/Sex: 48 / F ADM Date: 12/14/23 Loc: HO.MAMMO Attending Dr: Aaron De Jesus MD Ordering Physician: Aaron De Jesus MD Results: 1Negativ e Date of Service: 12/14/23 Follow Up: 1 Year From Orig inal Mammogram Procedure(s): MM tomosynthesis screening BI Accession Number(s): [id number] cc: RAMIRO LOWE NP; Aaron De Jesus [...] in OV> 01/08/24 1445 DD/ 1153 TD/TT: Aircraft Motor Mechanic: Procedure Note Donotuseinterpreter, Image - 01/08/2024 [facility] [address] [place], [place] [address] Mammography Report Signed Patient: Radha WellingtonMR#: [id number] : 1975Acct:[id number] Age/Sex: 48 / FADM Date: 12/14/23 Loc: KWASI Attending Dr: Aaron De Jesus MD Ordering Physician: Aaron De Jesus MDResults: 1Negativ e Date of Service: 12/14/23Follow Up: 1 Year From Orig inal Mammogram Procedure(s): MM tomosynthesis screening BI Accession Number(s): [id number] cc: RAMIRO LOWE NP; Aaron De Jesus [...] in OV> 01/08/24 1445 DD/ 1153 TD/TT: Aircraft Motor Mechanic: [facility] External Provider IMG BI PROCEDURES Final Result * Albumin, Random Urine W/Creatinine (04/05/2023 8:43 AM EST) Creatinine, Urine 84.26 mg/dL [facility] Microalbumin Urine 10.0 mg/L [facility] Microalbum Creatinine Ratio Ur 11.8 <30 ug/mg cr [facility] Comment:Albumin/Creatinine R atio Reference Ranges: Normal: < 30 ug/mg creatinine Microalbuminuria: 30 - 300 ug/mg creatinineClinical Albuminuria: > 300 ug/mg creatinine Urine (Urine, Random) 04/05/2023 8:43 AM EST 04/05/2023 11:13 AM EST Ramiro MCLAIN LAB URINE ORDERABLES Final Resul t [facility] [address] [place], [place] [phone] * HPV E6/E7 RFLX PARTHA 16 18/45 (05/13/2021 2:07 PM EST) HPV mRNA E6/E7 rflx Not Detected Not Detected [facility] Comment: Methodology: Ore Tester-Mediated Amplification This assay detects E6/E7 viral messenger RNA (mRNA) from 14 high-risk HPV types (16,18,31,33,35,39,45,51,52,56,58,59,66,68). The analytical performance characteristics of this assay have been determined by [employer]. The modifications have not been cleared or approved by the FDA. This assay has been validated pursuant to the CLIA regulations and is used for clinical purposes. For additional information, please refer to http://education.Retrotope/faq/IHI550h9 (This link if provided for information/ educational purposes only.) THIS TEST WAS PERFORMED AT: [facility] [address] [place] [address],[place] [phone] LYNETTE RICHARDS MD 05/13/2021 2:07 PM EST us Ashley Sue HISTORICAL/NON ORDERABLE LABS Fi nal Result [facility] [address] * Pap Smear (05/13/2021) us Historical Provider HEALTH MAINTENANCE Final Result from Last 3 Months or Most Recently Relevant to Health Maintenance Insurance [employer] Care Teams Electrical Cad Designer Relationship Specialty Start Date End Date Ramiro Lowe ANP [address] [place] [phone] PCP - General Family Medicine 06/01/22
--- OUTSIDE RECORDS SUMMARY | 2025-02-10 18:57 | XMS_ITS | Encounter Summary ---
Author Organization [employer] Address [address] [place] [address] Care Team Providers Care Audit Analyst Name Role Phone Deidre Escobar Primary Care Provider [phone] Encounter Details Date Type Department Care Team (Late st Contact Info) Description 02/22/2023 Orders Only [facility] [address] [place] [address] [phone] Provider, MD [place] Social History Tobacco Use [...] Description 04/20/2025 3:15 PM EST Office Visit [facility] [address] [place] [address] [phone] Deidre Escobar ANP [address] [place], [place] [phone] documented as of this encounter Procedures Procedure Name Priority Date/Time Associated Diagnosis Comments HM PAP/HPV Routine 05/13/2021 documented in this encounter Results * Hm Pap Smear (05/13/2021) us Historical Provider MD HEALTH MAINTENANCE Final Result documented in this encounter Visit Diagnoses Not on filedocumented in this encounter Additional Health Concerns Assessment Noted Time PHQ-9 Depression Total Score: 10 023 9:46 AM EDT documented as of this encounter Care Teams Audit Analyst Relationship Specialty Start Date End Date Deidre Escobar ANP [address] [place] [phone] PCP - General Family Medicine 06/01/22 documented as of this encounter
== END 2025-02-10 16:20 | disposition home or self-care (01) ==
LOC: HO.HWS 15:49
PROVIDERS: PCP Nurse Practitioner Primary Care; Visit Provider Obstetrics & Gynecology
DX: N76.0 Acute vaginitis (principal); N93.9 Abnormal uterine and vaginal bleeding, unspecified; Z32.02 Encounter for pregnancy test, result negative
CPT/HCPCS: 58100; 99213

== ENCOUNTER 2025-02-10 15:49 | Outpatient (REF) | payer MEDICAID, SELFPAY ==
[2025-02-11 10:52] LABS: Bacterial Vaginosis PCR POSITIVE (Negative); Candida Group PCR NOT DETECTED (Not Detect); Candida glab krusei PCR DETECTED (Not Detect); Trichomonas vaginalis PCR NOT DETECTED (Not Detect)
[2025-02-11 11:23] LABS: CT PCR NOT DETECTED (Not Detect.); NG PCR NOT DETECTED (Not Detect.)
== END 2025-02-10 15:50 | disposition home or self-care (01) ==
LOC: HO.LNP 15:49
PROVIDERS: PCP Nurse Practitioner Primary Care; Visit Provider Obstetrics & Gynecology
DX: N76.0 Acute vaginitis (principal); N93.9 Abnormal uterine and vaginal bleeding, unspecified; Z32.02 Encounter for pregnancy test, result negative
CPT/HCPCS: 58100; 81025; 81515; 87491; 87591; 88305; 99212

== ENCOUNTER → 2025-03-02 08:10 | Outpatient (BNVA) | payer MEDICAID, SELFPAY | PROVIDERS: PCP Nurse Practitioner Primary Care; Visit Provider Obstetrics & Gynecology | DX: D25.9 Leiomyoma of uterus, unspecified (principal); N93.9 Abnormal uterine and vaginal bleeding, unspecified | CPT/HCPCS: 99212 ==

== ENCOUNTER 2025-03-02 16:00 | Outpatient (AMB) | payer MEDICAID, SELFPAY ==
--- NOTE | 2025-03-02 08:10 | A.OFFVIS_ITS ---
Intake Visit Reasons: emb results Allergies simvastatin Allergy (Unknown, Verified 02/10/25 16:07) nausea, vomiting and dizziness HPI Comments Details: The patient is presenting for follow-up to discuss the results of her abnormal uterine bleeding workup and options of treatment. The following workup was done.: H&H= 15.4/46.3 TSH, hCG, GC and chlamydia were negative. FSH/LH 21.9/16.1 Endometrial biopsy pathology showed following: Fragments of inactive endometrium with stromal breakdown; negative for atypia, hyperplasia or malignancy. Co testing was done in 09/18 was negative. Mammogram was in 12/18 was BI-RADS 1. Pelvic ultrasound showed the following: Anteverted uterus is enlarged, 10.0 x 6.0 x 6.7 cm, previously 12.7 x 6.7 x 8.5 cm. Heterogeneous myometrium, anterior lower uterine segment fibroid 2.6 x 2.0 x 2.1 cm, previously 3.0 x 2.6 x 2.5 cm; intramural fibroid in the left posterior uterine body 3.5 x 3.5 x 3.8 cm, not seen before. The endometrium is not well seen, grossly unremarkable, 5 mm in thickness. Nabothian cysts noted. Normal right ovary, 4.0 x 2.8 x 2.3 cm. No abnormal vascular flow. Dominant follicle 2.9 cm. Normal left ovary, 1.9 x 1.3 x 1.5 cm. No abnormal vascular flow. No free fluid. Impression: Uterine fibroids. [facility] Medical History Elevated cholesterol Helicobacter pylori (H. pylori) Irritable bowel syndrome Gastroesophageal reflux disease Abnormal uterine bleeding (AUB) Heavy menses Diabetes mellitus Surgical History History of esophagogastroduodenoscopy (EGD) Hx of colonoscopy H/O LEEP Family History Father Diabetes HTN (hypertension) Mother Diabetes Paternal Grandfather Diabetes Maternal Grandfather Colon cancer Social History Household Members: Spouse and Children Housing: House Alcohol intake: never Patient Tobacco Use Status: Never used Tobacco Current occupational status: unemployed Sexual orientation: Straight/Heterosexual Gender identity: Female Female Reproductive History Menstrual Age of Menarche: 10 Review of Systems Const All systems reviewed & are unremarkable except as noted in HPI and below Reports as per HPI and Reports no additional complaints GI Reports no additional complaints Reports no additional complaints Telehealth Telehealth Telehealth Platform: Telephone Location of provider rendering services: practice address Location of patient: address on file Patient Identification confirmed using: Name, : Yes Telehealth method: video Patient verbally consented to treatment: Yes Patient verbally consented to billing insurance company: Yes Patient informed of any privacy concerns related to visit: Yes Assessment & Plan Assessment & Plan (1) Uterine myoma: Code(s): D25.9 - Leiomyoma of uterus, unspecified Category: Medical Plan: Mammogram ordered. Discussed with the patient the findings on pelvic ultrasound & the risk of myosarcoma; in addition reviewed with the patient that malignancy and pre malignancy cannot be ruled out without hysterectomy for pathological evaluation ; furthermore, explained to the patient the limitation of pelvic ultrasound and endometrial biopsy in the setting. Discussed with the patient the options of treatment including expectant management versus hysterectomy; the pros and cons, risks benefits of each approach were discussed with the patient including the fact that in cases of myosarcoma, surgical treatment can lead to early diagnosis and positively affects the prognosis; after further discussion, the patient decided to proceed with expectant management. Will repeat pelvic ultrasound periodically. Instructions given to patient to call in case any of the following occurs: pressure symptoms, abnormal uterine bleeding, pelvic pain; and to schedule a six-months pelvic ultrasound (order placed) and a follow-up appointment . All questions answered, the patient verbalized understanding and agreed with the hunter n . (2) Abnormal uterine bleeding (AUB): Code(s): N93.9 - Abnormal uterine and vaginal bleeding, unspecified Category: Medical Plan: Discussed with the patient the results of the work up done and options of treatment including Lysteda, BCP's, Mirena IUD, endometrial ablation and hysterectomy. All pros, cons, risks and benefits if each option was discussed with the patient and the patient decided to think about it and get back to us. All questions answered the patient verbalized understanding. Orders: Orders US pelvic and transvaginal 6 Months D25.9 - Leiomyoma of uterus, unspecified MM tomosynthesis screening BI Today Z12.31 - Encounter for screening mammogram for malignant neoplasm of breast Coding Level of Care Code Est Pt Level 3 (43092) Diagnoses Uterine myoma D25.9 Abnormal uterine bleeding (AUB) N93.9
--- OUTSIDE RECORDS SUMMARY | 2025-03-02 08:22 | XMS_ITS | Encounter Summary ---
Author Organization [employer] Address [address] [place] [address] Care Team Providers Care Roller Coaster Engineer Name Role Phone Deidre Escobar Primary Care Provider [phone] Encounter Details Date Type Department Care Team (Late st Contact Info) Description 02/22/2023 Orders Only [facility] [address] [place] [address] [phone] Provider, [place] Social History Tobacco Use [...] Description 04/20/2025 3:15 PM EST Office Visit [facility] [address] [place] [address] [phone] Deidre Escobar ANP [address] [place], [place] [phone] documented as of this encounter Procedures Procedure [...] documented as of this encounter Care Teams Roller Coaster Engineer Relationship Specialty Start Date End Date Deidre Escobar ANP [address] [place] [id number] PCP - General Family Medicine 06/01/22 documented as of this encounter
--- OUTSIDE RECORDS SUMMARY | 2025-03-02 08:22 | XMS_ITS | Clinical Summary ---
Author Organization [employer] Address [address] [place] [address] 7 [place] [address] Care Team Providers Care Enterprise Systems Manager Name Role Phone Ramiro Lowe RAYNE Primary Care Provider [phone] Allergies Active Allergy Reactions Criticality Noted Date Comments Simvastatin 06/17/2024 Other Reaction(s): nausea, vomiting and dizziness Medications glucose blood (FREESTYLE LITE) test stripIndications :Hyperlipidemia associated with type 2 diabetes mellitus (HCC) Test blood sugar three times daily 100 each 9 022 Active TRUEplus Lancets 33G miscIndications: Type 2 diabetes mellitus with hyperlipidemia (HCC) TEST BLOOD SUGAR THREE TIMES DAILY 100 each 11 023 Active Blood Glucose Monitoring Suppl (FreeStyle Lite) w/Device kitIndications:T ype 2 diabetes mellitus with hyperlipidemia (HCC) 1 each if needed in the morning, [...] response 4 tablet 024 Active Continuous Glucose Data Entry (FreeStyle Robby 2 Brandon) deviceIndication s:Type 2 diabetes mellitus with hyperlipidemia (HCC) Scan sensor every 8 hours 1 each 024 Active Continuous Glucose Sensor (FreeStyle Robby 2 Sensor) miscIndications: Type 2 diabetes mellitus with hyperlipidemia (HCC) Apply 1 sensor every 14 days 2 each 024 Active solifenacin (VESIcare) 10 MG tablet Take 10 mg by mouth Once per day. 024 Active pantoprazole (ProtoNix) 40 MG EC tablet TAKE 1 TABLET BY MOUTH EVERY DAY 30 MINUTES BEFORE BREAKFAST Active medroxyPROGESTER one (Provera) 10 MG tablet TAKE 1 TABLET BY MOUTH EVERY DAY FOR 10 DAYS STARTING ON DAY 1 OF MENSES Active Pentips Generic Pen [place] 32G X 4 MM miscIndications: Type 2 diabetes mellitus with hyperlipidemia (HCC),Type 2 diabetes mellitus with other specified complication, with long-term current use of insulin (HCC) USE EVERY DAY 100 each 5 025 Active Jardiance 25 MGIndications:Ty pe 2 diabetes mellitus with hyperlipidemia (HCC) TAKE 1 TABLET BY MOUTH EVERY MORNING 30 tablet 5 025 Active lisinopril 2.5 MG tabletIndication s:Type 2 diabetes mellitus with hyperlipidemia (HCC),Essential hypertension TAKE 1 TABLET BY MOUTH EVERY DAY 90 tablet 025 Active glipiZIDE XL (Glucotrol XL) 5 MG 24 hr tabletIndication s:Type 2 diabetes mellitus with hyperlipidemia (HCC) TAKE 1 TABLET BY MOUTH EVERY DAY WITH A MEAL. DO NOT BREAK, CRUSH, DISSOLVE OR CHEW. 90 tablet 025 Active DULoxetine (Cymbalta) [address] capsuleIndicatio ns:Fibromyalgia TAKE 1 CAPSULE BY MOUTH EVERY DAY 30 capsule 1 025 Active Tirzepatide (Mounjaro) 2.5 MG/0.5ML solution auto-injectorInd ications:Type 2 diabetes mellitus with hyperlipidemia (HCC) Inject 2.5 mg under the skin 1 (one) time per week. 2 mL 025 Active Lantus SoloStar 100 UNIT/ML penIndications:T ype 2 diabetes mellitus with hyperlipidemia (HCC) INJECT 20 UNITS SUBCUTANEOUSLY AT BEDTIME 15 mL 3 025 Active atorvastatin (Lipitor) 40 MG tabletIndication s:Type 2 diabetes mellitus with hyperlipidemia (HCC),High cholesterol Take 1 tablet (40 mg) by mouth Once per day. 90 tablet 3 025 Active atorvastatin (Lipitor) 40 MG tabletIndication s:High cholesterol Take 1 tablet (40 mg) by mouth in the morning. 90 tablet 023 Discontinued(R eorder (will not trigger notification to Pharmacy)) Lantus SoloStar 100 UNIT/ML penIndications:T ype 2 diabetes mellitus with hyperlipidemia (HCC) INJECT 20 UNITS SUBCUTANEOUSLY AT BEDTIME 15 mL 3 024 2024 Discontinued atorvastatin (Lipitor) 40 MG tabletIndication s:Type 2 diabetes mellitus with hyperlipidemia (HCC),High cholesterol TAKE 1 TABLET BY MOUTH ONCE DAILY 90 tablet 3 025 2024 Discontinued(R eorder (will not trigger notification to Pharmacy)) Active Problems Problem Noted Date Diagnosed Date Fibromyalgia 08/15/2022 Type 2 diabetes mellitus with hyperlipidemia Essential hypertension 06/15/2022 Encounters Date Type Department Care Team Description 03/01/2025 Refill [facility] [address] [place] [phone] Olamide Vasquez MD Type 2 diabetes mellitus with hyperlipidemia (HCC); Essential hypertension; Type 2 diabetes mellitus with hyperlipidemia (HCC) 02/12/2025 Results Follow-Up [facility] [address] [place] [phone] Ramiro Lowe ANP Bacterial Vaginosis, Chlamydia/N. Gonorrhoeae RNA, TMA, Urogenitial, Hematoxylin and Eosin Stain 02/10/2025 Orders Only GENERIC EXTERNAL DATA DEPARTMENT Provider, Generic External Data 2025 Refill [facility] [address] [place] [address] Ramiro Lowe ANP Type 2 diabetes mellitus with hyperlipidemia (CMS/HCC) (CMS/HCC) 01/22/2025 2:30 PM EDT Office Visit [facility] [address] [place] [phone] Ramiro Lowe ANP Type 2 diabetes mellitus with hyperlipidemia (CMS/HCC) (CMS/HCC) (Primary Dx); Pain due to varicose veins of lower extremity; Dietary counseling; Exercise counseling; High cholesterol 01/22/2025 Travel 01/15/2025 Patient Outreach [facility] [address] [place] [address] Ramiro Lowe ANP Pre-visit Planning (SDOH Screening negative and Tobacco screening negative) 12/31/2024 Refill [facility] [address] [place] [address] Ramiro Lowe ANP Fibromyalgia 12/26/2024 Orders Only [...] Description 04/20/2025 3:15 PM EST Office Visit [facility] [address] [place] [address] Ramiro Lowe ANP [address] [place] [address] Health Maintenance Due Date Last Done Comments CT Colonography 1975 FIT DNA/Cologuard 1975 FIT 1975 FOBT 1975 Sigmoidoscopy 1975 Alcohol/Substance Use Screening 1987 Family Planning (PISQ) 1990 Hepatitis B Vaccines (1 of 3 - 19+ 3-dose series) 1994 Diabetes: Foot Exam 02/24/2024 02/23/2023 Diabetes: Urine Protein Screening 04/05/2024 04/05/2023, 03/04/2021 Mammogram 12/13/2024 12/14/2023, 11/25, 12/04/2022 COVID-19 Vaccine ( - season) 2025 10/20/2020, 09/22/2020 Influenza Vaccine (#1) [...] Diagnosis Comments HEMATOXYLIN AND EOSIN STAIN Routine 02/10/2025 4:19 PM EDT CHLAMYDIA/N. GONORRHOEAE RNA, TMA, UROGENITAL Routine 02/10/2025 3:49 PM EDT BACTERIAL VAGINOSIS PANEL Routine 02/10/2025 3:49 PM EDT POCT GLYCATED HEMOGLOBIN, TOTAL Routine 01/22/2025 2:51 PM EDT Type 2 diabetes mellitus with hyperlipidemia (CMS/HCC) ([facility]/HCC) POCT GLUCOSE Routine 01/22/2025 2:48 PM EDT Type 2 diabetes mellitus with hyperlipidemia (CMS/HCC) (CMS/HCC) LH Routine 12/26/2024 7:18 AM EDT FSH Routine 12/26/2024 7:18 AM EDT HCG, TOTAL, QN Routine 12/26/2024 7:18 AM EDT TSH W/REFLEX TO FT4 Routine 12/26/2024 7 :18 AM EDT CBC Routine 12/26/2024 7:18 AM EDT HM COLONOSCOPY Routine 06/17/2024 HEPATITIS C [...] 16 18/45 Routine 05/13/2021 2:07 PM EST PAP/HPV Routine 05/13/2021 from Last 3 Months or Most Recently Relevant to Health Maintenance Results * Hematoxylin and Eosin Stain (02/10/2025 4:19 PM EDT) 02/10/2025 4:19 PM EDT 02/11/2025 11:05 AM EDT [facility] LABS - 02/12/2025 2:21 PM EDT ----- ------- Name: Radha Wellington Age/Sex: 50/F : 1975 Unit#: [id number] Attend Dr: Aaron De Jesus MD Re02/10/25 Status: [facility] REF Location: [facility] Disch: ----- ------- SPEC : [id number] RECD: 02/11/25 STATUS: JORGE STACY NUM: [id number] HEATHER: 02/10/25-1619 [facility] DR: Aaron De Jesus MD ENTERED: 02/11/25-1114 SP TYPE: Surgical OTHR DR: RAMIRO LOWE NP ORDERED: HE Stain/2, Gross Micro L4 Diagnosis Endometrium, biopsy: Fragments of inactive endometrium with stromal breakdown; negative for atypia, hyperplasia or malignancy. Clinical History AUB, vulvovaginitis Microscopic Description Microscopic sections reviewed. Material Received EMB Gross Description Received in formalin labeled EMB is a 1.8 x 1.5 x 0.5 cm aggregate of multiple irregular fragments of congested and hemorrhagic red-maroon tissue and blood, submitted in toto in a cassette labeled A. CEDS IHC S/NG Disclaimer NOTE: Unless otherwise stated, all tissue is formalin-fixed and paraffin-embedded. Some or all of the immunohistochemical tests reported herein may have been developed and their performance characteristics determined by [facility]. They have not been cleared or approved by the U.S. Food and Drug Administration (FDA). However, the FDA has determined that such clearance or approval is not necessary. This laboratory is certified under the Clinical Laboratory Improvement Amendments of 1988 (CLIA) as qualified to perform high complexity clinical laboratory testing. Copies To: RAMIRO LOWE NP [address] [address] CONTINUED ON NEXT PAGE ----- ------- Name: Radha Wellington Age/Sex: 50/F : 1975 Unit#: [id number] Attend Dr: Aaron De Jesus MD Re02/10/25 Status: DEP REF Location: HO.LNP Disch: ----- ------- SPEC : [id number] RECD: 02/11/25 STATUS: JORGE REGIS NUM: [id number] HEATHER: 02/10/25-1619 [facility] DR: Aaron De Jesus MD ENTERED: 02/11/25-1115 SP TYPE: Surgical OTHR DR: RAMIRO LOWE NP ORDERED: TAMARA White/2, Gross Micro L4 Copies To: (Continued) Aaron De Jesus MD [facility] [address] [place] [address] [place] [phone] ----- ------- Signed (signature on file) Nataliya Maurer MD 02/12/25 1421 ----- ------- END OF REPORT [employer] External Data Provider LAB BLOOD ORDERAB LES Final Result Performing Organization Address [facility] Co de Phone Number [facility] [address] [place] [address] [phone] * (ABNORMAL) Bacterial Vaginosis (02/10/2025 3:49 PM EDT) [facility] TRICHOMONAS VAGINALIS DETECTION BY PCR NOT DETECTED Not Detect [facility] BACTERIAL VAGINOSIS DETECTION BY PCR POSITIVE(A) Negative [facility] Comment:The BV organism targ ets of the Xpert Xpress MVP test can becommensal in women; Xpert Xpress MVP positive results forbacterial vaginosis should be considered in conjunction withother clinical and patient information to determine thedisease status. Organisms that are not detected by the XpertXpress MVP test have also been reported to be associatedwith BV and aerobic vaginitis.The Xpert Xpress MVP test performance has not been evaluatedin patients under the age of 14. [employer] GROUP DETECTION BY PCR NOT DETECTED Not Detect [facility] Diana glab krusei PCR DETECTED(A) Not Detect [facility] 02/10/2025 3:49 PM EDT 02/10/2025 6:27 PM EDT [employer] External Data Provider LAB MICROBIOLOGY - GENERAL ORDERABLES Final Result Performing Organization Address [facility] Co de Phone Number [facility] [address] [place] [address] [phone] * Chlamydia/N. Gonorrhoeae RNA, TMA, Urogenitial (02/10/2025 3:49 PM EDT) Pathologist [facility] CT PCR NOT DETECTED Not Detect. [facility] Comment:A not detected test result does not exclude the possibilityof infection because test results can be affected byimproper specimen collection, concurrent antibiotic therapy,or the number of organisms in the specimen which may bebelow the sensitivity of the test. As with many diagnostictests, results from the Xpert CT/NG assay should beinterpreted in conjunction with other laboratory andclinical data available to the clinician.Xpert CT/NG performance has not been evaluated in patientsless than 14 years of age. The assay should not be used forthe evaluationof suspected sexual abuse or for other medico-legalindications. Additional testing is recommended in anycircumstance when false positive or false negative resultscould lead to adverse medical, social or psychologicalconsequences. NG PCR NOT DETECTED Not Detect. [facility] Comment:A not detected test result does not exclude the possibilityof infection because test results can be affected byimproper specimen collection, concurrent antibiotic therapy,or the number of organisms in the specimen which may bebelow the sensitivity of the test. As with many diagnostictests, results from the Xpert CT/NG assay should beinterpreted in conjunction with other laboratory andclinical data available to the clinician.Xpert CT/NG performance has not been evaluated in patientsless than 14 years of age. The assay should not be used forthe evaluationof suspected sexual abuse or for other medico-legalindications. Additional testing is recommended in anycircumstance when false positive or false negative resultscould lead to adverse medical, social or psychologicalconsequences. 02/10/2025 3:49 PM EDT 02/10/2025 6:27 PM EDT us Generic External Data Provider LAB MICROBIOLOGY - GENERAL ORDERABLES Final Result [facility] [address] [place] [phone] * (ABNORMAL) POCT HGB A1C (01/22/2025 2:51 PM EDT) Hemoglobin A1C 10.0(A) 4.0 - 5.7 % QC Media Lot # [id number] Lot# Expiration Date Blood 01/22/2025 2:51 PM EDT us Ramiro Lowe ANP POINT OF CARE TEST ENTER/EDIT OR DERABLES Final Result * (ABNORMAL) POCT Glucose (01/22/2025 2:48 PM EDT) Pathologist [facility] Glucose Blood, POC 288(A) 60 - 200 mg/dL QC Media Lot # [id number] Lot# Expiration Date Blood Capillary blood specimen / Unknown 01/22/2025 2:48 PM EDT Ramiro Lowe ANP POINT OF CARE TEST ENTER/EDIT OR DERABLES Final Result * TSH with Reflex to Free T4 (12/26/2024 7:18 AM EDT) [facility] TSH reflex Free T4 1.80 0.32 - 4.0 uIU/mL [facility] 12/26/2024 7:18 AM EDT 12/26/2024 7:18 AM EDT Generic External Data Provider LAB BLOOD ORDERAB LES Final Result [facility] [address] [place] [phone] * (ABNORMAL) CBC (12/26/2024 7:18 AM EDT) [facility] White Blood Count 3.5(L) 4.8 - 10.8 X10*3/uL [facility] Red Blood Count 5.17 4.20 - 5.50 X10*6/uL [facility] Hemoglobin 15.4 12.0 - 16.0 g/dl [facility] Hematocrit 46.3 37.0 - 47.0 % [facility] Mean Corpuscular Volume 89.6 80.0 - 98.0 fL [facility] Mean Corpuscular Hemoglobin 29.8 27.0 - 33.0 pg [facility] Mean Corpuscular HGB Conc 33.3 31.0 - 35.0 g/dl [facility] Red Cell Distribution Width 12.5 11.0 - 16.0 % [facility] Platelet Count 186 160 - 400 X10*3/uL [facility] Mean Platelet Volume 11.4 9.4 - 12.3 fL [facility] NRBC Pct Auto 0.0 0.0 - 0.2 /100WBC [facility] NRBC Abs Auto 0.000 0.0 - 0.012 X10*3/uL [facility] 12/26/2024 7:18 AM EDT 12/26/2024 7:18 AM EDT us Generic External Data Provider LAB BLOOD ORDERAB LES Final Result [facility] [address] [place] [phone] * hCG, Total, Quantitative (12/26/2024 7:18 AM EDT) HCG Quantitative <2 mIU/mL [facility] Comment:Weeks post LMP Appro ximate hCG(Last Menstrual Period) Range (mIU/ml)3 - 4 weeks 9 - 1304 - 5 weeks 75 - 2,6005 - 6 weeks 850 - 20,8006 - 7 weeks 4000 - 100,2007 - 12 weeks 11,500 - 289,68940 - 16 weeks 18,300 - 137,04616 - 29 weeks (2nd trimester) 1,400 - 53,52693 - 41 weeks (3rd trimester) 940 - [...] Final Result Performing Organization Address [facility] de Phone Number [facility] [address] [place] [phone] * LH (12/26/2024 7:18 AM EDT) Lutenizing Hormone 16.1 mIU/mL [facility] Comment:Reference Range Foll icular Phase 1.9-12.5 Mid-Cycle Peak 8.7-76.3 Luteal Phase 0.5-16.9 Postmenopausal 10.0-54.7THIS TEST WAS PERFORMED AT:[employer] [place] [phone] RICHARDS MD 12/26/2024 7:18 AM EDT 12/26/2024 7:18 AM EDT Generic External Data Provider LAB BLOOD ORDERAB LES Final Result Performing Organization Address [facility] de Phone Number [facility] [address] [place] [phone] * FSH (12/26/2024 7:18 AM EDT) Follicle Stimulating Hormone 21.9 mIU/mL [facility] Comment:Reference Range Foll icular Phase 2.5-10.2 Mid-cycle Peak 3.1-17.7 Luteal Phase 1.5- 9.1 Postmenopausal 23.0-116.3THIS TEST WAS PERFORMED AT:[facility] [address] [phone] RICHARDS MD 12/26/2024 7:18 AM EDT 12/26/2024 7:18 AM EDT Generic External Data Provider LAB BLOOD ORDERAB LES Final Result Performing Organization Address [facility] Co de Phone Number [facility] [address] [place] [phone] * Hm Colonoscopy (06/17/2024) Colonoscopy Normal Normal Narrative Yoanna Ch - 06/17/2024 Recommended 10 years. See see external hospital admission note on 06/17/2024 Historical Provider HEALTH MAINTENANCE Final Result * Hepatitis C Antibody with Reflex to HCV, RNA, Quantitative, Real-Time PCR (01/30/2024 8:38 AM EDT) Pathologist [facility] Hepatitis C Antibody Nonreactive Nonreactive [facility] Comment:Antibodies to HCV no t detected; does not exclude early acuteHCV infection. Blood Venous blood specimen / Unknown 01/30/2024 8:38 AM EDT 01/30/2024 10:56 AM EDT [facility] LAB BLOOD ORDERABLES Final Resul t [facility] [address] [place] [phone] * HIV-1/2 Antigen and Antibodies, Fourth Generation, with Reflexes (01/30/2024 8:38 AM EDT) Pathologist [facility] HIV AB/AG Nonreactive Nonreactive [facility] Comment:HIV-1 p24 Ag and/or HIV-1/HIV-2 Ab not detected.A test result that is nonreactive does not exclude thepossibility of exposure to or infection with HIV-1 and/orHIV-2. Nonreactive results in this assay for individualswith prior exposure to HIV-1 and/or HIV-2 may be due toantigen and antibody levels that are below the limit ofdetection of this assay.The [employer] HIV Ag/Ab Combo assay result andsupplemental assay results should be interpreted inconjunction with the patient's clinical presentation,history and other laboratory results. If the results areinconsistent with clinical evidence, additional testing issuggested to confirm the result. Blood Venous blood specimen / Unknown 01/30/2024 8:38 AM EDT 01/30/2024 10:56 AM EDT Ramiro Lowe ANP LAB BLOOD ORDERABLES Final Resul t Performing Organization Address [facility] Co de Phone Number [facility] [address] [place] [phone] * (ABNORMAL) Lipid Panel, Standard (01/30/2024 8:38 AM EDT) Triglycerides 118 <150 mg/dL [facility] Comment:Desirable Triglyceri de: less than 150 mg/dLBorderline High Triglyceride 150-199 mg/dLHigh Triglyceride: 200-499 mg/dLVery High Triglyceride: greater than or equal to 5OO mg/dL Cholesterol 215(H) <200 mg/dL [facility] Comment:Desirable Cholestero l: less than 200 mg/dLBorderline High Cholesterol: 200-239 mg/dLHigh Cholesterol: greater than 239 mg/dL LDL Cholesterol Calculated 140(H) <100 mg/dL [facility] Comment:Desirable LDL: less than 100 mg/dLNear Optimal/Above Optimal LDL: 110- 129 mg/dLBorderline High LDL: 130-159 mg/dLHigh LDL: 160-189 mg/dLVery High LDL: greater than or equal to 190 mg/dL HDL Cholesterol 52 >40 mg/dL [facility] Comment:Desirable HDL: great er than 40 mg/dL Note: This HDL assay may give artificially low results in patients with liver disease. Blood Venous blood specimen / Unknown 01/30/2024 8:38 AM EDT 01/30/2024 10:56 AM EDT Ramiro Lowe ANP LAB BLOOD ORDERABLES Final Resul t Performing Organization Address [facility]/ZIP Co de Phone Number [facility] [address] [place] [phone] [phone] * BI Mammogram Screening Tomosynthesis Bilateral (12/14/2023 11:53 AM EDT) Anatomical Region Laterality Modality Breast Bilateral Mammography 12/14/2023 11:5 3 AM EDT Narrative 01/08/2024 2:50 PM EDT [address] [place] [address] Mammography Report Signed Patient: Radha Wellington MR#: [id number] : 1975 Acct:[id number] Age/Sex: 48 / F ADM Date: 12/14/23 Loc: [facility] Attending Dr: Aaron De Jesus MD Ordering Physician: Aaron De Jesus MD Results: 1Negativ e Date of Service: 12/14/23 Follow Up: 1 Year From Orig inal Mammogram Procedure(s): MM tomosynthesis screening BI Accession Number(s): [id number] cc: RAMIRO LOWE NP; Aaron De Jesus [...] in OV> 01/08/24 1445 DD/ 1153 TD/TT: Consumer Lending Manager: Procedure Note Donotuseinterpreter, Image - 01/08/[address] [place] [address] Mammography Report Signed Patient: Radha WellingtonMR#: [id number] : 1975Acct:[id number] Age/Sex: 48 / FADM Date: 12/14/23 Loc: [facility] Attending Dr: Aaron De Jesus MD Ordering Physician: Aaron De Jesus MDResults: 1Negativ e Date of Service: 12/14/23Follow Up: 1 Year From [facility] ina Mammogram Procedure(s): MM tomosynthesis screening BI Accession Number(s): [id number] cc: RAMIRO LOWE IT HELP DESK ANALYST; Aaron De Jesus MD EXAMINATION: MM SCREENING [...] in OV> 01/08/24 1445 DD/ 1153 TD/TT: Consumer Lending Manager: us [facility] External Provider IMG BI PROCEDURES Final Result * Albumin, Random Urine W/Creatinine (04/05/2023 8:43 AM EST) Creatinine, Urine 84.26 mg/dL [facility] Microalbumin Urine 10.0 mg/L [facility] Microalbum Creatinine Ratio Ur 11.8 <30 ug/mg cr [facility] Comment:Albumin/Creatinine R atio Reference Ranges: Normal: < 30 ug/mg creatinine Microalbuminuria: 30 - 300 ug/mg creatinineClinical Albuminuria: > 300 ug/mg creatinine Urine (Urine, Random) 04/05/2023 8:43 AM EST 04/05/2023 11:13 AM EST Ramiro MCLAIN LAB URINE ORDERABLES Final Resul t Performing Organization Address [facility]/ZIP Co de Phone Number [facility] [address] [place] [address] [phone] * HPV E6/E7 RFLX PARTHA 16 18/45 (05/13/2021 2:07 PM EST) HPV mRNA E6/E7 rflx Not Detected Not Detected [facility] Comment: Methodology: Compliance Manager-Mediated Amplification This assay detects E6/E7 viral messenger RNA (mRNA) from 14 high-risk HPV types (16,18,31,33,35,39,45,51,52,56,58,59,66,68). The analytical performance characteristics of this assay have been determined by [employer]. The modifications have not been cleared or approved by the FDA. This assay has been validated pursuant to the CLIA regulations and is used for clinical purposes. For additional information, please refer to http://education.[facility]/faq/MHJ689t8 (This link if provided for information/ educational purposes only.) THIS TEST WAS PERFORMED AT: [employer] [address] [place] [address],[place] [address] LYNETTE RICHARDS MD 05/13/2021 2:07 PM EST Ashley Sue HISTORICAL/NON ORDERABLE LABS Fi nal Result Performing Organization Address City/[facility]/ZIP Co de Phone Number [facility] [address] * Hm Pap Smear (05/13/2021) Historical Provider HEALTH MAINTENANCE Final Result from Last 3 Months or Most Recently Relevant to Health Maintenance Insurance [facility] C3 Care Teams Enterprise Systems Manager Relationship Specialty Start Date End Date Ramiro Lowe ANP [address] [place] [phone] PCP - General Family Medicine 06/01/22
--- OUTSIDE RECORDS SUMMARY | 2025-03-02 08:22 | XMS_ITS | Clinical Summary ---
Author Organization [facility] Address [address] [place] [address] Care Team Providers Care Customs [employer] Border [employer] Officer Name Role Phone Unavailable Primary Care Provider [...] (1 of 3 - 19+ 3-dose series) 01/26 COVID-19 Vaccine (1 - season) 2025 Pneumococcal Vaccines 50+ (1 of 1 - PCV) 2025 Zoster (Shingles) Vaccine (1 of 2) 2025
--- OUTSIDE RECORDS SUMMARY | 2025-03-02 08:22 | XMS_ITS | Encounter Summary ---
Author Organization [employer] Address [address] [facility] 7t [place] [address] Care Team Providers Care Clarification Operator Name Role Phone Shawn Deidre MCLAIN Primary Care Provider Reason for Visit * Reason Comments Med Refill Encounter Details Date Type Department Care Team ([facility] st Contact Info) Description 03/01/2025 Refill [facility] [address] [place] [address] Olamide Vasquez MD [address] [place] [address] Type 2 diabetes mellitus with hyperlipidemia (HCC); Essential hypertension; Type 2 diabetes mellitus with hyperlipidemia (HCC) Social History Tobacco Use Types Packs/Day Years [...] Description 04/20/2025 3:15 PM EST Office Visit [facility] [address] [place] [address] Deidre Escobar ANP [address] [place] [address] documented as of this encounter Visit Diagnoses Diagnosis Type 2 diabetes mellitus with hyperlipidemia (HCC) Essential hypertension Unspecified essential hypertension documented in this encounter Additional Health Concerns Assessment Noted Time PHQ-9 Depression Total Score: 1 01/23/20 25 3:25 PM EDT documented as of this encounter Care Teams Clarification Operator Relationship Specialty Start Date End Date Deidre Escobar ANP [address] [place] [address] PCP - General Family Medicine 06/01/22 documented as of this encounter
--- OUTSIDE RECORDS SUMMARY | 2025-03-02 08:22 | XMS_ITS | Encounter Summary ---
Author Organization [employer] Address [address] [facility] 7t [place] [address] Care Team Providers Care Hvac Designer Name Role Phone Deidre Escobar Primary Care Provider [phone] Encounter Details Date Type Department Care Team ([facility] st Contact Info) Description 02/12/2025 Results Follow-Up [facility] [address] [place] [address] Deidre Escobar ANP [address] [place] [address] Bacterial Vaginosis, Chlamydia/N. Gonorrhoeae RNA, TMA, Urogenitial, Hematoxylin and Eosin Stain Social History Tobacco Use Types Packs/Day Years [...] as of this encounter Miscellaneous Notes * Result Encounter Note - RAYNE Fajardo - 02/12/2025 4:09 PM EDT Outside provider documented in this encounter Plan of Treatment Upcoming Encounters Date Type Department Care Team (Late st Contact Info) Description 04/20/2025 3:15 PM EST Office Visit [facility] [address] [place] [phone] Deidre Escobar ANP [address] [place] [address] documented as of this encounter Visit Diagnoses Not on filedocumented in this encounter Additional Health Concerns Assessment Noted Time PHQ-9 Depression Total Score: 1 01/23/20 25 3:25 PM EDT documented as of this encounter Care Teams Hvac Designer Relationship Specialty Start Date End Date Deidre Escobar ANP [address] [place] [id number] PCP - General Family Medicine 06/01/22 documented as of this encounter
--- OUTSIDE RECORDS SUMMARY | 2025-03-02 18:18 | XMS_ITS | Encounter Summary ---
Author Organization [email or web address] Address [address] [facility] 7t [place] [address] Care Team Providers Care Buttonholer Name Role Phone Deidre Escobar Primary Care Provider [phone] Encounter Details Date Type Department Care Team (Late st Contact Info) Description 02/22/2023 Orders Only [facility] [address] [place] [address] [phone] Provider, [place] Social History Tobacco Use [...] Description 04/20/2025 3:15 PM EST Office Visit [facility] [address] [place] [address] [phone] Deidre Escobar ANP [address] [place], [place] [phone] documented as of this encounter Procedures Procedure [...] documented as of this encounter Care Teams Buttonholer Relationship Specialty Start Date End Date Deidre Escobar ANP [address] [place] [phone] PCP - General Family Medicine 06/01/22 documented as of this encounter
--- OUTSIDE RECORDS SUMMARY | 2025-03-02 18:18 | XMS_ITS | Clinical Summary ---
Author Organization [facility] Address [address] [place] [address] Care Team Providers Care Ice Handler Name Role Phone Unavailable Primary Care Provider [...]
--- OUTSIDE RECORDS SUMMARY | 2025-03-02 18:18 | XMS_ITS | Encounter Summary ---
Author Organization [facility] [employer] Address [address] [facility] 7t [place] [address] Care Team Providers Care Pc Support Specialist Name Role Phone Deidre Escobar Primary Care Provider [phone] Encounter Details Date Type Department Care Team ([facility] st Contact Info) Description 02/12/2025 Results Follow-Up [facility] [address] [place] [address] Deidre Escobar ANP [address] [place] [address] Bacterial Vaginosis, Chlamydia/N. Gonorrhoeae RNA, TMA, Urogenitial, [...] Description 04/20/2025 3:15 PM EST Office Visit [facility] [address] [place] [phone] Deidre Escobar ANP [address] [place] [address] documented as of this encounter Visit Diagnoses Not on filedocumented in this encounter Additional Health Concerns Assessment Noted Time PHQ-9 Depression Total Score: 1 01/23/20 25 3:25 PM EDT documented as of this encounter Care Teams Pc Support Specialist Relationship Specialty Start Date End Date Deidre Escobar ANP [address] [place] [phone] PCP - General Family Medicine 06/01/22 documented as of this encounter
--- OUTSIDE RECORDS SUMMARY | 2025-03-02 18:18 | XMS_ITS | Encounter Summary ---
Author Organization [employer] Address [address] [facility] 7t [place] [address] Care Team Providers Care Strategic Manager Name Role Phone Shawn Deidre MCLAIN Primary Care Provider [phone] Reason for Visit * Reason Comments Med Refill Encounter Details Date Type Department Care Team ([facility] st Contact Info) Description 03/01/2025 Refill [facility] [address] [place] [address] Olamide Vasquez MD [address] [place] [address] Type 2 diabetes mellitus with hyperlipidemia (HCC); [...] Description 04/20/2025 3:15 PM EST Office Visit [facility] [address] [place] [address] Deidre Escobar ANP [address] [place] [address] documented as of this encounter Visit Diagnoses Diagnosis Type 2 diabetes mellitus with hyperlipidemia (HCC) Essential hypertension Unspecified essential hypertension documented in this encounter Additional Health Concerns Assessment Noted Time PHQ-9 Depression Total Score: 1 01/23/20 25 3:25 PM EDT documented as of this encounter Care Teams Strategic Manager Relationship Specialty Start Date End Date Deidre Escobar ANP [address] [place] [address] PCP - General Family Medicine 06/01/22 documented as of this encounter
--- OUTSIDE RECORDS SUMMARY | 2025-03-02 18:18 | XMS_ITS | Clinical Summary ---
Author Organization [employer] Address [address] [place] [address] 7 [place] [address] Care Team Providers Care Taxicab Dispatcher Name Role Phone Ramiro Lowe RAYNE Primary Care Provider Allergies Active Allergy Reactions Criticality Noted Date [...] response 4 tablet 024 Active Continuous Glucose Hydraulic Chair Assembler (FreeStyle Robby 2 Brandywine) deviceIndication s:Type 2 diabetes mellitus with hyperlipidemia [...] OF MENSES 024 Active Pentips Generic Pen [place] 32G X 4 MM miscIndications: Type 2 diabetes mellitus with hyperlipidemia (HCC),Type 2 diabetes mellitus with other specified complication, with long-term current use of insulin (HCC) USE EVERY DAY 100 each 5 025 Active Jardiance 25 MGIndications:Ty pe 2 diabetes mellitus with hyperlipidemia (HCC) TAKE 1 TABLET BY MOUTH EVERY MORNING 30 tablet 5 025 Active DULoxetine (Cymbalta) [address] [...] per day. 90 tablet 3 025 Active lisinopril 2.5 MG tabletIndication s:Type [...] eorder (will not trigger notification to Pharmacy)) lisinopril 2.5 MG tabletIndication s:Type 2 diabetes mellitus with hyperlipidemia (HCC),Essential hypertension TAKE 1 TABLET BY MOUTH EVERY DAY 90 tablet 025 2024 Discontinued glipiZIDE XL (Glucotrol XL) 5 MG 24 hr tabletIndication s:Type 2 diabetes mellitus with hyperlipidemia (HCC) TAKE 1 TABLET BY MOUTH EVERY DAY WITH A MEAL. DO NOT BREAK, CRUSH, DISSOLVE OR CHEW. 90 tablet 025 2024 Discontinued Active Problems Problem Noted Date Diagnosed Date Fibromyalgia 08/15/2022 Type 2 diabetes mellitus with hyperlipidemia Essential hypertension 06/15/2022 Encounters Date Type Department Care Team Description 03/01/2025 Refill [facility] [address] [place] [address] Olamide Vasquez MD Type 2 diabetes mellitus with hyperlipidemia (HCC); Essential hypertension; Type 2 diabetes mellitus with hyperlipidemia (HCC) 02/12/2025 Results Follow-Up [facility] [address] [place] [address] Ramiro Lowe ANP Bacterial Vaginosis, Chlamydia/N. Gonorrhoeae RNA, TMA, Urogenitial, Hematoxylin and Eosin Stain 02/10/2025 Orders Only GENERIC EXTERNAL DATA DEPARTMENT Provider, Generic External Data 2025 Refill [facility] [address] [place] [address] Ramiro Lowe ANP Type 2 diabetes mellitus with hyperlipidemia (CMS/HCC) ([facility]/HCC) 01/22/2025 2:30 PM EDT Office Visit [facility] [address] [place] [address] Ramiro Lowe ANP Type 2 diabetes mellitus with hyperlipidemia (CMS/HCC) ([facility]) (Primary Dx); Pain due to varicose veins of lower extremity; Dietary counseling; Exercise counseling; High cholesterol 01/22/2025 Travel 01/15/2025 Patient Outreach [facility] [address] [place] [phone] Ramiro Lowe ANP Pre-visit Planning (SDOH Screening negative and Tobacco screening negative) 12/31/2024 Refill [facility] [address] [place] [phone] Ramiro Lowe ANP Fibromyalgia 12/26/2024 Orders Only [...] Description 04/20/2025 3:15 PM EST Office Visit [facility] [address] [place] [address] Ramiro Lowe, ANP [address] [place] [address] Health Maintenance Due Date Last Done Comments [...] mellitus with hyperlipidemia (CMS/HCC) ([facility]/HCC) POCT GLUCOSE Routine 01/22/2025 2:48 PM EDT [...] 4:19 PM EDT 02/11/2025 11:05 AM EDT [facility] - 02/12/2025 2:21 PM EDT ----- ------- Name: Radha Wellington Age/Sex: 50/F : 1975 Unit#: [id number] Attend Dr: Aaron De Jesus MD Re02/10/25 Status: [facility] Location: [facility] Disch: ----- ------- SPEC : [id number] RECD: 02/11/25-110 STATUS: JORGE KE[place] NUM: [id number] HEATHER: 02/10/25-[address] [facility] [address]: Aaron De Jesus MD ENTERED: 02/11/25-1115 [...] developed and their performance characteristics determined by [facility]. They have not been cleared or approved by the U.S. Food and Drug Administration (FDA). However, the FDA has determined that such clearance or approval is not necessary. This laboratory is certified under the Clinical Laboratory Improvement Amendments of 1988 (CLIA) as qualified to perform high complexity clinical laboratory testing. Copies To: RAMIRO LOWE NP [address] [place] [address] CONTINUED ON NEXT PAGE ----- ------- Name: Radha Wellington Age/Sex: 50/F : 1975 Unit#: [id number] Attend Dr: Aaron De Jesus MD Re02/10/25 Status: DEP REF Location: [facility] Disch: ----- ------- SPEC : [id number] RECD: 02/11/25 STATUS: JORGE STACY NUM: [id number] HEATHER: 02/10/25-[address] [facility] [address]: Aaron De Jesus MD ENTERED: 02/11/25-1114 SP TYPE: Surgical OTHR DR: RAMIRO LOWE NP ORDERED: HE Stain/2, Gross Micro L4 Copies To: (Continued) Aaron De Jesus MD [facility] [address] [place] [address] [address] [place] [address] ----- ------- Signed (signature on file) Nataliya Maurer MD 02/12/25 1421 ----- ------- END OF REPORT Generic External Data Provider LAB BLOOD ORDERAB LES Final Result [facility] [address] [place] [phone] * (ABNORMAL) Bacterial Vaginosis (02/10/2025 3:49 PM EDT) TRICHOMONAS VAGINALIS DETECTION BY PCR NOT DETECTED Not Detect [facility] BACTERIAL VAGINOSIS DETECTION BY PCR POSITIVE(A) Negative [facility] Comment:The BV organism targ ets of [...] DETECTION BY PCR NOT DETECTED Not Detect [facility] Diana glab krusei PCR DETECTED(A) Not Detect [facility] 02/10/2025 3:49 PM EDT 02/10/2025 6:27 PM EDT us Generic External Data Provider LAB MICROBIOLOGY - GENERAL ORDERABLES Final Result [facility] [address] [place] [phone] [phone] * Chlamydia/N. Gonorrhoeae RNA, TMA, Urogenitial (02/10/2025 3:49 PM EDT) CT PCR NOT DETECTED Not Detect. [facility] Comment:A not detected test result does [...] psychologicalconsequences. NG PCR NOT DETECTED Not Detect. [facility] Comment:A not detected test result does [...] 3:49 PM EDT 02/10/2025 6:27 PM EDT Generic External Data Provider LAB MICROBIOLOGY - GENERAL ORDERABLES Final Result [facility] [address] [place] [address] [phone] * (ABNORMAL) POCT HGB A1C (01/22/2025 2:51 PM EDT) Hemoglobin A1C 10.0(A) 4.0 - 5.7 % QC Media Lot # [id number] Lot# Expiration Date Blood 01/22/2025 2:51 PM EDT Ramiro Lowe ANP POINT OF CARE TEST ENTER/EDIT OR DERABLES Final Result * (ABNORMAL) POCT Glucose (01/22/2025 2:48 PM EDT) Pathologist [facility] Glucose Blood, POC 288(A) 60 - 200 mg/dL QC Media Lot # [id number] Lot# Expiration Date 564, Blood Capillary blood specimen / Unknown 01/22/2025 2:48 PM EDT us Ramiro MCLAIN POINT OF CARE TEST ENTER/EDIT OR DERABLES Final Result * TSH with Reflex to Free T4 (12/26/2024 7:18 AM EDT) Pathologist [facility] TSH reflex Free T4 1.80 0.32 - 4.0 uIU/mL [facility] 12/26/2024 7:18 AM EDT 12/26/2024 7:18 AM EDT Generic External Data Provider LAB BLOOD ORDERAB LES Final Result Performing Organization Address City/[facility]/ZIP Co de Phone Number [facility] [address] [place] [address] [phone] * (ABNORMAL) CBC (12/26/2024 7:18 AM EDT) Pathologist [facility] White Blood Count 3.5(L) 4.8 - 10.8 X10*3/uL [facility] Red Blood Count 5.17 4.20 - 5.50 X10*6/uL [facility] Hemoglobin 15.4 12.0 - 16.0 g/dl [facility] Hematocrit 46.3 37.0 - 47.0 % [facility] Mean Corpuscular Volume 89.6 80.0 - 98.0 fL [facility] Mean Corpuscular Hemoglobin 29.8 27.0 - 33.0 pg [facility] Mean Corpuscular HGB Conc 33.3 31.0 - 35.0 g/dl [facility] Red Cell Distribution Width 12.5 11.0 - 16.0 % [facility] Platelet Count 186 160 - 400 X10*3/uL [facility] Mean Platelet Volume 11.4 9.4 - 12.3 fL [facility] NRBC Pct Auto 0.0 0.0 - 0.2 /100WBC [facility] NRBC Abs Auto 0.000 0.0 - 0.012 X10*3/uL [facility] 12/26/2024 7:18 AM EDT 12/26/2024 7:18 AM EDT us Generic External Data Provider LAB BLOOD ORDERAB LES Final Result [facility] [address] [place] [phone] * hCG, Total, Quantitative (12/26/2024 7:18 AM EDT) HCG Quantitative <2 mIU/mL [facility] Comment:Weeks post LMP Appro ximate hCG(Last Menstrual Period) Range (mIU/ml)3 - 4 weeks 9 - 1304 - 5 weeks 75 - 2,6005 - 6 weeks 850 - 20,8006 - 7 weeks 4000 - 100,2007 - 12 weeks 11,500 - 289,31961 - 16 weeks 18,300 - 137,96458 - 29 weeks (2nd trimester) 1,400 - 53,29794 - 41 weeks (3rd trimester) 940 - [...] ORDERAB LES Final Result Performing Organization Address [facility] Co de Phone Number [facility] [address] [place] [phone] * LH (12/26/2024 7:18 AM EDT) Lutenizing Hormone 16.1 mIU/mL [facility] Comment:Reference Range Fol licular Phase 1.9-12.5 Mid-Cycle Peak 8.7-76.3 Luteal Phase 0.5-16.9 Postmenopausal 10.0-54.7THIS TEST WAS PERFORMED AT:[email or web address] [id number] [place] [phone] RICHARDS MD 12/26/2024 7:18 AM EDT 12/26/2024 7:18 AM EDT Generic External Data Provider LAB BLOOD ORDERAB LES Final Result Performing Organization Address [facility] de Phone Number [facility] [address] [place] [phone] * FSH (12/26/2024 7:18 AM EDT) Follicle Stimulating Hormone 21.9 mIU/mL [facility] Comment:Reference Range Foll icular Phase 2.5-10.2 Mid-cycle Peak 3.1-17.7 Luteal Phase 1.5- 9.1 Postmenopausal 23.0-116.3THIS TEST WAS PERFORMED AT:[email or web address] [id number] [place] [address]NGLZBLYNETTE RICHARDS MD 12/26/2024 7:18 AM EDT 12/26/2024 7:18 AM EDT Generic External Data Provider LAB BLOOD ORDERAB LES Final Result Performing Organization Address [facility]/ZIP Co de Phone Number [facility] [address] [place] [phone] [phone] * Hm Colonoscopy (06/17/2024) Pathologist [facility] Colonoscopy Normal Normal Narrative Yoanna Ch - 06/17/2024 Recommended 10 years. See see external hospital admission note on 06/17/2024 Historical Provider HEALTH MAINTENANCE Final Result * Hepatitis C Antibody with Reflex to HCV, RNA, Quantitative, Real-Time PCR (01/30/2024 8:38 AM EDT) [facility] Hepatitis C Antibody Nonreactive Nonreactive [facility] Comment:Antibodies to HCV no t detected; does not exclude early acuteHCV infection. Blood Venous blood specimen / Unknown 01/30/2024 8:38 AM EDT 01/30/2024 10:56 AM EDT us [facility] LAB BLOOD ORDERABLES Final Resul t Performing Organization Address [facility]/ZIP Co de Phone Number [facility] [address] [place] [address] [phone] * HIV-1/2 Antigen and Antibodies, Fourth Generation, with Reflexes (01/30/2024 8:38 AM EDT) Pathologist [facility] HIV AB/AG Nonreactive Nonreactive [facility] Comment:HIV-1 p24 Ag and/or HIV-1/HIV-2 Ab not detected.A test result that is nonreactive does not exclude thepossibility of exposure to or infection with HIV-1 and/orHIV-2. Nonreactive results in this assay for individualswith prior exposure to HIV-1 and/or HIV-2 may be due toantigen and antibody levels that are below the limit ofdetection of this assay.The [employer] HIV Ag/Ab Combo assay result andsupplemental assay results should be interpreted inconjunction with the patient's clinical presentation,history and other laboratory results. If the results areinconsistent with clinical evidence, additional testing issuggested to confirm the result. Blood Venous blood specimen / Unknown 01/30/2024 8:38 AM EDT 01/30/2024 10:56 AM EDT Ramiro Lowe [facility] LAB BLOOD ORDERABLES Final Resul t Performing Organization Address [facility] Co de Phone Number [facility] [address] [place] [phone] * (ABNORMAL) Lipid Panel, Standard (01/30/2024 8:38 AM EDT) Triglycerides 118 <150 mg/dL [facility] Comment:Desirable Triglyceri de: less than 150 mg/dLBorderline High Triglyceride 150-199 mg/dLHigh Triglyceride: 200-499 mg/dLVery High Triglyceride: greater than or equal to 5OO mg/dL Cholesterol 215(H) <200 mg/dL [facility] Comment:Desirable Cholestero l: less than 200 mg/dLBorderline High Cholesterol: 200-239 mg/dLHigh Cholesterol: greater than 239 mg/dL LDL Cholesterol Calculated 140(H) <100 mg/dL [facility] Comment:Desirable LDL: less than 100 mg/dLNear Optimal/Above Optimal LDL: 110- 129 mg/dLBorderline High LDL: 130-159 mg/dLHigh LDL: 160-189 mg/dLVery High LDL: greater than or equal to 190 mg/dL HDL Cholesterol 52 >40 mg/dL [facility] Comment:Desirable HDL: great er than 40 mg/dL Note: This HDL assay may give artificially low results in patients with liver disease. Blood Venous blood specimen / Unknown 01/30/2024 8:38 AM EDT 01/30/2024 10:56 AM EDT Ramiro Lowe ANP LAB BLOOD ORDERABLES Final Resul t Performing Organization Address [facility] Co de Phone Number [facility] [address] [place] [phone] * BI Mammogram Screening Tomosynthesis Bilateral (12/14/2023 11:53 AM EDT) Anatomical Region Laterality Modality Breast Bilateral Mammography 12/14/2023 11:5 3 AM EDT Narrative 01/08/2024 2:50 PM EDT [facility] [address] [place] [address] Mammography Report Signed Patient: Radha Wellington MR#: [id number] : 1975 Acct:[id number] Age/Sex: 48 / F ADM Date: 12/14/23 Loc: MAMMBarbara Attending Dr: Aaron De Jesus MD Ordering Physician: Aaron De Jesus MD Results: 1Negativ e Date of Service: 12/14/23 Follow Up: 1 Year From [facility] ina Mammogram Procedure(s): MM tomosynthesis screening BI Accession Number(s): [id number] cc: RAMIRO LOWE SOFTWARE TEST TECHNICIAN; Aaron De Jesus MD EXAMINATION: MM SCREENING [...] in OV> 01/08/24 1445 DD/ 1153 TD/TT: Principal Account Clerk: Procedure Note Donotuseinterpreter, Image - 01/08/2024 [facility] [address] [place] [address] Mammography Report Signed Patient: Radha WellingtonMR#: [id number] : 1975Acct:[id number] Age/Sex: 48 / FADM Date: 12/14/23 Loc: HO.MAMMO Attending Dr: Aaron De Jesus MD Ordering Physician: Aaron De Jesus MDResults: 1Negativ e Date of Service: 12/14/23Follow Up: 1 Year From Orig inal Mammogram Procedure(s): MM tomosynthesis screening BI Accession Number(s): [id number] cc: RAMIRO LOWE NP; Aaron De Jesus [...] by Yelena Montero MD in OV> 01/08/24 144 DD/ 1153 TD/TT: Principal Account Clerk: [facility] External Provider IMG BI PROCEDURES Final Result * Albumin, Random Urine W/Creatinine (04/05/2023 8:43 AM EST) Creatinine, Urine 84.26 mg/dL [facility] Microalbumin Urine 10.0 mg/L [facility] Microalbum Creatinine Ratio Ur 11.8 <30 ug/mg cr [facility] Comment:Albumin/Creatinine R atio Reference Ranges: Normal: < 30 ug/mg creatinine Microalbuminuria: 30 - 300 ug/mg creatinineClinical Albuminuria: > 300 ug/mg creatinine Urine (Urine, Random) 04/05/2023 8:43 AM EST 04/05/2023 11:13 AM EST Ramiro Lowe [facility] URINE ORDERABLES Final Resul t Performing Organization Address [facility] Co de Phone Number [facility] [address] [place] [phone] * HPV E6/E7 RFLX PARTHA 16 18/45 (05/13/2021 2:07 PM EST) HPV mRNA E6/E7 rflx Not Detected Not Detected [facility] Comment: Methodology: Director Prison-Mediated Amplification This assay detects E6/E7 viral messenger RNA (mRNA) from 14 high-risk HPV types (16,18,31,33,35,39,45,51,52,56,58,59,66,68). The analytical performance characteristics of this assay have been determined by [employer]. The modifications have not been cleared or approved by the FDA. This assay has been validated pursuant to the CLIA regulations and is used for clinical purposes. For additional information, please refer to http://education.ClariFI/faq/RPR964a6 (This link if provided for information/ educational purposes only.) THIS TEST WAS PERFORMED AT: [facility] [address] [place] [address] [address],[place] [address] LYNETTE RICHARDS MD 05/13/2021 2:07 PM EST us Ashley Sue HISTORICAL/NON ORDERABLE LABS Fi nal Result Performing Organization Address City/[facility]/ZIP Co de Phone Number [facility] [address] [place] [address], * Hm Pap Smear (05/13/2021) us Historical Provider HEALTH MAINTENANCE Final Result from Last 3 Months or Most Recently Relevant to Health Maintenance Insurance [employer] [id number] [place] [phone] [place] [address] [phone] [place] [phone] Care Teams Taxicab Dispatcher Relationship Specialty Start Date End Date Ramiro Lowe ANP [address] [place] [phone] PCP - General Family Medicine 06/01/22
== END 2025-03-03 08:26 | disposition home or self-care (01) ==
PROVIDERS: PCP Nurse Practitioner Primary Care; Visit Provider Obstetrics & Gynecology
DX: D25.9 Leiomyoma of uterus, unspecified (principal); N93.9 Abnormal uterine and vaginal bleeding, unspecified
CPT/HCPCS: 99213